=== PATIENT | male | born 1935 | race Caucasian/White ===

== ENCOUNTER 2016-12-28 12:15 | Emergency (ER) | payer BC ==
[~2016-12-28] VITALS: Ht 182.9 cm; Wt 79.0 kg
[~2016-12-28 12:15] MED LIST: ACET-1138 PO; ASPEC325 PO; CLB200 PO; GLUCOSAMINE PO; HYDR-5688 PO; LEVO75TA PO; MULT-655 PO; MULTIVITAMIN PO; [UNRECOGNIZED DRUG - CODE] PO
[2016-12-28 12:25] VITALS: TEMP 36.6; Ht 182.9 cm; Wt 79.0 kg
[2016-12-28] MEDS ORDERED: SULFAMETHOXAZOLE/TRIMETHOPRIM DS 800/160MG TAB PO STA (12:35)
--- NOTE | 2016-12-28 12:37 | EMERGENCY ROOM VISIT NOTE ---
History Report prepared by Alyson: Will Nam Under the Supervision of: Dr. Bernardino Brown M.D. First contact with patient: 12:29 Chief Complaint: LEG PAIN,LEG INJURY Stated Complaint: BLOOD CLOT LOWER LEFT LEG,REFERRED BY DR PATEL History of Present Illness The patient is a 81 year old male with a history of a blood clot in his leg who presents to the Emergency Room with complaints of waxing and waning lower left leg pain that started 2 days ago. He says that he was sitting on his couch when the pain came on, and he denies any twisting or injuries that would have caused the pain. The patient says that his leg has been very painful to the touch. He says that he put a hot pad on it the next day, which made the pain a bit better. He adds that he has been taking ibuprofen for the pain as well. The patient notes that yesterday evening, his left foot turned red. The patient has no history of ankle injuries in the past, and he is not on any blood thinners. The patient has no history of infections like this. Source of History: patient Onset: 2 days ago Position: leg (left) Symptom Intensity: very painful Timing: waxes/wanes Modifying Factors (Relieving): ibuprofen, other (heat pad) Note: Associated symptoms: Left foot redness starting yesterday evening. Denies injury to leg or foot. Review of Systems See HPI for pertinent positives & negatives. A total of 10 systems reviewed and were otherwise negative. Past Medical & Surgical Medical Problems: (1) Intestinal obstruction (2) No chronic diseases present (3) TIA (transient ischemic attack) Surgical Problems: (1) History of left hip replacement Family History Cancer Heart disease Kidney disease Social History Smoking Status: Former Smoker Smokeless Tobacco Use: No Alcohol Use: occasionally Marital Status: Housing Status: lives with family Occupation Status: employed Current/Historical Medications Scheduled Cephalexin Monohydrate (Keflex), 500 MG PO QID Levothyroxine Sodium (Synthroid), 75 MCG PO DAILY Sulfa/Trimethoprim (Bactrim Ds 800MG/160MG), 1 TAB PO BID Allergies Coded Allergies: No Known Allergies (Unverified , 12/06/13) Physical Exam Vital Signs Date Time Temp Pulse Resp B/P (MAP) Pulse Ox O2 Delivery O2 Flow Rate FiO2 12/28/16 14:45 62 18 145/75 97 Room Air 12/28/16 12:25 36.6 68 18 125/72 95 Room Air Physical Exam GENERAL: Patient is a healthy-appearing well-nourished 81 year old male. HEAD: Normocephalic atraumatic EYES: Ocular movements intact pupils equal and react to light OROPHARYNX mucous membranes are moist no exudates present no erythema or edema present NECK: Supple no nuchal rigidity CHEST: Good equal expansion LUNGS: Clear and equal to auscultation CARDIAC: Normal S1 and S2 ABDOMEN: Soft nontender no guarding BACK: No CVA tenderness EXTREMITIES: Left foot is grossly swollen, appears to have cellulitis present that extends midway up the tibia. NEURO: Patient is following commands and answering questions appropriately. Alert and oriented x3 Cranial Nerves 2-12 grossly intact Medical Decision & Procedures ER Provider Diagnostic Interpretation: US results as stated below per my review and radiologist interpretation: LEFT LOWER EXTREMITY VENOUS DOPPLER CLINICAL HISTORY: Left lower extremity swelling. COMPARISON STUDY: No previous studies for comparison. TECHNIQUE: Sonography of the deep venous system of the left lower extremity was performed. Compression and augmentation were evaluated. FINDINGS: The left common femoral, superficial femoral and popliteal veins were compressible. Augmentation was normal. Flow was shown within the deep calf vessels. IMPRESSION: No evidence of deep venous thrombus within the left lower extremity. Electronically signed by: Stevie Riley M.D. 12/28/2016 2:32 PM Dictated Date/Time: 12/28/2016 2:32 PM Medications Administered Medications (Trade) Dose Ordered Sig/Morales Route Start Time Stop Time Status Last Admin Dose Admin Cephalexin Monohydrate (Keflex Cap) 500 mg NOW ONCE PO 12/28/16 12:45 12/28/16 12:46 DC 12/28/16 12:54 500 MG Trimethoprim/ Sulfamethoxazole (Septra Ds 800/ 160MG Tab) 1 tab NOW STAT PO 12/28/16 12:35 12/28/16 12:36 DC 12/28/16 12:53 1 TAB ED Course 1231: Past medical records reviewed. The patient was evaluated in room C10. A complete history and physical examination was performed. 1235: Ordered Septra Ds 800/1600MG Tab 1 tab PO. 1245: Ordered Keflex Cap 500 mg PO. 1350: I reevaluated the patient, and after a discussion, he agreed to an ultrasound. 1447: Upon reexamination the patient is resting comfortably. I discussed results and treatment plan with the patient. he verbalizes agreement and understanding. The patient is ready for discharge. Medical Decision Differential diagnosis: Etiologies such as cellulitis, abscess, MRSA infection, DVT, necrotizing fasciitis, dermatitis, drug eruption, as well as others were entertained. This is a 81-year-old male who presents emergency department complaining of left lower extremity leg swelling. The patient is concerned about a blood clot therefore using shared medical decision-making, the patient was sent for an ultrasound of the left lower extremities. I do believe that the patient is actually suffering from a cellulitis that extends from the foot midway up the tibia. Again using shared medical decision-making the decision was made to start the patient on Keflex and Bactrim and treat the patient for cellulitis. I feel that the patient is well enough he can be safely discharged home as he has no fevers and there is noted to be any streaking up the leg. I advised the patient that the rash make it slightly worse over the next 48 hours but should start to improve. Patient was also told to return for a repeat ultrasound if the swelling continues in the next week. Patient was in agreement with the treatment plan. Medication Reconcilliation Current Medication List: was personally reviewed by me Blood Pressure Screening Patient's blood pressure: Normal blood pressure Impression Primary Impression: Cellulitis Scribe Attestation The scribe's documentation has been prepared under my direction and personally reviewed by me in its entirety. I confirm that the note above accurately reflects all work, treatment, procedures, and medical decision making performed by me. Departure Information Dispostion Home / Self-Care Prescriptions Sulfa/Trimethoprim (Bactrim Ds 800MG/160MG) Tab 1 TAB PO BID for 10 Days, #20 TAB Prov: Bernardino Brown MD 12/28/16 Cephalexin Monohydrate (KEFLEX) 500 Mg Cap 500 MG PO QID for 10 Days, #40 CAP Prov: Bernardino Brown MD 12/28/16 Referrals Pro,Hosea Don M.D. (PCP) Forms HOME CARE DOCUMENTATION FORM, IMPORTANT VISIT INFORMATION, School Instructions, Work Instructions Patient Instructions Cellulitis - [facility], [facility] Additional Instructions Need repeat Ultrasound in one week if swelling continues Return if fevers develop or red streaking You have been examined and treated today on an emergency basis only. This is not a substitute for, or an effort to provide, complete comprehensive medical care. It is impossible to recognize and treat all injuries or illnesses in a single emergency department visit. It is therefore important that you follow up closely with Dr Patel. Call as soon as possible for an appointment. Thank you for your time and consideration. I look forward to speaking with you again soon. Please don't hesitate to call us if you have any questions. Problem Qualifiers Primary Impression: Cellulitis Site of cellulitis: extremity Site of cellulitis of extremity: lower extremity Laterality: left Qualified Codes: L03.116 - Cellulitis of left lower limb
[2016-12-28] MEDS ORDERED: CEPHALEXIN MONOHYDRATE 250 MG CAP PO ONE (12:45)
[2016-12-28] MEDS ORDERED: SYN75 PO (12:52)
--- NOTE | 2016-12-28 14:33 | DIAGNOSTIC IMAGING REPORT ---
LEFT LOWER EXTREMITY VENOUS DOPPLER CLINICAL HISTORY: Left lower extremity swelling. COMPARISON STUDY: No previous studies for comparison. TECHNIQUE: Sonography of the deep venous system of the left lower extremity was performed. Compression and augmentation were evaluated. FINDINGS: The left common femoral, superficial femoral and popliteal veins were compressible. Augmentation was normal. Flow was shown within the deep calf vessels. IMPRESSION: No evidence of deep venous thrombus within the left lower extremity. Electronically signed by: Stevie Riley M.D. 12/28/2016 2:32 PM Dictated Date/Time: 12/28/2016 2:32 PM
[2016-12-28 14:45] VITALS: BP 145/75; PULSE 62; O2SAT 97
[2016-12-28] MEDS ORDERED: SULF800T23 PO (14:49)
[2016-12-28] MEDS ORDERED: CEPH500C2 PO (14:49)
== END 2016-12-28 15:01 | disposition home or self-care (01) ==
LOC: C.EDB 12:16 → C.EDC 15:01
DX: L03.116 Cellulitis of left lower limb (principal); Z86.718 Personal history of other venous thrombosis and embolism; Z86.73 Personal history of transient ischemic attack (TIA), and cerebral infarction without residual deficits; Z96.642 Presence of left artificial hip joint; Z87.891 Personal history of nicotine dependence

== ENCOUNTER → 2017-05-26 | Day surgery (SDC) | payer BC, OTHER ==
[2017-05-20 14:05] VITALS: Ht 182.9 cm; Wt 75.0 kg
[~2017-05-26] VITALS: Ht 182.9 cm; Wt 75.0 kg
[~2017-05-26] MED LIST changes: +500ML BSS 0.3ML EPI 1:1000PF IRRIG ONE; -ACET-1138 PO; +ACETAMINOPHEN 325 MG TAB PO PRN; +AMVISC PLUS 0.8ML SYRINGE INT OCU ONE; -ASPEC325 PO; +ATROPINE SULFATE 0.1 MG/ML 5ML SYR IV PRN; +BSS FLUSH ONE; -CLB200 PO; +ENDOCOAT 0.85ML SYRINGE INT OCU ONE; +EpHEDrine SULFATE INJ 50 MG/ML AMP IV PRN; +EpINEphrine INJ 1MG/ML AMP 1 MG/ML AMP ONE; -GLUCOSAMINE PO; -HYDR-5688 PO; +LACTATED RINGER'S 1000ML 500 ML IV SCH; -LEVO75TA PO; +LIDOCAINE 4% OP SOLN DROP CHARGE ONE; +LIDOCAINE 4% OP SOLN DROP CHARGE OPL SCH; +LIDOCAINE HCL 1% MPF 2 ML VIAL ONE; +LIDOCAINE HCL 2% 2 ML VIAL (20MG/ML) ONE; +MIDAZOLAM HCL 1 MG/ML 2ML VIAL ONE; +MIX: 4ML BSS 1ML EPI 1:1000 PF TOP ONE; +MOXIFLOXACIN OPH SOLN PER DROP CHARGE ONE; -MULT-655 PO; -MULTIVITAMIN PO; +MULTTAB58 PO; +NUTRTAB53 PO; +POVIDONE-IODINE OP SOLN 30 ML BTL ONE; +PROPARACAINE 0.5% OP SOLN PER DROP CHARGE OPL SCH; +PROPOFOL IV EMULSION 10 MG/ML 20 ML VIAL IV ONE; +SYN75 PO; +TOBRAMYCIN/DEXAMETHASONE OPH OINT PER APPLN CHARGE ONE; -[UNRECOGNIZED DRUG - CODE] PO
--- NOTE | 2017-05-26 09:13 | History & Physical Bridge - SC ---
H&P Re-Evaluation Bridge Note: I have examined the patient, reviewed the History & Physical and in the interval since the performance of the History & Physical I have noted the following changes of clinical significance: No changes noted
[2017-05-26] MEDS: PHENYLEPHRINE HCL 2.5% OP SOLN PER DROP CHARGE OPL SCH ×3 (09:19→09:28)
[2017-05-26] MEDS: TROPICAMIDE 1% OP SOLN PER DROP CHARGE OPL SCH ×3 (09:20→09:28)
[2017-05-26] MEDS: CYCLOPENTOLATE HCL 1% OP SOLN PER DROP CHARGE OPL SCH ×3 (09:22→09:29)
[2017-05-26] MEDS: MOXIFLOXACIN OPH SOLN PER DROP CHARGE OPL SCH ×3 (09:24→09:30)
--- NOTE | 2017-05-26 10:34 | [facility] Post Operative Brief Note ---
Immediate Operative Summary Operative Date May 26, 2017. Pre-Operative Diagnosis Left cataract Post-Operative Diagnosis same Procedure(s) Performed Left Cataract Phacoemulsification With Intraocular Lens Implant; Toric Lens Surgeon Dr. Aldridge Cassandra Developer Surgeon(s) none Estimated Blood Loss 0 Findings left cataract Specimens none Complication(s) None Disposition
--- NOTE | 2017-05-26 10:35 | [facility] Operative Report ---
Operative Report Date of Service May 26, 2017. Operative Report DATE OF OPERATION: 05/26/17 PREOPERATIVE DIAGNOSIS: Senile nuclear cataract and astigmatism, left eye POSTOPERATIVE DIAGNOSIS: Senile nuclear cataract and astigmatism, left eye PROCEDURE PERFORMED: Phacoemulsification with toric intraocular lens implantation, left eye SURGEON: Dr. Kevin Aldridge ANESTHESIA: Topical with 1% intracameral lidocaine and monitored anesthesia care COMPLICATIONS: None DESCRIPTION OF PROCEDURE: After positively identifying the patient both verbally and by wristband in the preoperative area, the left eye was marked as the operative eye. Using a Robomarker, the 168 degree axis was marked after placing a drop of proparacaine. The patient was then brought back to the operating room by the anesthesia and nursing staff where they were given a drop of tetracaine and betadine into the operative eye. They were then sterilely prepped and draped in the standard fashion typical for ophthalmic surgery. Steri-strips were placed along the upper eyelids to keep the lashes back, and a lid speculum was placed into the operative eye. At this point, a documented time out was performed with members of the ophthalmology, nursing, and anesthesia staffs all agreeing upon the correct patient, correct location for surgery, correct procedure, and correct type and power of intraocular lens to be implanted. The microscope was then swung into position. Then, a paracentesis wound was made using a sideport blade. Then, in sequence, 1% preservative-free lidocaine followed by Endocoat viscoelastic was injected into the anterior chamber. Next , the main incision was made with a keratome blade in triplanar fashion. A sharp cystotome was introduced into the eye and used to create a tear in the anterior capsule, which was directed into a continuous curvilinear capsulorrhexis using Utrata forceps. Hydrodissection was then performed with BSS on a flat-tip cannula. Next, the phacoemulsification handpiece was introduced into the eye and used to remove the nucleus in a etwyef-pol-hpxpoor fashion. This was done without complication and then the irrigation-aspiration handpiece was introduced into the eye and used to remove all remaining cortical and epinuclear material. Amvisc was then injected into the anterior chamber as well as into the capsular bag and using the lens injector system, a [id number] 20.0 D lens, serial number [id number], and expiration date 12/2020 was injected into the capsular bag and rotated into the correct position to correctly line up with the toric marking. Next, the irrigation-aspiration handpiece was used to remove all remaining Amvisc. BSS was used to hydrate the main wound, and then BSS was injected into the paracentesis site to reach physiologic pressure and then the main wound was checked and found to be watertight. The patient was given drops of Vigamox and tobradex ointment into the operative eye, and then the surrounding area was cleaned and dried. A clear plastic shield was placed over the eye and the patient was then sat up and taken from the operating room by the anesthesia staff having tolerated the procedure well and suffering no complications. DISPOSITION: The patient was returned to the recovery room in stable condition. I attest to the content of the Intraoperative Record and any orders documented therein. Any exceptions are noted below.
--- NOTE | 2017-05-26 10:36 | Discharge Instructions-SurgCtr ---
Discharge Instructions Date of Service May 26, 2017. Visit Reason for Visit: Cataract Left Eye Discharge Discharge Diagnosis / Problem: left cataract Discharge Goals Goal(s): Decrease discomfort, Improve function Activity Recommendations Activity Limitations: as noted below Anesthesia . Post Anesthesia Instructions: If you have had General Anesthesia or IV Sedation: * Do not drive today. * Resume driving when surgeon permits. * Do not make important decisions or sign legal documents today. * Call surgeon for: 1. Temperature elevations greater than 101 degrees F. 2. Uncontrollable pain. 3. Excessive bleeding. 4. Persistent nausea and vomiting. 5. Medication intolerance (nausea, vomiting or rash). * For nausea and vomiting use only clear liquids such as: tea, soda, bouillon until nausea subsides, then gradually increase diet as tolerated. * If you have any concerns or questions, call your surgeon's office. If physician is unavailable and it is an emergency, call 911 or go to the nearest emergency room. . Instructions / Follow-Up Instructions / Follow-Up ACTIVITY RECOMMENDATIONS: * Light activities. * You may walk outside, read, watch television. * You may notice redness on the white part of the eye and some blurry vision - this is normal. MEDICATIONS: Resume previous medications unless instructed otherwise by your surgeon. Start all eye drops at 12:30 pm today: * Eye drops (today): Prednisone - one drop in operative eye every 2 hours while awake Ofloxacin - one drop in operative eye every 2 hours while awake Ilevro - one drop in operative eye daily SPECIAL CARE INSTRUCTIONS: * Tape plastic shield over eye to sleep at night. Call your doctor at with any concerns or problems. FOLLOW UP VISIT: Follow-up with Dr Aldridge at [facility] as scheduled. Diet Recommendations Home Diet: no limitations Procedures Procedures Performed: Left Cataract Phacoemulsification With Intraocular Lens Implant; Toric Lens Pending Studies Studies pending at discharge: no Medical Emergencies . Who to Call and When: Medical Emergencies: If at any time you feel your situation is an emergency, please call 911 immediately. . Non-Emergent Contact Non-Emergency issues call your: Surgeon . . "Provider Documentation" section prepared by Kevin Aldridge. .
--- NOTE | 2017-05-26 10:55 | Anesthesiology Progress Note ---
Anesthesia Post Op Note Date & Time May 26, 2017 at 10:55 Vital Signs Pain Intensity: 0 Vital Signs Past 12 Hours Date Time Temp Pulse Resp B/P (MAP) Pulse Ox O2 Delivery O2 Flow Rate FiO2 05/26/17 10:51 138/80 05/26/17 10:49 61 14 05/26/17 10:49 60 14 98 05/26/17 10:45 151/84 05/26/17 10:44 66 13 05/26/17 10:44 77 13 98 05/26/17 10:40 145/83 05/26/17 10:40 131/79 05/26/17 10:39 67 05/26/17 10:39 67 96 05/26/17 10:39 36.3 68 12 145/83 96 Nasal Cannula 3 05/26/17 09:06 36.2 69 18 119/71 (87) 97 Room Air Notes Mental Status: alert / awake / arousable, participated in evaluation Pt Amnestic to Procedure: Yes Nausea / Vomiting: adequately controlled Pain: adequately controlled Airway Patency, RR, SpO2: stable & adequate BP & HR: stable & adequate Hydration State: stable & adequate Anesthetic Complications: no major complications apparent
[2017-05-26 11:04] VITALS: TEMP 36.3
[2017-05-26 11:27] VITALS: BP 119/77; PULSE 62; O2SAT 98
== END | disposition home or self-care (01) ==
LOC: X.SURG 08:51
PROVIDERS: ATTEND Ophthalmology
DX: H25.12 Age-related nuclear cataract, left eye (principal); H52.202 Unspecified astigmatism, left eye; E03.9 Hypothyroidism, unspecified; E78.5 Hyperlipidemia, unspecified; Z90.89 Acquired absence of other organs; Z96.642 Presence of left artificial hip joint; Z86.718 Personal history of other venous thrombosis and embolism; K21.9 Gastro-esophageal reflux disease without esophagitis; M19.90 Unspecified osteoarthritis, unspecified site; N40.0 Benign prostatic hyperplasia without lower urinary tract symptoms; Z86.19 Personal history of other infectious and parasitic diseases; Z86.12 Personal history of poliomyelitis

== ENCOUNTER → 2017-07-28 | Day surgery (SDC) | payer OTHER ==
[2017-07-15 15:41] VITALS: Ht 182.9 cm; Wt 75.0 kg
[~2017-07-28] VITALS: Ht 182.9 cm; Wt 75.0 kg
[~2017-07-28] MED LIST changes: +FENTANYL CITRATE INJ 50 MCG/1 ML 2 ML VIAL ONE; -LIDOCAINE 4% OP SOLN DROP CHARGE OPL SCH; +LIDOCAINE 4% OP SOLN DROP CHARGE OPR SCH; -LIDOCAINE HCL 2% 2 ML VIAL (20MG/ML) ONE; -PROPARACAINE 0.5% OP SOLN PER DROP CHARGE OPL SCH; +PROPARACAINE 0.5% OP SOLN PER DROP CHARGE OPR SCH
[2017-07-28] MEDS: PHENYLEPHRINE HCL 2.5% OP SOLN PER DROP CHARGE OPR SCH ×3 (08:47→08:57)
[2017-07-28] MEDS: TROPICAMIDE 1% OP SOLN PER DROP CHARGE OPR SCH ×3 (08:48→08:58)
[2017-07-28] MEDS: CYCLOPENTOLATE HCL 1% OP SOLN PER DROP CHARGE OPR SCH ×3 (08:49→08:59)
[2017-07-28] MEDS: MOXIFLOXACIN OPH SOLN PER DROP CHARGE OPR SCH ×3 (08:50→09:00)
--- NOTE | 2017-07-28 09:05 | History & Physical Bridge - SC ---
H&P Re-Evaluation Bridge Note: I have examined the patient, reviewed the History & Physical and in the interval since the performance of the History & Physical I have noted the following changes of clinical significance: No changes noted. right eye cataract surgery
--- NOTE | 2017-07-28 09:38 | [facility] Post Operative Brief Note ---
Immediate Operative Summary Operative Date Jul 28, 2017. Pre-Operative Diagnosis Right Eye Cataract Post-Operative Diagnosis same Procedure(s) Performed Right Cataract Phacoemulsification With Intraocular Lens Implant Surgeon Dr. Sintia Aldridge Nut Sheller Machine Operator Surgeon(s) 0 Estimated Blood Loss 0 Findings Consistent with Post-Op Diagnosis Specimens none Anesthesia Type MAC Complication(s) none Disposition Accompanied Pt To Recovery: no Disposition:
--- NOTE | 2017-07-28 09:39 | [facility] Operative Report ---
Operative Report Date of Service Jul 28, 2017. Operative Report DATE OF OPERATION: 07/28/17 PREOPERATIVE DIAGNOSIS: Senile nuclear cataract and astigmatism, right eye POSTOPERATIVE DIAGNOSIS: Senile nuclear cataract and astigmatism, right eye PROCEDURE PERFORMED: Phacoemulsification with toric intraocular lens implantation, right eye SURGEON: Dr. Kevin Aldridge ANESTHESIA: Topical with 1% intracameral lidocaine and monitored anesthesia care COMPLICATIONS: None DESCRIPTION OF PROCEDURE: After positively identifying the patient both verbally and by wristband in the preoperative area, the right eye was marked as the operative eye. Using a Robomarker, the 12 degree axis was marked after placing a drop of proparacaine. The patient was then brought back to the operating room by the anesthesia and nursing staff where they were given a drop of tetracaine and betadine into the operative eye. They were then sterilely prepped and draped in the standard fashion typical for ophthalmic surgery. Steri-strips were placed along the upper eyelids to keep the lashes back, and a lid speculum was placed into the operative eye. At this point, a documented time out was performed with members of the ophthalmology, nursing, and anesthesia staffs all agreeing upon the correct patient, correct location for surgery, correct procedure, and correct type and power of intraocular lens to be implanted. The microscope was then swung into position. Then, a paracentesis wound was made using a sideport blade. Then, in sequence, 1% preservative-free lidocaine followed by Endocoat viscoelastic was injected into the anterior chamber. Next , the main incision was made with a keratome blade in triplanar fashion. A sharp cystotome was introduced into the eye and used to create a tear in the anterior capsule, which was directed into a continuous curvilinear capsulorrhexis using Utrata forceps. Hydrodissection was then performed with BSS on a flat-tip cannula. Next, the phacoemulsification handpiece was introduced into the eye and used to remove the nucleus in a wnfgua-ubg-rohwldd fashion. This was done without complication and then the irrigation-aspiration handpiece was introduced into the eye and used to remove all remaining cortical and epinuclear material. Amvisc was then injected into the anterior chamber as well as into the capsular bag and using the lens injector system, a [id number] 20.5 D lens, serial number [id number], and expiration date 05/2019 was injected into the capsular bag and rotated into the correct position to correctly line up with the toric marking. Next, the irrigation-aspiration handpiece was used to remove all remaining Amvisc. BSS was used to hydrate the main wound, and then BSS was injected into the paracentesis site to reach physiologic pressure and then the main wound was checked and found to be watertight. The patient was given drops of Vigamox and tobradex ointment into the operative eye, and then the surrounding area was cleaned and dried. A clear plastic shield was placed over the eye and the patient was then sat up and taken from the operating room by the anesthesia staff having tolerated the procedure well and suffering no complications. DISPOSITION: The patient was returned to the recovery room in stable condition. I attest to the content of the Intraoperative Record and any orders documented therein. Any exceptions are noted below.
[2017-07-28 09:40] VITALS: TEMP 36.2
--- NOTE | 2017-07-28 09:40 | Discharge Instructions-SurgCtr ---
Discharge Instructions Date of Service Jul 28, 2017. Visit Reason for Visit: Cataract Right Eye Discharge Discharge Diagnosis / Problem: right cataract Discharge Goals Goal(s): Decrease discomfort, Improve function Activity Recommendations Activity Limitations: as noted below Anesthesia . Post Anesthesia Instructions: If you have had General Anesthesia or IV Sedation: * Do not drive today. * Resume driving when surgeon permits. * Do not make important decisions or sign legal documents today. * Call surgeon for: 1. Temperature elevations greater than 101 degrees F. 2. Uncontrollable pain. 3. Excessive bleeding. 4. Persistent nausea and vomiting. 5. Medication intolerance (nausea, vomiting or rash). * For nausea and vomiting use only clear liquids such as: tea, soda, bouillon until nausea subsides, then gradually increase diet as tolerated. * If you have any concerns or questions, call your surgeon's office. If physician is unavailable and it is an emergency, call 911 or go to the nearest emergency room. . Instructions / Follow-Up Instructions / Follow-Up ACTIVITY RECOMMENDATIONS: * Light activities. * You may walk outside, read, watch television. * You may notice redness on the white part of the eye and some blurry vision - this is normal. MEDICATIONS: Resume previous medications unless instructed otherwise by your surgeon. Start all eye drops at 11:30 am today: * Eye drops (today): Prednisone - one drop in operative eye every 2 hours while awake Ofloxacin - one drop in operative eye every 2 hours while awake Prolensa - one drop in operative eye daily SPECIAL CARE INSTRUCTIONS: * Tape plastic shield over eye to sleep at night. Call your doctor at with any concerns or problems. FOLLOW UP VISIT: Follow-up with Dr Aldridge at [facility] as scheduled. Diet Recommendations Home Diet: no limitations Procedures Procedures Performed: Right Cataract Phacoemulsification With Intraocular Lens Implant Pending Studies Studies pending at discharge: no Medical Emergencies . Who to Call and When: Medical Emergencies: If at any time you feel your situation is an emergency, please call 911 immediately. . Non-Emergent Contact Non-Emergency issues call your: Surgeon . . "Provider Documentation" section prepared by Kevin Aldridge. .
[2017-07-28 09:56] VITALS: BP 129/70; PULSE 57; O2SAT 94
--- NOTE | 2017-07-28 09:58 | Anesthesia Progress Nt - [facility] ---
Anesthesia Post Op Note Date & Time Jul 28, 2017 at 09:58 Vital Signs Pain Intensity: 0 Vital Signs Past 12 Hours Date Time Temp Pulse Resp B/P (MAP) Pulse Ox O2 Delivery O2 Flow Rate FiO2 07/28/17 09:56 57 20 129/70 (89) 94 Room Air 07/28/17 09:40 36.2 63 16 116/69 (85) 96 Room Air 07/28/17 08:41 36.4 72 16 146/75 (98) 97 Room Air Notes Mental Status: alert / awake / arousable, participated in evaluation Pt Amnestic to Procedure: Yes Nausea / Vomiting: adequately controlled Pain: adequately controlled Airway Patency, RR, SpO2: stable & adequate BP & HR: stable & adequate Hydration State: stable & adequate Anesthetic Complications: no major complications apparent
== END | disposition home or self-care (01) ==
LOC: X.SURG 08:18
PROVIDERS: ATTEND Ophthalmology
DX: H25.11 Age-related nuclear cataract, right eye (principal); H52.201 Unspecified astigmatism, right eye; E03.9 Hypothyroidism, unspecified; Z86.718 Personal history of other venous thrombosis and embolism; Z90.49 Acquired absence of other specified parts of digestive tract; Z96.642 Presence of left artificial hip joint; Z87.891 Personal history of nicotine dependence

== ENCOUNTER 2022-08-04 17:35 | Inpatient (IN) ==
[2022-08-04] MEDS ORDERED: SODIUM CHLORIDE 0.9% 1000ML 500 ML IV ONE ×2 (17:43→19:11)
--- NOTE | 2022-08-04 17:51 | Emergency Department Note ---
Impression & Plan Weakness, Anemia, Cellulitis, Hypokalemia, Pancytopenia ED Provider Note NAME: ERICA COX AGE: 87 SEX: M : 1935 ARRIVES VIA: Ambulance INFORMANT: Patient, ED PROVIDER(S): Hosea Owens DO CHIEF COMPLAINT: Weakness HPI: The patient is an 86 male who presented to the emergency department by ambulance for an evaluation of generalized weakness. The patient has a history of metastatic pancreatic cancer. He received chemotherapy. He last received chemotherapy on Wednesday. He has been very weak ever since. He has noticed some swelling in his legs and redness to his right foot. He denies having any trauma. He said no vomiting. He denies having any chest pain or difficulty breathing. He has noticed some abdominal distention after the chemotherapy treatment. The patient states that he was not seen by his family doctor today. He states otherwise he has been compliant with his outpatient medication. ROS: See above HPI for pertinent positives & negatives. A total of 10 systems reviewed and were otherwise negative. PAST MEDICAL HISTORY: See Below PAST SURGICAL HISTORY: See Below FAMILY HISTORY: See Below SOCIAL HISTORY: See Below HOME MEDICATIONS: See Below ALLERGIES: See Below VITALS: See Below PHYSICAL EXAMINATION: GENERAL: The patient is awake and nonanxious appearing. EYES: The conjunctivae are pale. The pupils are round and reactive. EARS, NOSE, MOUTH AND THROAT: The nose is without any evidence of any deformity. Mucous membranes are dry. NECK: The neck is nontender and supple. RESPIRATORY: Normal respiratory effort is noted there is no evidence of wheezing rhonchi or rales CARDIOVASCULAR: Regular rate and rhythm noted there no murmurs rubs or gallops normal S1 normal S2. GASTROINTESTINAL: The abdomen is distended. There is no specific tenderness guarding or rigidity. There is a mass in the left upper quadrant. MUSCULOSKELETAL/EXTREMITIES: There is no evidence of gross deformity full range of motion is noted in the hips and shoulders. SKIN: Pedal edema was noted bilaterally. There is significant erythema noted to the right foot. NEUROLOGIC: Patient is awake alert and oriented x3. Strength is symmetric but diminished. MEDICAL DECISION MAKING: The patient is an 87-year-old male who has a history of pancreatic cancer who presented to the emergency department for an evaluation of generalized weakness. The patient had no fever but recently received chemotherapy. He was also found on physical exam the very swollen and erythematous right lower extremity. This was presumed to be the area of infection. The patient had borderline hypotension as well as a low white blood cell count. I discussed the patient's laboratory and radiographic studies with him. He was treated with multiple IV fluid boluses as well as IV antibiotics in the emergency department. Given the patient's comorbidities as well as his findings on laboratory studies I do feel that he would be a better candidate for inpatient management. For this reason the [facility] hospitalist was consulted. Triage Nursing notes reviewed. Prior medical records reviewed Vital Signs: reviewed and remarkable for borderline hypotension and tachycardia. Differential diagnosis: Infection, dehydration, metabolic abnormality, hypo/hyperglycemia, electrolyte disturbance, anemia, hypoxia, cardiac sources, intracerebral event, toxicologic, neurologic, as well as other pathologies. ER treatment provided: See below Diagnostics interpreted by me: ECG: EKG was obtained in the emergency department. My interpretation is sinus t achycardia 110 bpm. PVCs were noted. Nonspecific T wave flattening was also appreciated. This was compared to a tracing from June 16, 2022. No specific changes were noted. Cardiac Monitoring: An order was placed for continuous cardiac monitoring. The m onitor shows a rate of 97 bpm with sinus rhythm. Laboratory studies: As stated above and show below. Imaging studies: See below. Radiographic imaging was reviewed by myself Consultation(s): Dr. Mays was consulted with the [facility] hospitalist group. He will evaluate the patient in the emergency department. 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, 'working diagnosis continues to be metastatic prostate ca' Anemia, mild DVT (deep venous thrombosis) History of, due to prolonged sitting, > resolved Dysphagia No recent mention of dysphagia in past several PCP notes History of COVID-summer > very mild symptoms Hoarseness, chronic Hyperlipidemia Resolved per pt HLD per 02/2022 PCP note - recommend statin but patient defers at this time Hypothyroidism Mild bibasilar atelectasis Per recent CT on 06/10/22 per pt PAC (premature atrial contraction) Post-polio syndrome Chronic right leg weakness per records Per PCP records- "PT for post polio and arranged for balance" Prediabetes TIA (transient ischemic attack) Pt denies - no mention of TIA in recent PCP notes Surgical History H/O hand surgery right H/O umbilical hernia repair (06/18/22) Diagnostic Laparoscopy, Peritoneal Biopsy, Omentum Biopsy, Abdominal Wall Biopsy, Umbilical Hernia Repair by 06/18/22; GA MAC #4, ETT #7.5, Gr View 2 History of biopsy (06/18/22) Diagnostic Laparoscopy, Peritoneal Biopsy, Omentum Biopsy, Abdominal Wall Biopsy, Umbilical Hernia Repair by 06/18/22 History of cataract surgery bilat History of colonoscopy History of tooth extraction History of total left hip replacement Intestinal obstruction 1961 > with surgical repair Port-A-Cath in place (07/16/22) Insertion Access Port in Left Subclavian with Fluoroscopy - Will Joshua DO S/P ankle arthrodesis S/P appendectomy S/P hernia repair S/P tonsillectomy and adenoidectomy Family History Father Coronary heart disease Hypoplastic anemia Myocardial infarction Nephrolithiasis Heart disease Mother Hypothyroidism Sister Hypothyroidism Colorectal cancer Son Marfan syndrome Grandmother Cancer Uncle Heart disease Denies family history of Ovarian cancer Prostate cancer Breast cancer Social History Smoking Status: Former smoker Tobacco Type: Pipe Age Started Using Tobacco: 19; Age Quit Using Tobacco: 45; packs per day: 2; Cigarettes Per Day: two pipe fulls a day; Second Hand Exposure: No; Hx Alcohol Use: Yes Alcohol type: beer, wine and hard liquor Alcohol Intake Frequency: 4 or More x per/Week Hx Substance Use: No Preferred Language: Peruvian Communication Ability: Effective Visual Impairment: Limited Hearing Ability: Use of Hearing Aid Planer Operator Required: No Beliefs That Will Affect Care: None marital status: Current Living Situation: Spouse current occupational status: retired current occupation: professor at [employer], Emeritus Professor How many Children do You have: 2 Feels Safe at Home: Yes Childhood Exposure to Second-Hand Smoke: Yes caffeine: Yes (1 coffee per day) during the past year weight has: decreased > 10 lbs Dental Care, Regularly: Yes Physical Activity Frequency: 1-2 Times per Week Seatbelt Use: always Sunscreen Use: No Assistive Devices: Cane, Glasses and Hearing Aid - Bilateral Allergies Allergies Allergy/AdvReac Type Severity Reaction Status Date / Time No Known Allergies Allergy Verified 08/04/22 19:07 Home Meds Home Medications Medication Instructions Recorded Confirmed cholecalciferol (vitamin D3) 50 50 mcg PO DAILY 02/18/21 08/04/22 mcg (2,000 unit) capsule calcium carbonate 550 mg-magnesium 2 tab PO Q4H PRN Acid Reflux 06/15/22 08/04/22 hydroxide 110 mg chewable tablet levothyroxine 100 mcg tablet 100 mcg PO QAM 06/15/22 08/04/22 psyllium husk 3.4 gram/5.4 gram 1 tbsp PO BID PRN Constipation 06/16/22 08/04/22 oral powder (Metamucil) acetaminophen 325 mg tablet 325 mg PO QID PRN Pain 07/13/22 08/04/22 (Tylenol) lidocaine-prilocaine 2.5 %-2.5 % 1 applic topical DIRECTED PRN 08/04/22 08/04/22 topical cream PRIOR TO PROCEDURES loperamide 2 mg capsule 2 mg PO DIRECTED PRN Diarrhea 08/04/22 08/04/22 [id number] 1 tab PO DAILY 08/04/22 08/04/22 tablet (Multivitamin 50 Plus tablet) ondansetron HCl 8 mg tablet 8 mg PO Q8H PRN NAUSEA/VOMITING 08/04/22 08/04/22 oxycodone 5 mg tablet 5 mg PO .Q4-6H PRN Pain 08/04/22 08/04/22 pantoprazole 40 mg tablet,delayed 40 mg PO HS 08/04/22 08/04/22 release prochlorperazine maleate 10 mg 10 mg PO Q6H PRN NAUSEA/VOMITING 08/04/22 08/04/22 tablet Results & Data (ED) Vital Signs Vital Signs - 24 hr 08/04/22 17:48 08/04/22 18:05 08/04/22 18:09 Temperature 36.7 C Temperature Source Oral Pulse Rate 105 H 102 H 100 H Pulse Rate [Apical] Pulse Rate from SpO2 Sensor Pulse Rhythm Regular Pulse Strength Normal Respiratory Rate 22 18 Respiratory Effort / Characteristics Non-Labored Respiratory Depth Normal Respiratory Pattern Regular Blood Pressure 125/63 Blood Pressure [Right Arm] Blood Pressure Mean 83 Blood Pressure Mean [Right Arm] Blood Pressure Position Lying Blood Pressure Position [Right Arm] Pulse Oximetry 97 96 Oxygen Delivery Method Room Air Room Air Sepsis Recent Fever Within 48 Hours No Sepsis New/Unexplained Change in Mental Status N/A Sepsis Action Taken by Nursing Previously Notified 08/04/22 18:43 08/04/22 18:34 08/04/22 18:09 Temperature Temperature Source Pulse Rate 75 98 H Pulse Rate [Apical] 97 H Pulse Rate from SpO2 Sensor 99 H Pulse Rhythm Pulse Strength Respiratory Rate 18 21 Respiratory Effort / Characteristics Respiratory Depth Respiratory Pattern Blood Pressure Blood Pressure [Right Arm] 126/56 L Blood Pressure Mean Blood Pressure Mean [Right Arm] 79 Blood Pressure Position Blood Pressure Position [Right Arm] Lying Pulse Oximetry 95 97 Oxygen Delivery Method Room Air Sepsis Recent Fever Within 48 Hours Sepsis New/Unexplained Change in Mental Status Sepsis Action Taken by Nursing 08/04/22 18:10 08/04/22 18:20 08/04/22 18:30 Temperature Temperature Source Pulse Rate 96 H 104 H Pulse Rate [Apical] Pulse Rate from SpO2 Sensor 94 H 101 H Pulse Rhythm Pulse Strength Respiratory Rate 21 20 Respiratory Effort / Characteristics Respiratory Depth Respiratory Pattern Blood Pressure 126/56 L Blood Pressure [Right Arm] Blood Pressure Mean 79 Blood Pressure Mean [Right Arm] Blood Pressure Position Blood Pressure Position [Right Arm] Pulse Oximetry 97 96 Oxygen Delivery Method Sepsis Recent Fever Within 48 Hours Sepsis New/Unexplained Change in Mental Status Sepsis Action Taken by Nursing 08/04/22 18:30 08/04/22 18:40 Temperature Temperature Source Pulse Rate 82 101 H Pulse Rate [Apical] Pulse Rate from SpO2 Sensor 79 Pulse Rhythm Pulse Strength Respiratory Rate 15 22 Respiratory Effort / Characteristics Respiratory Depth Respiratory Pattern Blood Pressure Blood Pressure [Right Arm] Blood Pressure Mean Blood Pressure Mean [Right Arm] Blood Pressure Position Blood Pressure Position [Right Arm] Pulse Oximetry 95 Oxygen Delivery Method Sepsis Recent Fever Within 48 Hours Sepsis New/Unexplained Change in Mental Status Sepsis Action Taken by [facility] Medications Current Medication List: was personally reviewed by me Laboratory Data Attestation: I reviewed the patient's lab results. 08/04/22 18:00 08/04/22 18:00 Lab Results 08/04/22 08/04/22 08/04/22 Range/Units 17:51 18:00 18:00 WBC (4.8-10.8) K/ul RBC (4.70-6.10) M/uL Hgb (14.0-18.0) g/dl Hct (42.0-52.0) % MCV (80.0-100.0) fL MCH (25.0-34.0) pg MCHC (32.0-36.0) g/dL RDW Std Deviation (36.4-46.3) fL RDW Coeff of Dinora (11.5-14.5) % Plt Count (130-400) K/uL MPV (9.4-12.4) fL Immature Gran % (Auto) % Neut % (Auto) % Lymph % (Auto) % [place] % (Auto) % Eos % (Auto) % Baso % (Auto) % Neut # (Auto) (1.40-6.50) K/uL Lymph # (Auto) (1.2-3.4) K/uL [place] # (Auto) (0.11-0.59) K/uL Eos # (Auto) (0-0.50) K/uL Baso # (Auto) (0-0.2) K/uL Immature Gran # (Auto) (0.01-0.20) K/uL Toxic Granulation Toxic Vacuolation Dohle Bodies ESR 31 H (0-20) mm/hr PT INR APTT PTT Ratio Sodium 137 (136-145) mmol/L Potassium 3.1 L (3.5-5.1) mmol/L Chloride 106 (98-107) mmol/L Carbon Dioxide 24 (21-32) mmol/L Anion Gap 7 (3-11) BUN 33 H (6-23) mg/dl Creatinine 0.70 (0.6-1.4) mg/dl Est Cr Clr Drug Dosing 78.7 ml/min Est GFR ( Amer) 99.7 ml/min Est GFR (Non-Af Amer) 86.1 ml/min BUN/Creatinine Ratio 47.1 H (10-20) Glucose 119 H (70-99(Fasting)) mg/dl Lactate (0.4-2.0) mmol/L Calcium 6.8 L (8.5-10.1) mg/dl Magnesium 1.9 (1.7-2.4) mg/dl Total Bilirubin 0.5 (0.2-1.0) mg/dl Direct Bilirubin 0.1 (0-0.2) mg/dl AST 35 (13-39) U/L ALT 26 (7-52) U/L Alkaline Phosphatase 55 (34-104) U/L Troponin I High Sens 23.1 H (0-20) pg/ml C-Reactive Protein 17.09 H (0-0.5) mg/dl Total Protein 4.8 L (6.0-8.3) gm/dl Albumin 2.3 L (3.4-5.0) gm/dl Procalcitonin (0-0.5) ng/ml SARS-CoV-2 (PCR) NEGATIVE (Negative) Influenza Type A (PCR) Negative (Neg) Influenza Type B (PCR) Negative (Neg) RSV (RT-PCR) Negative (Neg) 08/04/22 08/04/22 08/04/22 Range/Units 18:00 18:00 18:00 WBC 1.86 L (4.8-10.8) K/ul RBC 2.88 L (4.70-6.10) M/uL Hgb 8.7 L (14.0-18.0) g/dl Hct 25.3 L (42.0-52.0) % MCV 87.8 (80.0-100.0) fL MCH 30.2 (25.0-34.0) pg MCHC 34.4 (32.0-36.0) g/dL RDW Std Deviation 44.4 (36.4-46.3) fL RDW Coeff of Dinora 14.0 (11.5-14.5) % Plt Count 117 L (130-400) K/uL MPV 10.8 (9.4-12.4) fL Immature Gran % (Auto) 1.1 % Neut % (Auto) 86.0 % Lymph % (Auto) 9.1 % [place] % (Auto) 1.6 % Eos % (Auto) 0.0 % Baso % (Auto) 2.2 % Neut # (Auto) 1.60 (1.40-6.50) K/uL Lymph # (Auto) 0.17 L (1.2-3.4) K/uL [place] # (Auto) 0.03 L (0.11-0.59) K/uL Eos # (Auto) 0.00 (0-0.50) K/uL Baso # (Auto) 0.04 (0-0.2) K/uL Immature Gran # (Auto) 0.02 (0.01-0.20) K/uL Toxic Granulation 1+ Toxic Vacuolation 1+ Dohle Bodies 1+ ESR (0-20) mm/hr PT Cancelled INR Cancelled APTT Cancelled PTT Ratio Cancelled Sodium (136-145) mmol/L Potassium (3.5-5.1) mmol/L Chloride (98-107) mmol/L Carbon Dioxide (21-32) mmol/L Anion Gap (3-11) BUN (6-23) mg/dl Creatinine (0.6-1.4) mg/dl Est Cr Clr Drug Dosing ml/min Est GFR ( Amer) ml/min Est GFR (Non-Af Amer) ml/min BUN/Creatinine Ratio (10-20) Glucose (70-99(Fasting)) mg/dl Lactate 1.4 (0.4-2.0) mmol/L Calcium (8.5-10.1) mg/dl Magnesium (1.7-2.4) mg/dl Total Bilirubin (0.2-1.0) mg/dl Direct Bilirubin (0-0.2) mg/dl AST (13-39) U/L ALT (7-52) U/L Alkaline Phosphatase (34-104) U/L Troponin I High Sens (0-20) pg/ml C-Reactive Protein (0-0.5) mg/dl Total Protein (6.0-8.3) gm/dl Albumin (3.4-5.0) gm/dl Procalcitonin (0-0.5) ng/ml SARS-CoV-2 (PCR) (Negative) Influenza Type A (PCR) (Neg) Influenza Type B (PCR) (Neg) RSV (RT-PCR) (Neg) 08/04/22 Range/Units 18:00 WBC (4.8-10.8) K/ul RBC (4.70-6.10) M/uL Hgb (14.0-18.0) g/dl Hct (42.0-52.0) % MCV (80.0-100.0) fL MCH (25.0-34.0) pg MCHC (32.0-36.0) g/dL RDW Std Deviation (36.4-46.3) fL RDW Coeff of Dinora (11.5-14.5) % Plt Count (130-400) K/uL MPV (9.4-12.4) fL Immature Gran % (Auto) % Neut % (Auto) % Lymph % (Auto) % [place] % (Auto) % Eos % (Auto) % Baso % (Auto) % Neut # (Auto) (1.40-6.50) K/uL Lymph # (Auto) (1.2-3.4) K/uL [place] # (Auto) (0.11-0.59) K/uL Eos # (Auto) (0-0.50) K/uL Baso # (Auto) (0-0.2) K/uL Immature Gran # (Auto) (0.01-0.20) K/uL Toxic Granulation Toxic Vacuolation Dohle Bodies ESR (0-20) mm/hr PT INR APTT PTT Ratio Sodium (136-145) mmol/L Potassium (3.5-5.1) mmol/L Chloride (98-107) mmol/L Carbon Dioxide (21-32) mmol/L Anion Gap (3-11) BUN (6-23) mg/dl Creatinine (0.6-1.4) mg/dl Est Cr Clr Drug Dosing ml/min Est GFR ( Amer) ml/min Est GFR (Non-Af Amer) ml/min BUN/Creatinine Ratio (10-20) Glucose (70-99(Fasting)) mg/dl Lactate (0.4-2.0) mmol/L Calcium (8.5-10.1) mg/dl Magnesium (1.7-2.4) mg/dl Total Bilirubin (0.2-1.0) mg/dl Direct Bilirubin (0-0.2) mg/dl AST (13-39) U/L ALT (7-52) U/L Alkaline Phosphatase (34-104) U/L Troponin I High Sens (0-20) pg/ml C-Reactive Protein (0-0.5) mg/dl Total Protein (6.0-8.3) gm/dl Albumin (3.4-5.0) gm/dl Procalcitonin 1.19 H (0-0.5) ng/ml SARS-CoV-2 (PCR) (Negative) Influenza Type A (PCR) (Neg) Influenza Type B (PCR) (Neg) RSV (RT-PCR) (Neg) Administered Medications Vancomycin HCl 2,750 mg/ (Sodium Chloride) 555 mls @ 200 mls/hr IV NOW ONE Stop: 08/04/22 21:35 Last Admin: 08/04/22 19:28 Dose: 200 mls/hr Documented By: CGK Sodium Chloride (Nss 1000ml) 1,000 mls @ 999 mls/hr IV .Q1H1M ONE Stop: 08/04/22 19:57 Last Admin: 08/04/22 19:17 Dose: 999 mls/hr Documented By: VOLODYMYRK Discontinued Medications Sodium Chloride (Nss 1000ml) 500 mls @ 999 mls/hr IV .Q31M ONE Stop: 08/04/22 18:13 Last Infusion: 08/04/22 19:08 Dose: 0 mls/hr Documented By: Admin: 08/04/22 18:30 Dose: 999 mls/hr Documented By: VOLODYMYRK Cefepime HCl (Maxipime) 2,000 mg in 20 mls @ 5 mls/min IV NOW STA; Protocol Stop: 08/04/22 19:00 Last Admin: 08/04/22 19:15 Dose: 5 mls/min Documented By: VOLODYMYRK Imaging Data Attestation: I personally reviewed and interpreted this imaging study as follows: My Impression: 1 view chest x-ray was obtained in the emergency department. My interpretation is no definite filtrate, no free air. Final report pending. Radiologist's Impression: Chest X-Ray 08/04/22 17:44 SINGLE VIEW CHEST CLINICAL HISTORY: Sepsis. FINDINGS: An AP, portable, upright chest radiograph is compared to study dated 07/16/2022 and correlated with PET/CT dated 07/09/2022. The examination is degraded by portable technique and patient rotation. A left subclavian central venous infusion port is unchanged in position. The cardiomediastinal silhouette is unremarkable. Chronic interstitial thickening similar to previous. There is mild bibasilar scarring/atelectasis. No airspace consolidation or pleural effusion is identified. No pneumothorax is seen. The skeletal structures are osteopenic. The bony thorax is grossly intact. IMPRESSION: No acute cardiopulmonary abnormality. ACT 112: Negative or not required by law. Electronically signed by: Young Sinha M.D. 08/04/2022 6:16 PM Discharge Plan Visit Data Chief Complaint: Weakness ED Provider: Hosea Owens Discharge Problem: Weakness, Anemia, Cellulitis, Hypokalemia, Pancytopenia Patient Disposition: Being Evaluated by Hospitalist Forms Stand Alone Forms: My [facility] Prescriptions Prescriptions: No Action cholecalciferol (vitamin D3) 50 mcg (2,000 unit) capsule 50 mcg PO DAILY Metamucil 3.4 gram/5.4 gram powder 1 tbsp PO BID PRN (Reason: Constipation) Rx Instructions: mix into at least 8 oz of water or juice before administering levothyroxine 100 mcg tablet 100 mcg PO QAM calcium carbonate-mag hydroxid 550-110 mg Tablet,Chewable 2 tab PO Q4H PRN (Reason: Acid Reflux) acetaminophen [Tylenol] 325 mg Tablet 325 mg PO QID PRN (Reason: Pain) loperamide [Imodium] 2 mg Capsule 2 mg PO DIRECTED PRN (Reason: Diarrhea) ondansetron HCl 8 mg tablet 8 mg PO Q8H PRN (Reason: NAUSEA/VOMITING) prochlorperazine maleate 10 mg tablet 10 mg PO Q6H PRN (Reason: NAUSEA/VOMITING) lidocaine-prilocaine 2.5-2.5 % cream 1 applic topical DIRECTED PRN (Reason: PRIOR TO PROCEDURES) pantoprazole 40 mg tablet,delayed release (DR/EC) 40 mg PO HS oxycodone 5 mg tablet 5 mg PO .Q4-6H PRN (Reason: Pain) Multivitamin 50 Plus Tablet 1 tab PO DAILY Referrals Referrals: Hosea Patel MD [Primary Care Provider] - Anemia Qualifiers: Anemia type: unspecified type Qualified Code(s): D64.9 - Anemia, unspecified Cellulitis Qualifiers: Site of cellulitis: extremity Site of cellulitis of extremity: lower extremity Laterality: right Qualified Code(s): L03.115 - Cellulitis of right lower limb
--- NOTE | 2022-08-04 18:18 | XRay Report ---
SINGLE VIEW CHEST CLINICAL HISTORY: Sepsis. FINDINGS: An AP, portable, upright chest radiograph is compared to study dated 07/16/2022 and correlat ed with PET/CT dated 07/09/2022. The examination is degraded by portable technique and patient rotatio n. A left subclavian central venous infusion port is unchanged in position. The cardiomediastinal frances houette is unremarkable. Chronic interstitial thickening similar to previous. There is mild bibasilar scarring/atelectasis. No airspace consolidation or pleural effusion is identified. No pneumothorax i s seen. The skeletal structures are osteopenic. The bony thorax is grossly intact. IMPRESSION: No acute cardiopulmonary abnormality. ACT 112: Negative or not required by law. Electronically signed by: Young Sinha M.D. 08/04/2022 6:16 PM
[2022-08-04 18:34] LABS: Albumin Level 2.3 gm/dl (3.4-5.0); BUN Creatinine Ratio 47.1 (10-20); Bilirubin Direct 0.1 mg/dl (0-0.2); Bilirubin,Total 0.5 mg/dl (0.2-1.0); C Reactive Protein 17.09 mg/dl (0-0.5); Calcium 6.8 mg/dl (8.5-10.1); Creatinine Clr Calc Pharmacy 78.7 ml/min; Est GFR (African American) 99.7 ml/min; Est GFR (Non-African American) 86.1 ml/min; Magnesium 1.9 mg/dl (1.7-2.4); Potassium 3.1 mmol/L (3.5-5.1); Total Protein 4.8 gm/dl (6.0-8.3)
[2022-08-04 18:40] LABS: Troponin I High Sensitivity 23.1 pg/ml (0-20)
[2022-08-04 18:50] LABS: Influenza A virus by PCR Negative (Neg); Influenza B virus by PCR Negative (Neg); RSV by PCR Negative (Neg); SARS CoV2 RNA(COVID-19) Ceph NEGATIVE (Negative)
[2022-08-04] MEDS ORDERED: CEFEPIME 2,000 MG/20 ML VIAL IV STA (18:57)
[2022-08-04] MEDS ORDERED: VANCOMYCIN CONSULT ACTIVE PRN (18:57)
[2022-08-04] MEDS ORDERED: SODIUM CHLORIDE 0.9% 1000ML 1,000 ML IV ONE (18:57)
[2022-08-04] MEDS ORDERED: VANCOMYCIN HCL 2,750 MG in SODIUM CHLORIDE 0.9% 500 ML IV ONE (18:57)
[2022-08-04 19:05] LABS: Hematocrit (blood only) 25.3 % (42.0-52.0); Hemoglobin 8.7 g/dl (14.0-18.0); Mean Corpuscular Hemoglobin 30.2 pg (25.0-34.0); Mean Corpuscular Hgb Conc 34.4 g/dL (32.0-36.0); Mean Corpuscular Volume 87.8 fL (80.0-100.0); Mean Platelet Volume 10.8 fL (9.4-12.4); Platelet Count 117 K/uL (130-400); RDW Standard Deviation 44.4 fL (36.4-46.3); Red Blood Count 2.88 M/uL (4.70-6.10); White Blood Count 1.86 K/ul (4.8-10.8)
[2022-08-04 19:06] LABS: Basophils # (auto) 0.04 K/uL (0-0.2); Basophils % (auto) 2.2 %; Dohle Bodies 1+; Immature Granulocytes # (auto) 0.02 K/uL (0.01-0.20); Immature Granulocytes % (auto) 1.1 %; Lymphocytes # (auto) 0.17 K/uL (1.2-3.4); Lymphocytes % (auto) 9.1 %; Monocytes # (auto) 0.03 K/uL (0.11-0.59); Monocytes % (auto) 1.6 %; Toxic Granulation 1+; Toxic Vacuolation 1+
[2022-08-04] MEDS ORDERED: POTASSIUM CHLORIDE CRTAB 20 MEQ TABCR PO STA (19:39)
--- NOTE | 2022-08-04 20:04 | History & Physical Report ---
Date of Service August 04, 2022 Assessment & Plan (1) Cellulitis: Plan: 87 y/o male w/ metastatic presumably pancreatic adenocarcinoma, preDM, HLD, and hypothyroidism who presents w/ generalized weakness since receiving his 3rd chemo treatment on 07/31/22, w/ probable cellulitis of R ankle/foot. 2/4 SIRS. procal 1.19. CRP 17.09. Sinus tach likely 2/2 infection. Started on vanc+cefepime in ED. Blood cultures pending. Check venous duplex RLE. (2) Generalized weakness: Plan: Secondary to above. PT/OT ordered. (3) Anemia: Plan: Hb 8.7, notable drop from baseline of 13s. No symptoms of active bleed. Trend CBC. Per recent chemo, consider marrow suppression. Check retic count and smear. Transfusion threshold Hb <7. (4) Adenocarcinoma carcinomatosis: Plan: Noted. (5) Hypothyroidism: Plan: Continue home levothyroxine when able to tolerate PO. (6) Hypokalemia: Plan: Repleting. Follow BMP, Mg. Plan FEN/GI: Regular pureed. Speech eval ordered. ppx: sq Lovenox; consider holding if Hb continues to downtrend code: full dispo: med tele History of Present Illness Chief Complaint: generalized weakness Primary Care Provider: Hosea Patel MD 87 y/o male w/ metastatic presumably pancreatic adenocarcinoma, preDM, HLD, and hypothyroidism who presents w/ generalized weakness since receiving his 3rd chemo treatment on 07/31/22. He has essentially been bedbound for the past few days secondary to this. He had intraable nausea w/ some episodes of emesis post chemo. This was followed by a day of diarrhea. PO intake has been poor. He also noted R foot swelling and redness. He denies having subjective fevers/chills. Per chart review, hx of provoked DVTx1 in the 1970s. Patient denies other VTE risk factors such as family hx. He has had dyspnea in the past few days at rest that he attributes to the generalized weakness. Patient denies hx of CHF. He has not had recently coughing symptoms. He quit tobacco in the . Currently, he has mild abd discomfort. is present at bedside and helped provide additional history. ED course: vanc+cefepime. 2L NSS. Allergies Allergy/AdvReac Type Severity Reaction Status Date / Time No Known Allergies Allergy Verified 08/04/22 19:07 Home Medications Medication Instructions Recorded Confirmed Type cholecalciferol (vitamin D3) 50 50 mcg PO DAILY 02/18/21 08/04/22 History mcg (2,000 unit) capsule calcium carbonate 550 mg-magnesium 2 tab PO Q4H PRN Acid Reflux 06/15/22 08/04/22 History hydroxide 110 mg chewable tablet levothyroxine 100 mcg tablet 100 mcg PO QAM 06/15/22 08/04/22 History psyllium husk 3.4 gram/5.4 gram 1 tbsp PO BID PRN Constipation 06/16/22 08/04/22 History oral powder (Metamucil) acetaminophen 325 mg tablet 325 mg PO QID PRN Pain 07/13/22 08/04/22 History (Tylenol) lidocaine-prilocaine 2.5 %-2.5 % 1 applic topical DIRECTED PRN 08/04/22 08/04/22 History topical cream PRIOR TO PROCEDURES loperamide 2 mg capsule 2 mg PO DIRECTED PRN Diarrhea 08/04/22 08/04/22 Hist ory spkzhsqdjhjp-rpvjvtsa-wppbbz 1 tab PO DAILY 08/04/22 08/04/22 History tablet (Multivitamin 50 Plus tablet) ondansetron HCl 8 mg tablet 8 mg PO Q8H PRN NAUSEA/VOMITING 08/04/22 08/04/22 History oxycodone 5 mg tablet 5 mg PO .Q4-6H PRN Pain 08/04/22 08/04/22 History pantoprazole 40 mg tablet,delayed 40 mg PO HS 08/04/22 08/04/22 History release prochlorperazine maleate 10 mg 10 mg PO Q6H PRN NAUSEA/VOMITING 08/04/22 08/04/22 History tablet 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, 'working diagnosis continues to be metastatic prostate ca' Anemia, mild DVT (deep venous thrombosis) History of, due to prolonged sitting, 1969's > resolved Dysphagia No recent mention of dysphagia in past several PCP notes History of COVID-summer > very mild symptoms Hoarseness, chronic Hyperlipidemia Resolved per pt HLD per 02/2022 PCP note - recommend statin but patient defers at this time Hypothyroidism Mild bibasilar atelectasis Per recent CT on 06/10/22 per pt PAC (premature atrial contraction) Post-polio syndrome Chronic right leg weakness per records Per PCP records- "PT for post polio and arranged for balance" Prediabetes TIA (transient ischemic attack) Pt denies - no mention of TIA in recent PCP notes Surgical History H/O hand surgery right H/O umbilical hernia repair (06/18/22) Diagnostic Laparoscopy, Peritoneal Biopsy, Omentum Biopsy, Abdominal Wall Biopsy, Umbilical Hernia Repair by 06/18/22; GA MAC #4, ETT #7.5, Gr View 2 History of biopsy (06/18/22) Diagnostic Laparoscopy, Peritoneal Biopsy, Omentum Biopsy, Abdominal Wall Biopsy, Umbilical Hernia Repair by 06/18/22 History of cataract surgery bilat History of colonoscopy History of tooth extraction History of total left hip replacement Intestinal obstruction 1961 > with surgical repair Port-A-Cath in place (07/16/22) Insertion Access Port in Left Subclavian with Fluoroscopy - Will Joshua, DO S/P ankle arthrodesis S/P appendectomy S/P hernia repair S/P tonsillectomy and adenoidectomy Family History Father Coronary heart disease Hypoplastic anemia Myocardial infarction Nephrolithiasis Heart disease Mother Hypothyroidism Sister Hypothyroidism Colorectal cancer Son Marfan syndrome Grandmother Cancer Uncle Heart disease Denies family history of Ovarian cancer Prostate cancer Breast cancer Social History Smoking Status: Never smoker Tobacco Type: Pipe Age Started Using Tobacco: 19; Age Quit Using Tobacco: 45; packs per day: 2; Cigarettes Per Day: two pipe fulls a day; Second Hand Exposure: No; Hx Alcohol Use: No Hx Substance Use: No Preferred Language: Persian Communication Ability: Effective Visual Impairment: Limited Hearing Ability: Use of Hearing Aid Physician Assistant Surgery Required: No Beliefs That Will Affect Care: None marital status: Current Living Situation: Spouse Current Living Situation Comment: home w spouse current occupational status: retired current occupation: professor at [employer], Emeritus Professor How many Children do You have: 2 Other Information That Helps Us Care for You: No Feels Safe at Home: Yes Safety Concerns: Feels Safe At This Time Childhood Exposure to Second-Hand Smoke: Yes caffeine: Yes (1 coffee per day) during the past year weight has: decreased > 10 lbs Dental Care, Regularly: Yes Physical Activity Frequency: 1-2 Times per Week Seatbelt Use: always Sunscreen Use: No Assistive Devices: Glasses and Walker Review of Systems Review of Systems: All systems reviewed & are unremarkable except as noted in HPI & below Physical Exam Physical Exam: General: Grossly A&O. NAD. Cooperative. HEENT: Atraumatic, normocephalic. EOMI Pulm: CTAB. -wheezes, -rales, -rhonchi. No respiratory distress. Cardiac: RRR, -mrg. R ankle and foot w/ 2+ pitting edema, worse at ankle. Abdominal: Mild generalized abd ttp. Nondistended, soft. Integ: R ankle and dorsal proximal foot w/ bright red erythema. Small 1mm scab proximal to achilles. Results & Data Results & Data ([facility]) Vital Signs (Past 12 Hours) Vital Signs Temp Pulse Pulse Resp BP BP Pulse Ox 08/04/22 18:40 101 H 22 08/04/22 18:30 82 15 95 08/04/22 18:30 126/56 L 08/04/22 18:20 104 H 20 96 08/04/22 18:10 96 H 21 97 08/04/22 18:09 98 H 21 97 08/04/22 18:34 75 08/04/22 18:43 97 H 18 126/56 L 95 08/04/22 18:09 100 H 08/04/22 18:05 102 H 18 96 08/04/22 17:48 36.7 C 105 H 22 125/63 97 O2 Del Method 08/04/22 18:40 08/04/22 18:30 08/04/22 18:30 08/04/22 18:20 08/04/22 18:10 08/04/22 18:09 08/04/22 18:34 08/04/22 18:43 Room Air 08/04/22 18:09 08/04/22 18:05 Room Air 08/04/22 17:48 Room Air Laboratory Results Cardiac Enzymes 08/04/22 Range/Units 18:00 AST 35 (13-39) U/L Troponin I High Sens 23.1 H (0-20) pg/ml Coagulation 08/04/22 Range/Units 18:00 PT Cancelled APTT Cancelled CBC 08/04/22 Range/Units 18:00 WBC 1.86 L (4.8-10.8) K/ul RBC 2.88 L (4.70-6.10) M/uL Hgb 8.7 L (14.0-18.0) g/dl Hct 25.3 L (42.0-52.0) % Plt Count 117 L (130-400) K/uL Neut # (Auto) 1.60 (1.40-6.50) K/uL Lymph # (Auto) 0.17 L (1.2-3.4) K/uL [place] # (Auto) 0.03 L (0.11-0.59) K/uL Eos # (Auto) 0.00 (0-0.50) K/uL Baso # (Auto) 0.04 (0-0.2) K/uL Comprehensive Metabolic Panel 08/04/22 Range/Units 18:00 Sodium 137 (136-145) mmol/L Potassium 3.1 L (3.5-5.1) mmol/L Chloride 106 (98-107) mmol/L Carbon Dioxide 24 (21-32) mmol/L BUN 33 H (6-23) mg/dl Creatinine 0.70 (0.6-1.4) mg/dl Glucose 119 H (70-99(Fasting)) mg/dl Calcium 6.8 L (8.5-10.1) mg/dl Direct Bilirubin 0.1 (0-0.2) mg/dl AST 35 (13-39) U/L ALT 26 (7-52) U/L Alkaline Phosphatase 55 (34-104) U/L Total Protein 4.8 L (6.0-8.3) gm/dl Albumin 2.3 L (3.4-5.0) gm/dl Intake and Output 08/04/22 08/04/22 08/04/22 06:59 14:59 22:59 Intake Total 500 / 500 Balance 500 / 500 Intake: IV 500 / 500 Sodium Chloride 0.9% 1000ML 500 500 / 500 ml @ 999 mls/hr IV .Q31M ONE Rx#:[id number] Other: Weight 72.1 kg Weight Measurement Method Built in [facility] Patient Weight 08/05/22 06:59 Weight 72.1 kg Diagnostic Findings Chest X-Ray 08/04/22 17:44 SINGLE VIEW CHEST CLINICAL HISTORY: Sepsis. FINDINGS: An AP, portable, upright chest radiograph is compared to study dated 07/16/2022 and correlated with PET/CT dated 07/09/2022. The examination is degraded by portable technique and patient rotation. A left subclavian central venous infusion port is unchanged in position. The cardiomediastinal silhouette is unremarkable. Chronic interstitial thickening similar to previous. There is mild bibasilar scarring/atelectasis. No airspace consolidation or pleural effusion is identified. No pneumothorax is seen. The skeletal structures are osteopenic. The bony thorax is grossly intact. IMPRESSION: No acute cardiopulmonary abnormality. ACT 112: Negative or not required by law. Electronically signed by: Young Sinha M.D. 08/04/2022 6:16 PM Code Status & VTE Plan Code Status full VTE Prophylaxis Plan VTE Prophylaxis will be ordered: Yes Supervising Physician Co-Signing Physician Notes Attending addendum: I have physically seen this patient, have supervised the medical residents activities, and agree with the H&P unless as otherwise noted. Assessment and Plan: Right lower extremity cellulitis- Continue vancomycin and cefepime IV begun in ED Right ordering venous Doppler to assess for possible DVT Diarrhea- Likely secondary to chemotherapy versus C. difficile colitis versus infectious colitis- Family was advised to avoid using Imodium unless we are sure there is no infectious process going on Could use cholestyramine in the future if recurrent Adenocarcinoma carcinomatosis- Consult oncology Dr. Burks Hypothyroidism- Continue levothyroxine Hypokalemia- Potassium 3.1 replaced primarily IV Repeat laboratories in a.m. continue with IV fluids to address Dehydration Remaining orders and notations as noted Resident Activity Tracking Resident Involvement: Resident Care Provided Care Provided: Adult Hospital Medicine (1) Cellulitis Laterality: right Site of cellulitis: extremity Site of cellulitis of extremity: lower extremity Qualified Code(s): L03.115 - Cellulitis of right lower limb (3) Anemia Anemia type: unspecified type Qualified Code(s): D64.9 - Anemia, unspecified
[2022-08-04 20:57] LABS: INR 1.2 (0.9-1.1); Partial Thromboplastin Ratio 1.1; Prothrombin Time 12.7 Seconds (9.0-12.0)
[2022-08-04] MEDS: POTASSIUM CHLORIDE / WTR 10 MEQ/100 ML PLCT IV SCH (23:18)
[2022-08-05] MEDS: POTASSIUM CHLORIDE / WTR 10 MEQ/100 ML PLCT IV SCH ×3 (00:25→02:27)
[2022-08-05 00:44] LABS: Appearance Urine Clear (Clear); Bacteria Urine Automated Negative (Negative); Bilirubin Urine Negative (Negative); Blood Urine Negative (Negative); Color Urine Dark Yellow; Glucose Urine UA Negative (Negative); Ketones Urine 1+ (Negative); Leukocyte Esterase Urine Trace (Negative); Nitrite Urine Negative (Negative); Protein Urine 1+ (Negative); Specific Gravity Urine 1.031 (1.000-1.030); Urobilinogen Urine Negative (Negative); pH Urine 5.5 (4.5-7.5)
[2022-08-05] MEDS ORDERED: MAGNESIUM SULFATE / D5W 1 GM/100 ML BAG IV ONE (01:12)
[2022-08-05] MEDS: CEFEPIME 2,000 MG in SYRINGE 0 ML IV SCH ×2 (05:55→19:19)
[2022-08-05 06:44] LABS: Hematocrit (blood only) 26.8 % (42.0-52.0); Hemoglobin 9.1 g/dl (14.0-18.0); Mean Corpuscular Hemoglobin 29.7 pg (25.0-34.0); Mean Corpuscular Volume 87.6 fL (80.0-100.0); Mean Platelet Volume 10.5 fL (9.4-12.4); Platelet Count 101 K/uL (130-400); RDW Standard Deviation 44.1 fL (36.4-46.3); Red Blood Count 3.06 M/uL (4.70-6.10); White Blood Count 1.52 K/ul (4.8-10.8)
[2022-08-05 07:05] LABS: Basophils # (auto) 0.03 K/uL (0-0.2); Dohle Bodies 1+; Immature Granulocytes # (auto) 0.04 K/uL (0.01-0.20); Immature Granulocytes % (auto) 2.6 %; Lymphocytes # (auto) 0.22 K/uL (1.2-3.4); Lymphocytes % (auto) 14.5 %; Monocytes # (auto) 0.08 K/uL (0.11-0.59); Monocytes % (auto) 5.3 %; Neutrophils # (auto) 1.15 K/uL (1.40-6.50); Neutrophils % (auto) 75.6 %; Reticulocyte % 0.4 % (0.5-2.0); Reticulocytes # 0.01 10^6/uL (0.02-0.10); Toxic Granulation 1+
[2022-08-05 07:07] LABS: Albumin Level 2.3 gm/dl (3.4-5.0); BUN Creatinine Ratio 39.5 (10-20); Bilirubin,Total 0.5 mg/dl (0.2-1.0); Calcium 6.9 mg/dl (8.5-10.1); Creatinine Clr Calc Pharmacy 72.9 ml/min; Est GFR (African American) 96.4 ml/min; Est GFR (Non-African American) 83.2 ml/min; Globulin 2.4 gm/dl (2.5-4.0); Magnesium 2.1 mg/dl (1.7-2.4); Potassium 3.8 mmol/L (3.5-5.1); Total Protein 4.7 gm/dl (6.0-8.3)
[2022-08-05 07:09] LABS: Troponin I High Sensitivity 25.8 pg/ml (0-20)
[2022-08-05 07:13] LABS: INR 1.2 (0.9-1.1); Prothrombin Time 12.9 Seconds (9.0-12.0)
[2022-08-05] MEDS: ENOXAPARIN INJ 40 MG/0.4 ML SYR SQ SCH (08:32)
[2022-08-05] MEDS: VANCOMYCIN HCL 750 MG in SODIUM CHLORIDE 0.9% 250 ML IV SCH ×2 (08:32→20:51)
[2022-08-05] MEDS ORDERED: STAT IV STA (08:47)
[2022-08-05] MEDS ORDERED: ENOXAPARIN INJ 30 MG/0.3 ML SYR SQ SCH (09:00)
[2022-08-05] MEDS ORDERED: CALCIUM GLUCONATE 10% 1,000 MG in DEXTROSE 5% 50 ML IV ONE (09:00)
--- NOTE | 2022-08-05 09:47 | Ultrasound Report ---
RIGHT LOWER EXTREMITY VENOUS DOPPLER HISTORY: swelling of RLE COMPARISON STUDY: None. FINDINGS: There is normal compressibility, flow, and augmentation within the right lower extremity de ep venous system. IMPRESSION: No DVT within the right lower extremity ACT 112: Negative or not required by law. Electronically signed by: Nicolas Aggarwal M.D. 08/05/2022 9:45 AM
[2022-08-05] MEDS: HEPARIN 100 UNIT/ML 5ML FLUSH FLUSH PRN (10:32)
--- NOTE | 2022-08-05 11:38 | Hospitalist Progress Note ---
Date of Service August 05, 2022 Assessment & Plan (1) Cellulitis of right leg: Plan: ongoing. cont cefepime; continue vancomycin. follow exam and blood cultures. no evidence of deep infection nor joint infectoin of RLE. (2) Antineoplastic chemotherapy induced pancytopenia: Plan: cell lines all low but acceptable. neutropenia is mild. neutropenic precautions in place. cbc w/ diff in am. (3) Neutropenia: Plan: ANC is just shy of 1500. neutropenic precautions. repeat CBC with diff in am. 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 follows with Dr Arroyo[facility]. Recently initiated gemcitabine and abraxane. last chemo was 07/31/22. now with #2, #3. cbc with diff in am. no evidence of any SBP (does have ascites on last CT) on exam. due to abd distension will check 2-view abd x-rays -- r/o ileus or obstructive process 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 (7) Candidiasis of mouth and esophagus: Plan: start nystatin swish - 5cc po QID can also use magic mouthwash qid swish/spit for discomfort (8) History of DVT (deep vein thrombosis): Plan: 1970s by report while here - lovenox 40mg daily for DVT Proph (9) Severe protein-calorie malnutrition: Plan: 15 pounds of weight loss - 2nd to stage 4 cancer - over the last 2 months will order boost, MVI, etc (10) Hypocalcemia: Plan: even if corrected for low albumin his total calcium is high 7's will give calcium gluconate 1 amp x 1 and recheck level am (11) DVT prophylaxis: Plan: lovenox 40mg daily Plan updated extensively by phone this evening PT, OT susan speech rosa appreciated Admission and Anticipated Discharge Date Admission Date: August 04, 2022 Subjective patient c/o fatigue, weakness, poor appetite, dry mouth, mouth discomfort denies significant pain in the right foot or ankle able to weight bear on right foot/leg without difficulty had emesis at home for several days - now resolved had diarrhea at home for several days - now resolved, none since admission also with abdominal distension and bloating denies any dyspnea at rest denies chest pain tele overnight - NSR Review of Systems Review of Systems: gen - no fevers or chills cv - no chest pain; no orthopnea pulm - some cough, states it is chronic; mild sputum production GI - mild pain in abdomen along with distension/bloating Physical Exam Physical Exam: gen - appears tired, thin; but NAD mouth - MM dry, ?thrush plaques posterior buccal mucosa? neck - no JVD heart - RRR, s1 s2 lungs - coughing during the exam, but CTA b/l; mildly decreased BS bases abd - distended, BS+, tumor deposit left side of abdominal wall laterally, mild tenderness ext - right leg is smaller than left leg due to prior polio; trace edema right ankle/foot; pulses 2+ b/l skin - cellulitis extending from top of right foot to distal 1/3 of bauer; warm erythema; nontender; no abscess or ulceration musculo - right ankle is fused but palpation of right foot and right ankle does not cause pain Results & Data Results & Data Vital Signs (Past 12 Hours) Vital Signs Temp Pulse Resp BP Pulse Ox O2 Del Method 08/05/22 11:00 36.4 C L 95 H 16 121/65 96 Room Air 08/05/22 08:30 Room Air 08/05/22 07:17 36.7 C 101 H 18 112/68 97 Room Air 08/05/22 03:30 36.6 C 99 H 20 109/58 L 95 Room Air 08/05/22 00:06 Room Air 08/04/22 23:55 Room Air 08/04/22 23:55 Room Air Laboratory Results Laboratory Results - last 24 hr 08/04/22 08/04/22 08/04/22 17:51 18:00 18:00 WBC RBC Hgb Hct MCV MCH MCHC RDW Std Deviation RDW Coeff of Dinora Plt Count MPV Immature Gran % (Auto) Neut % (Auto) Lymph % (Auto) Finney % (Auto) Eos % (Auto) Baso % (Auto) Reticulocyte % (Auto) Neut # (Auto) Lymph # (Auto) Finney # (Auto) Eos # (Auto) Baso # (Auto) Reticulocyte # Immature Gran # (Auto) Toxic Granulation Toxic Vacuolation Dohle Bodies Peripher Smr Path Cons ESR 31 H PT INR APTT PTT Ratio Sodium 137 Potassium 3.1 L Chloride 106 Carbon Dioxide 24 Anion Gap 7 BUN 33 H Creatinine 0.70 Est Cr Clr Drug Dosing 78.7 Est GFR ( Amer) 99.7 Est GFR (Non-Af Amer) 86.1 BUN/Creatinine Ratio 47.1 H Glucose 119 H Lactate Calcium 6.8 L Ionized Calcium Magnesium 1.9 Total Bilirubin 0.5 Direct Bilirubin 0.1 AST 35 ALT 26 Alkaline Phosphatase 55 Troponin I High Sens 23.1 H C-Reactive Protein 17.09 H Total Protein 4.8 L Albumin 2.3 L Globulin Albumin/Globulin Ratio Procalcitonin Urine Color Urine Appearance Urine pH Ur Specific Chelsea Urine Protein Urine Glucose (UA) Urine Ketones Urine Blood Urine Nitrite Urine Bilirubin Urine Urobilinogen Ur Leukocyte Esterase Urine WBC (Auto) Urine RBC (Auto) U Hyaline Cast (Auto) U Epithel Cells (Auto) Urine Bacteria (Auto) Random Vancomycin SARS-CoV-2 (PCR) NEGATIVE Influenza Type A (PCR) Negative Influenza Type B (PCR) Negative RSV (RT-PCR) Negative Blood Type Antibody Screen 08/04/22 08/04/22 08/04/22 18:00 18:00 18:00 WBC 1.86 L RBC 2.88 L Hgb 8.7 L Hct 25.3 L MCV 87.8 MCH 30.2 MCHC 34.4 RDW Std Deviation 44.4 RDW Coeff of Dinora 14.0 Plt Count 117 L MPV 10.8 Immature Gran % (Auto) 1.1 Neut % (Auto) 86.0 Lymph % (Auto) 9.1 Finney % (Auto) 1.6 Eos % (Auto) 0.0 Baso % (Auto) 2.2 Reticulocyte % (Auto) Neut # (Auto) 1.60 Lymph # (Auto) 0.17 L Finney # (Auto) 0.03 L Eos # (Auto) 0.00 Baso # (Auto) 0.04 Reticulocyte # Immature Gran # (Auto) 0.02 Toxic Granulation 1+ Toxic Vacuolation 1+ Dohle Bodies 1+ Peripher Smr Path Cons ESR PT Cancelled INR Cancelled APTT Cancelled PTT Ratio Cancelled Sodium Potassium Chloride Carbon Dioxide Anion Gap BUN Creatinine Est Cr Clr Drug Dosing Est GFR ( Amer) Est GFR (Non-Af Amer) BUN/Creatinine Ratio Glucose Lactate 1.4 Calcium Ionized Calcium Magnesium Total Bilirubin Direct Bilirubin AST ALT Alkaline Phosphatase Troponin I High Sens C-Reactive Protein Total Protein Albumin Globulin Albumin/Globulin Ratio Procalcitonin Urine Color Urine Appearance Urine pH Ur Specific Chelsea Urine Protein Urine Glucose (UA) Urine Ketones Urine Blood Urine Nitrite Urine Bilirubin Urine Urobilinogen Ur Leukocyte Esterase Urine WBC (Auto) Urine RBC (Auto) U Hyaline Cast (Auto) U Epithel Cells (Auto) Urine Bacteria (Auto) Random Vancomycin SARS-CoV-2 (PCR) Influenza Type A (PCR) Influenza Type B (PCR) RSV (RT-PCR) Blood Type Antibody Screen 08/04/22 08/04/22 08/04/22 18:00 18:36 20:01 WBC RBC Hgb Hct MCV MCH MCHC RDW Std Deviation RDW Coeff of Dinora Plt Count MPV Immature Gran % (Auto) Neut % (Auto) Lymph % (Auto) Finney % (Auto) Eos % (Auto) Baso % (Auto) Reticulocyte % (Auto) Neut # (Auto) Lymph # (Auto) Finney # (Auto) Eos # (Auto) Baso # (Auto) Reticulocyte # Immature Gran # (Auto) Toxic Granulation Toxic Vacuolation Dohle Bodies Peripher Smr Path Cons ESR PT 12.7 H INR 1.2 H APTT 31.0 PTT Ratio 1.1 Sodium Potassium Chloride Carbon Dioxide Anion Gap BUN Creatinine Est Cr Clr Drug Dosing Est GFR ( Amer) Est GFR (Non-Af Amer) BUN/Creatinine Ratio Glucose Lactate Calcium Ionized Calcium Magnesium Total Bilirubin Direct Bilirubin AST ALT Alkaline Phosphatase Troponin I High Sens C-Reactive Protein Total Protein Albumin Globulin Albumin/Globulin Ratio Procalcitonin 1.19 H Urine Color Urine Appearance Urine pH Ur Specific [place] Urine Protein Urine Glucose (UA) Urine Ketones Urine Blood Urine Nitrite Urine Bilirubin Urine Urobilinogen Ur Leukocyte Esterase Urine WBC (Auto) Urine RBC (Auto) U Hyaline Cast (Auto) U Epithel Cells (Auto) Urine Bacteria (Auto) Random Vancomycin SARS-CoV-2 (PCR) Influenza Type A (PCR) Influenza Type B (PCR) RSV (RT-PCR) Blood Type A Positive Antibody Screen NEGATIVE 08/04/22 08/05/22 08/05/22 23:57 06:08 06:08 WBC 1.52 L RBC 3.06 L Hgb 9.1 L Hct 26.8 L MCV 87.6 MCH 29.7 MCHC 34.0 RDW Std Deviation 44.1 RDW Coeff of Dinora 14.0 Plt Count 101 L MPV 10.5 Immature Gran % (Auto) 2.6 Neut % (Auto) 75.6 Lymph % (Auto) 14.5 Finney % (Auto) 5.3 Eos % (Auto) 0.0 Baso % (Auto) 2.0 Reticulocyte % (Auto) 0.4 L Neut # (Auto) 1.15 L Lymph # (Auto) 0.22 L Finney # (Auto) 0.08 L Eos # (Auto) 0.00 Baso # (Auto) 0.03 Reticulocyte # 0.01 L Immature Gran # (Auto) 0.04 Toxic Granulation 1+ Toxic Vacuolation Dohle Bodies 1+ Peripher Smr Path Cons ESR PT INR APTT PTT Ratio Sodium Potassium Chloride Carbon Dioxide Anion Gap BUN Creatinine Est Cr Clr Drug Dosing Est GFR ( Amer) Est GFR (Non-Af Amer) BUN/Creatinine Ratio Glucose Lactate Calcium Ionized Calcium Magnesium Total Bilirubin Direct Bilirubin AST ALT Alkaline Phosphatase Troponin I High Sens C-Reactive Protein Total Protein Albumin Globulin Albumin/Globulin Ratio Procalcitonin Urine Color Dark Yellow Urine Appearance Clear Urine pH 5.5 Ur Specific Chelsea 1.031 H Urine Protein 1+ H Urine Glucose (UA) Negative Urine Ketones 1+ H Urine Blood Negative Urine Nitrite Negative Urine Bilirubin Negative Urine Urobilinogen Negative Ur Leukocyte Esterase Trace H Urine WBC (Auto) 1-5 Urine RBC (Auto) 5-10 H U Hyaline Cast (Auto) 5-10 H U Epithel Cells (Auto) 10-20 H Urine Bacteria (Auto) Negative Random Vancomycin 13.7 SARS-CoV-2 (PCR) Influenza Type A (PCR) Influenza Type B (PCR) RSV (RT-PCR) Blood Type Antibody Screen 08/05/22 08/05/22 08/05/22 06:08 06:08 06:08 WBC RBC Hgb Hct MCV MCH MCHC RDW Std Deviation RDW Coeff of Dinora Plt Count MPV Immature Gran % (Auto) Neut % (Auto) Lymph % (Auto) Finney % (Auto) Eos % (Auto) Baso % (Auto) Reticulocyte % (Auto) Neut # (Auto) Lymph # (Auto) Finney # (Auto) Eos # (Auto) Baso # (Auto) Reticulocyte # Immature Gran # (Auto) Toxic Granulation Toxic Vacuolation Dohle Bodies Peripher Smr Path Cons ESR PT 12.9 H INR 1.2 H APTT PTT Ratio Sodium 136 Potassium 3.8 D Chloride 107 Carbon Dioxide 23 Anion Gap 6 BUN 30 H Creatinine 0.76 Est Cr Clr Drug Dosing 72.9 Est GFR ( Amer) 96.4 Est GFR (Non-Af Amer) 83.2 BUN/Creatinine Ratio 39.5 H Glucose 112 H Lactate Calcium 6.9 L Ionized Calcium 1.08 L Magnesium 2.1 Total Bilirubin 0.5 Direct Bilirubin AST 39 ALT 26 Alkaline Phosphatase 55 Troponin I High Sens 25.8 H C-Reactive Protein Total Protein 4.7 L Albumin 2.3 L Globulin 2.4 L Albumin/Globulin Ratio 1.0 Procalcitonin Urine Color Urine Appearance Urine pH Ur Specific [place] Urine Protein Urine Glucose (UA) Urine Ketones Urine Blood Urine Nitrite Urine Bilirubin Urine Urobilinogen Ur Leukocyte Esterase Urine WBC (Auto) Urine RBC (Auto) U Hyaline Cast (Auto) U Epithel Cells (Auto) Urine Bacteria (Auto) Random Vancomycin SARS-CoV-2 (PCR) Influenza Type A (PCR) Influenza Type B (PCR) RSV (RT-PCR) Blood Type Antibody Screen PG Care Time/CCT Total # of Minutes Spent Total Time Spent with Patient: Total time spent is greater than 50% in coordination of care (as documented) at patient's floor/unit and/or counseling patient: Coding Level of Care Code 20935 SUB INP/OBS CARE 3/50MIN Diagnoses Cellulitis of right leg L03.115 Antineoplastic chemotherapy induced pancytopenia D61.810; T45.1X5A Neutropenia D70.9 Adenocarcinoma carcinomatosis C80.0 Hypothyroidism E03.9 Post-polio syndrome G14 Candidiasis of mouth and esophagus B37.81; B37.0 History of DVT (deep vein thrombosis) Z86.718 Severe protein-calorie malnutrition E43 Hypocalcemia E83.51 DVT prophylaxis Z29.9
[2022-08-05] MEDS: FAMOTIDINE 20 MG in SYRINGE 3 ML IV SCH ×2 (12:20→20:49)
[2022-08-05] MEDS: NYSTATIN SUSP 500,000 U/5 ML UDC PO SCH ×3 (12:20→21:06)
[2022-08-05] MEDS: NSS + 20MEQ KCL 20 MEQ/1,000 ML BAG IV SCH (12:20)
--- NOTE | 2022-08-05 14:12 | XRay Report ---
ABDOMEN 2 VIEWS CLINICAL HISTORY: Carcinomatosis. Abdominal distention. FINDINGS: Supine and erect abdominal radiographs are correlated with abdominal CT dated 06/10/2022. Ro ture material projects over the lower abdomen and pelvis. There is nonspecific gaseous distention of the colon. There is no radiographic evidence of high-grade bowel obstruction. No intraperitoneal free air is seen on the upright view. There are no abnormal abdominal calcifications. Phleboliths are see n in the pelvis. The skeletal structures are osteopenic and appear intact. There is lumbosacral spond ylosis. A left hip arthroplasty is in place. IMPRESSION: 1. There is nonspecific gaseous distention of the colon with no radiographic evidence of high-grade b owel obstruction. 2. No intraperitoneal free air is seen. Electronically signed by: Young Sinha M.D. 08/05/2022 2:10 PM
--- NOTE | 2022-08-05 19:56 | Billing Data ---
Date of Service August 05, 2022 Coding Level of Care Code 14518 INT INP/OBS CARE
[2022-08-05] MEDS: FIRST - Mouthwash BLM 119 ML PO SCH (21:06)
[2022-08-06] MEDS: NSS + 20MEQ KCL 20 MEQ/1,000 ML BAG IV SCH
[2022-08-06] MEDS: CEFEPIME 2,000 MG in SYRINGE 0 ML IV SCH (06:04)
[2022-08-06] MEDS: LEVOTHYROXINE SODIUM 100 MCG TABLET PO SCH (06:04)
[2022-08-06] MEDS ORDERED: VANCOMYCIN LEVEL SCH (07:30)
[2022-08-06] MEDS: NYSTATIN SUSP 500,000 U/5 ML UDC PO SCH ×4 (07:56→20:19)
[2022-08-06] MEDS: FIRST - Mouthwash BLM 119 ML PO SCH ×4 (07:57→20:19)
[2022-08-06] MEDS: FAMOTIDINE 20 MG in SYRINGE 3 ML IV SCH (08:04)
[2022-08-06 08:47] LABS: BUN Creatinine Ratio 33.8 (10-20); Calcium 6.4 mg/dl (8.5-10.1); Est GFR (African American) 100.9 ml/min; Est GFR (Non-African American) 87.1 ml/min; Potassium 4.4 mmol/L (3.5-5.1)
[2022-08-06] MEDS: ENOXAPARIN INJ 40 MG/0.4 ML SYR SQ SCH (08:49)
[2022-08-06] MEDS ORDERED: STAT IV STA (08:54)
[2022-08-06] MEDS: VANCOMYCIN HCL 750 MG in SODIUM CHLORIDE 0.9% 250 ML IV SCH (08:55)
[2022-08-06 08:56] LABS: Hematocrit (blood only) 27.7 % (42.0-52.0); Hemoglobin 9.2 g/dl (14.0-18.0); Mean Corpuscular Hemoglobin 30.1 pg (25.0-34.0); Mean Corpuscular Hgb Conc 33.2 g/dL (32.0-36.0); Mean Corpuscular Volume 90.5 fL (80.0-100.0); Mean Platelet Volume 10.9 fL (9.4-12.4); Platelet Count 109 K/uL (130-400); RDW Coefficient of Variation 14.3 % (11.5-14.5); RDW Standard Deviation 46.4 fL (36.4-46.3); Red Blood Count 3.06 M/uL (4.70-6.10); White Blood Count 2.73 K/ul (4.8-10.8)
[2022-08-06] MEDS ORDERED: CALCIUM GLUCONATE 10% 1,000 MG in DEXTROSE 5% 50 ML IV ONE (09:00)
[2022-08-06 09:17] LABS: Basophils # (auto) 0.03 K/uL (0-0.2); Basophils % (auto) 1.1 %; Dohle Bodies 1+; Eosinophils # (auto) 0.01 K/uL (0-0.50); Eosinophils % (auto) 0.4 %; Giant Platelets 1+; Immature Granulocytes # (auto) 0.17 K/uL (0.01-0.20); Immature Granulocytes % (auto) 6.2 %; Lymphocytes # (auto) 0.46 K/uL (1.2-3.4); Lymphocytes % (auto) 16.8 %; Monocytes # (auto) 0.37 K/uL (0.11-0.59); Monocytes % (auto) 13.6 %; Neutrophils # (auto) 1.69 K/uL (1.40-6.50); Neutrophils % (auto) 61.9 %; Toxic Granulation 1+
[2022-08-06] MEDS: PANTOprazole 40 MG TAB PO SCH (10:12)
[2022-08-06] MEDS: CALCITRIOL 0.25 MCG CAPSULE PO SCH (10:12)
[2022-08-06] MEDS ORDERED: VANCOMYCIN HCL 750 MG in SODIUM CHLORIDE 0.9% 250 ML IV SCH (14:45)
--- NOTE | 2022-08-06 14:49 | Pharmacy Report ---
Pharmacy PK ABX Note - Date of Service August 06, 2022 - Assessment and Plan Assessment 87 year old M receiving Vancomycin for treatment of Cellulitis. Blood cultures show no growth to date. Day #3 of antimicrobial therapy. Plan Vancomycin * Loading dose: 2750 mg (38 mg/kg) IV x 1 given on 08/04/22 evening. * Maintenance dose: 750 mg (10.1 mg/kg) IV every 12 hours was started yesterday morning after random level in AM resulted in 13.7 mcg/ml. * Trough Vanco level obtained today was 12.5 mcg/ml before dose at 8 am. This would give a AUC/CAROLYNN of 370 mg/L.hr which is below goal of 400-600 mg/L.hr. * Vancomycin dosing increased to 1000 mg IV q12h starting today at 16:00. * Regimen is predicted to achieve target AUC/CAROLYNN of 400-600 mg/L.hr * If Vancomycin is continued beyond tomorrow then will get a level to ensure adequate dosing. Pharmacy will continue to follow and will adjust dose/frequency as necessary. Thank you. Pharmacy has transitioned to AUC monitoring for vancomycin. AUC/CAROLYNN is the preferred PK/PD target and is associated with decreased risk of nephrotoxicity compared to traditional trough targets.
[2022-08-06] MEDS: VANCOMYCIN HCL 1,000 MG in SODIUM CHLORIDE 0.9% 250 ML IV SCH (16:12)
[2022-08-06] MEDS ORDERED: ONDANSETRON INJ 2 MG/ML 2 ML VIAL IV STA (17:19)
[2022-08-06] MEDS: SODIUM CHLORIDE 0.9% 1000ML 1,000 ML IV SCH (17:48)
[2022-08-06] MEDS: CALCIUM CARBONATE 500 MG CHEWABLE TAB PO SCH (20:19)
[2022-08-06] MEDS: SUCRALFATE 1 GM/10 ML UDC PO SCH (20:19)
--- NOTE | 2022-08-06 20:49 | Hospitalist Progress Note ---
Date of Service August 06, 2022 Assessment & Plan (1) Cellulitis of right leg: Plan: ongoing but improved. stop cefepime; continue vancomycin. blood cultures thus far negative. (2) Antineoplastic chemotherapy induced pancytopenia: Plan: cell lines remain low but acceptable. neutropenia improved. cbc w/ diff in am. (3) Neutropenia: Plan: ANC is>1500 today repeat CBC with diff in am. 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 follows with Dr Arroyo, [facility]. Recently initiated gemcitabine and abraxane. last chemo was 07/31/22. now with #2, #3. cbc with diff in am. no evidence of any SBP (does have ascites on last CT) on exam. 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 (7) Candidiasis of mouth and esophagus: Plan: nystatin swish - 5cc po QID can also use magic mouthwash qid swish/spit for discomfort - appears he has a component of mucositis as well (8) History of DVT (deep vein thrombosis): Plan: 1970s by report while here - lovenox 40mg daily for DVT Proph (9) Severe protein-calorie malnutrition: Plan: 15 pounds of weight loss - 2nd to stage 4 cancer - over the last 2 months boost, MVI, etc (10) Hypocalcemia: Plan: still low recent ionized level was low check 25-OH vit D level am check phos level am add calcitriol 0.25mcg daily add calcium carbonate 500mg BID gave an additional 1gm of calcium gluconate IV today patient with muscle spasms of legs which could be from low calcium (11) DVT prophylaxis: Plan: lovenox 40mg daily Plan updated extensively by phone yesterday evening PT, OT evals -- PT recommended 24/7 care at home with first floor set up; OT was declined by patient today speech eval appreciated Admission and Anticipated Discharge Date Admission Date: August 04, 2022 Subjective patient c/o weakness, fatigue, poor appetite - just overall feeling poorly denies pain in any location has not had any vomiting no diarrhea - in fact no stool since admission no fevers tele overnight - NSR with PACs, PVCs Review of Systems Review of Systems: gen - weak, tired, fatigued, appetite not robust; no fevers or chills cv - no orthopnea pulm - no cough GI - no pain; ongoing bloating Physical Exam Physical Exam: gen - weak, fatigued, frail appearing mouth - MM dry; thrush & mucositis of oral cavity neck - no JVD heart - tachy, s1 s2, no murmur lungs - CTA b/l; mildly decreased BS bases abd - distended, BS+, tumor deposit left side of abdominal wall laterally at least 4-5cm in diameter, NT today ext - right leg is smaller than left leg due to prior polio; trace edema right ankle/foot; pulses 2+ b/l skin - cellulitis extending from top of right foot to distal 1/3 of bauer; erythema is retreating from the previously placed demarkation lines; erythema not as intensely red today; no tenderness any locations musculo - right ankle is fused but again palpation of right foot and right ankle does not cause pain Results & Data Results & Data Vital Signs (Past 12 Hours) Vital Signs Temp Pulse Pulse Resp BP Pulse Ox O2 Del Method 08/06/22 19:42 36.3 C L 111 H 16 139/70 99 Room Air 08/06/22 16:50 105 H 08/06/22 15:26 36.3 C L 94 H 18 117/64 95 Room Air 08/06/22 10:59 36.3 C L 97 H 18 119/68 96 Room Air 08/06/22 09:43 Room Air Laboratory Results Laboratory Results - last 24 hr 08/06/22 08/06/22 08/06/22 07:59 07:59 07:59 WBC 2.73 L RBC 3.06 L Hgb 9.2 L Hct 27.7 L MCV 90.5 MCH 30.1 MCHC 33.2 RDW Std Deviation 46.4 H RDW Coeff of Dinora 14.3 Plt Count 109 L MPV 10.9 Immature Gran % (Auto) 6.2 Neut % (Auto) 61.9 Lymph % (Auto) 16.8 [place] % (Auto) 13.6 Eos % (Auto) 0.4 Baso % (Auto) 1.1 Neut # (Auto) 1.69 Lymph # (Auto) 0.46 L [place] # (Auto) 0.37 Eos # (Auto) 0.01 Baso # (Auto) 0.03 Immature Gran # (Auto) 0.17 Toxic Granulation 1+ Dohle Bodies 1+ Giant Platelets 1+ Sodium 138 Potassium 4.4 Chloride 113 H Carbon Dioxide 22 Anion Gap 3 BUN 23 Creatinine 0.68 Est Cr Clr Drug Dosing 82.0 Est GFR ( Amer) 100.9 Est GFR (Non-Af Amer) 87.1 BUN/Creatinine Ratio 33.8 H Glucose 125 H Calcium 6.4 L Folate Random Vancomycin 12.5 08/06/22 07:59 WBC RBC Hgb Hct MCV MCH MCHC RDW Std Deviation RDW Coeff of Dinora Plt Count MPV Immature Gran % (Auto) Neut % (Auto) Lymph % (Auto) [place] % (Auto) Eos % (Auto) Baso % (Auto) Neut # (Auto) Lymph # (Auto) [place] # (Auto) Eos # (Auto) Baso # (Auto) Immature Gran # (Auto) Toxic Granulation Dohle Bodies Giant Platelets Sodium Potassium Chloride Carbon Dioxide Anion Gap BUN Creatinine Est Cr Clr Drug Dosing Est GFR ( Amer) Est GFR (Non-Af Amer) BUN/Creatinine Ratio Glucose Calcium Folate 13.69 Random Vancomycin PG Care Time/CCT Total # of Minutes Spent Total Time Spent with Patient: Total time spent is greater than 50% in coordination of care (as documented) at patient's floor/unit and/or counseling patient: Coding Level of Care Code 77952 SUB INP/OBS CARE 2/35MIN Diagnoses Cellulitis of right leg L03.115 Antineoplastic chemotherapy induced pancytopenia D61.810; T45.1X5A Neutropenia D70.9 Adenocarcinoma carcinomatosis C80.0 Hypothyroidism E03.9 Post-polio syndrome G14 Candidiasis of mouth and esophagus B37.81; B37.0 History of DVT (deep vein thrombosis) Z86.718 Severe protein-calorie malnutrition E43 Hypocalcemia E83.51 DVT prophylaxis Z29.9
[2022-08-07] MEDS: VANCOMYCIN HCL 1,000 MG in SODIUM CHLORIDE 0.9% 250 ML IV SCH ×2 (04:56→17:03)
[2022-08-07] MEDS: SODIUM CHLORIDE 0.9% 1000ML 1,000 ML IV SCH ×2 (05:48→20:11)
[2022-08-07] MEDS: LEVOTHYROXINE SODIUM 100 MCG TABLET PO SCH (05:48)
--- NOTE | 2022-08-07 05:51 | Electrocardiogram Report ---
Test Reason : Blood Pressure : / mmHG Vent. Rate : 110 BPM Atrial Rate : 104 BPM P-R Int : 170 ms QRS Dur : 062 ms QT Int : 392 ms P-R-T Axes : 084 053 045 degrees QTc Int : 531 ms Poor data quality, interpretation may be adversely affected Probable Sinus tachycardia Premature atrial complexes Premature ventricular complexes Prolonged QT Low voltage QRS When compared with ECG of 16-JUN-2022 10:04, Premature atrial complexes are now Present Confirmed by Osvaldo Perkins ([id number]) on 08/07/2022 5:50:42 AM Referred By: REFERRED SELF Confirmed By:Osvaldo Perkins
[2022-08-07 08:54] LABS: BUN Creatinine Ratio 31.7 (10-20); Calcium 6.3 mg/dl (8.5-10.1); Creatinine Clr Calc Pharmacy 88.5 ml/min; Est GFR (African American) 104.1 ml/min; Est GFR (Non-African American) 89.9 ml/min; Potassium 3.6 mmol/L (3.5-5.1)
[2022-08-07 09:01] LABS: Phosphorus 1.4 mg/dl (2.5-4.9)
[2022-08-07 09:05] LABS: Basophils # (auto) 0.03 K/uL (0-0.2); Basophils % (auto) 0.8 %; Dohle Bodies 1+; Eosinophils # (auto) 0.01 K/uL (0-0.50); Eosinophils % (auto) 0.3 %; Hematocrit (blood only) 27.1 % (42.0-52.0); Hemoglobin 9.1 g/dl (14.0-18.0); Immature Granulocytes % (auto) 7.6 %; Lymphocytes # (auto) 0.49 K/uL (1.2-3.4); Lymphocytes % (auto) 12.5 %; Mean Corpuscular Hemoglobin 29.8 pg (25.0-34.0); Mean Corpuscular Hgb Conc 33.6 g/dL (32.0-36.0); Mean Corpuscular Volume 88.9 fL (80.0-100.0); Monocytes # (auto) 0.65 K/uL (0.11-0.59); Monocytes % (auto) 16.5 %; Neutrophils # (auto) 2.45 K/uL (1.40-6.50); Neutrophils % (auto) 62.3 %; Platelet Count 99 K/uL (130-400); RDW Coefficient of Variation 14.4 % (11.5-14.5); RDW Standard Deviation 45.9 fL (36.4-46.3); Red Blood Count 3.05 M/uL (4.70-6.10); Toxic Granulation 2+; White Blood Count 3.93 K/ul (4.8-10.8)
[2022-08-07] MEDS ORDERED: POTASSIUM PHOS 3 MMOL/1 ML INFUSION IV STA (09:36)
[2022-08-07] MEDS ORDERED: STAT IV STA (09:37)
[2022-08-07] MEDS ORDERED: CALCIUM GLUCONATE 10% 1,000 MG in DEXTROSE 5% 50 ML IV ONE (09:37)
[2022-08-07] MEDS ORDERED: POTASSIUM PHOSPHATE 30 MMOL in SODIUM CHLORIDE 0.9% 500 ML IV ONE (09:45)
[2022-08-07] MEDS: NYSTATIN SUSP 500,000 U/5 ML UDC PO SCH ×4 (09:48→20:56)
[2022-08-07] MEDS: CEROVITE ADV FORMULA TAB PO SCH (09:48)
[2022-08-07] MEDS: PANTOprazole 40 MG TAB PO SCH (09:48)
[2022-08-07] MEDS: FIRST - Mouthwash BLM 119 ML PO SCH ×4 (09:48→20:56)
[2022-08-07] MEDS: SUCRALFATE 1 GM/10 ML UDC PO SCH ×4 (09:48→20:56)
[2022-08-07] MEDS: CALCIUM CARBONATE 500 MG CHEWABLE TAB PO SCH ×2 (09:48→20:53)
[2022-08-07] MEDS: ENOXAPARIN INJ 40 MG/0.4 ML SYR SQ SCH (09:49)
[2022-08-07] MEDS: CHOLECALCIFEROL 5,000 UNITS 125 MCG TAB PO SCH (10:24)
--- NOTE | 2022-08-07 17:56 | XRay Report ---
ABDOMEN 2 VIEWS HISTORY: colonic ileus? abd distension COMPARISON: Abdominal series 08/05/2022. FINDINGS: Partially visualized left Port-A-Cath terminates at the expected location of the proximal S VC. No pneumoperitoneum. No pneumatosis. The left hip prosthesis. Suture material in the deep pelvis again noted. No dilated loops of small bowel to suggest a small bowel obstruction. Mildly dilated gas and stool-filled colon. This has slightly improved. Moderate to severe fecal retention again noted. IMPRESSION: 1. Mild distention of the colon which has slightly improved. 2. Moderate to severe fecal retention. ACT 112: Negative or not required by law. Electronically signed by: Nicolas Aggarwal M.D. 08/07/2022 5:54 PM
[2022-08-07] MEDS ORDERED: bisacodyL 5 MG TABEC PO ONE (18:11)
[2022-08-07] MEDS: CALCITRIOL 0.25 MCG CAPSULE PO SCH (19:04)
--- NOTE | 2022-08-07 19:44 | Hospitalist Progress Note ---
Date of Service August 07, 2022 Assessment & Plan (1) Cellulitis of right leg: Plan: continues to improved. blood cultures remain negative. cont IV vancomycin at least 1 more day. renal function remains stable. (2) Antineoplastic chemotherapy induced pancytopenia: Plan: cell lines remain low but acceptable. neutropenia resolved. cbc w/ diff in am. no transfusional support needed at this time. should be approaching kelly this weekend with cell counts. (3) Neutropenia: Plan: ANC remains >1500. repeat CBC with diff in am. 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 follows with Dr Arroyo, [facility]. Recently initiated gemcitabine and abraxane. last chemo was 07/31/22. cbc with diff in am. no evidence of any SBP (does have ascites on last CT) on exam - he is bloated/distended but no pain or peritoneal signs. see below re: colonic ileus. 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 (7) Candidiasis of mouth and esophagus: Plan: nystatin swish - 5cc po QID can also use magic mouthwash qid swish/spit for discomfort from mucositis (8) History of DVT (deep vein thrombosis): Plan: 1970s by report while here - lovenox 40mg daily for DVT Proph (9) Severe protein-calorie malnutrition: Plan: 15 pounds of weight loss - 2nd to stage 4 cancer - over the last 2 months boost, MVI, etc (10) Hypocalcemia: Plan: still low recent ionized level was low 25-OH vit D level low at 19 - start vitamin D 5000 IU daily phos is low - replace cont calcium carbonate 500mg BID - may need to increase to 1gm BID give additional 1gm of calcium gluconate IV again today patient with muscle spasms of legs which could be from low calcium recheck phos, Ica level, and PTH in am hypocalcemia 2nd to vit D def? chemo therapy induced (Gemcitabine or Abraxane)? other? (11) DVT prophylaxis: Plan: lovenox 40mg daily (12) Vitamin D deficiency: Plan: level = 18 vit D 5000 IU daily (13) Hypophosphatemia: Plan: K-phos 30mmole IV x 1 check PTH level am (14) Paralytic ileus of large intestine: Plan: multifactorial - electrolyte disturbances, copious amounts of imodium at home pre-hospital, immobility, etc. replace lytes mobilize as tolerated no further anti-diarrheals of course try dulcolax PO x 1 Plan updated extensively at bedside today PT, OT susan -- PT recommended 24/7 care at home with first floor set up if cannot provide 24/7 care would need SNF placement or similar speech eval appreciated Admission and Anticipated Discharge Date Admission Date: August 04, 2022 Subjective patient states that for 3 nights he has been "hallucinating, almost like I'm delusional" this is the first time he has mentioned this during bedside visits he admits to sleeping very poorly appetite remains poor he is having heartburn at times he feels very full in his abdomen passing little flatus had vomiting yesterday, none today no pain in any location, however, including the abdomen denies dyspnea he is very weak at bedside during the visit tele - 23 minute long run of narrow-complex tachycardia about midnight; othe rwise NSR Review of Systems Review of Systems: gen - no fevers or chills; very weak, maybe slightly better than yesterday cv - no chest pain pulm - no dyspnea GI - bloating/distended, some nausea, emesis x 1 yesterday pm - voiding ok musculo - no right ankle or distal right leg pain Physical Exam Physical Exam: gen - weak, fatigued, frail appearing - looks maybe slightly better than yesterday mouth - MM dry; severe mucositis +/- thrush of oral cavity neck - no JVD heart - RRR, s1 s2, no murmur lungs - CTA b/l; mildly decreased BS bases abd - distended - a little worse than yesterday, BS+ but decreased, tumor deposit left side of abdominal wall laterally at least 4-5cm in diameter - no change, Nontender ext - right leg is smaller than left leg due to prior polio; trace edema right ankle/foot; pulses 2+ b/l skin - cellulitis extending from top of right foot to distal 1/3 of bauer; erythema continues to retreat from the previously placed demarkation lines; erythema is now light pink; no warmth; nontender musculo - palpation of right foot and right ankle does not cause pain Results & Data Results & Data Vital Signs (Past 12 Hours) Vital Signs Temp Pulse Pulse Resp BP BP Pulse Ox 08/07/22 16:09 95 H 08/07/22 15:14 36.5 C 107 H 18 115/66 96 08/07/22 11:14 36.8 C 86 18 112/60 95 08/07/22 08:16 66 08/07/22 07:55 36.8 C 90 16 115/61 94 O2 Del Method 08/07/22 16:09 08/07/22 15:14 Room Air 08/07/22 11:14 Room Air 08/07/22 08:16 08/07/22 07:55 Room Air Laboratory Results Laboratory Results - last 24 hr 08/07/22 08/07/22 08/07/22 08:06 08:06 08:06 WBC 3.93 L RBC 3.05 L Hgb 9.1 L Hct 27.1 L MCV 88.9 MCH 29.8 MCHC 33.6 RDW Std Deviation 45.9 RDW Coeff of Dinora 14.4 Plt Count 99 L MPV 11.0 Immature Gran % (Auto) 7.6 Neut % (Auto) 62.3 Lymph % (Auto) 12.5 [place] % (Auto) 16.5 Eos % (Auto) 0.3 Baso % (Auto) 0.8 Neut # (Auto) 2.45 Lymph # (Auto) 0.49 L [place] # (Auto) 0.65 H Eos # (Auto) 0.01 Baso # (Auto) 0.03 Immature Gran # (Auto) 0.30 H Toxic Granulation 2+ Dohle Bodies 1+ Sodium 140 Potassium 3.6 Chloride 113 H Carbon Dioxide 21 Anion Gap 6 BUN 20 Creatinine 0.63 Est Cr Clr Drug Dosing 88.5 Est GFR ( Amer) 104.1 Est GFR (Non-Af Amer) 89.9 BUN/Creatinine Ratio 31.7 H Glucose 102 H Calcium 6.3 L Phosphorus 1.4 L* 25-OH Vitamin D Total 19.0 L Diagnostic Findings Abdomen X-Ray 08/07/22 16:54 ABDOMEN 2 VIEWS HISTORY: colonic ileus? abd distension COMPARISON: Abdominal series 08/05/2022. FINDINGS: Partially visualized left Port-A-Cath terminates at the expected location of the proximal SVC. No pneumoperitoneum. No pneumatosis. The left hip prosthesis. Suture material in the deep pelvis again noted. No dilated loops of small bowel to suggest a small bowel obstruction. Mildly dilated gas and stool- filled colon. This has slightly improved. Moderate to severe fecal retention again noted. IMPRESSION: 1. Mild distention of the colon which has slightly improved. 2. Moderate to severe fecal retention. ACT 112: Negative or not required by law. Electronically signed by: Nicolas Aggarwal M.D. 08/07/2022 5:54 PM PG Care Time/CCT Total # of Minutes Spent Total Time Spent with Patient: Total time spent is greater than 50% in coordination of care (as documented) at patient's floor/unit and/or counseling patient: Coding Level of Care Code 32593 SUB INP/OBS CARE 3/50MIN Diagnoses Cellulitis of right leg L03.115 Antineoplastic chemotherapy induced pancytopenia D61.810; T45.1X5A Neutropenia D70.9 Adenocarcinoma carcinomatosis C80.0 Hypothyroidism E03.9 Post-polio syndrome G14 Candidiasis of mouth and esophagus B37.81; B37.0 History of DVT (deep vein thrombosis) Z86.718 Severe protein-calorie malnutrition E43 Hypocalcemia E83.51 DVT prophylaxis Z29.9 Vitamin D deficiency E55.9 Hypophosphatemia E83.39 Paralytic ileus of large intestine K56.0
[2022-08-07] MEDS: MELATONIN 3 MG TAB PO SCH (20:53)
[2022-08-08] MEDS: ALBUMIN 25% 100 mL 25 GM/100 ML VIAL IV SCH ×2 (00:27→02:15)
[2022-08-08] MEDS: VANCOMYCIN HCL 1,000 MG in SODIUM CHLORIDE 0.9% 250 ML IV SCH ×2 (04:27→16:41)
[2022-08-08] MEDS ORDERED: ACETAMINOPHEN 1,000 MG/100 ML VIAL IV PRN (05:05)
[2022-08-08] MEDS: LEVOTHYROXINE SODIUM 100 MCG TABLET PO SCH (05:23)
[2022-08-08 07:16] LABS: Calcium 6.4 mg/dl (8.5-10.1); Creatinine Clr Calc Pharmacy 80.8 ml/min; Est GFR (African American) 100.3 ml/min; Est GFR (Non-African American) 86.6 ml/min; Potassium 3.6 mmol/L (3.5-5.1)
[2022-08-08 07:18] LABS: Hematocrit (blood only) 24.1 % (42.0-52.0); Hemoglobin 8.1 g/dl (14.0-18.0); Mean Corpuscular Hemoglobin 30.2 pg (25.0-34.0); Mean Corpuscular Hgb Conc 33.6 g/dL (32.0-36.0); Mean Corpuscular Volume 89.9 fL (80.0-100.0); Mean Platelet Volume 11.1 fL (9.4-12.4); Nucleated RBC # (auto) 0.02 K/uL (0-0.12); Nucleated RBC % (auto) 0.3 %; Platelet Count 108 K/uL (130-400); RDW Coefficient of Variation 14.6 % (11.5-14.5); RDW Standard Deviation 46.6 fL (36.4-46.3); Red Blood Count 2.68 M/uL (4.70-6.10); White Blood Count 6.02 K/ul (4.8-10.8)
[2022-08-08] MEDS ORDERED: STAT IV STA (08:54)
[2022-08-08] MEDS: CHOLECALCIFEROL 5,000 UNITS 125 MCG TAB PO SCH (09:24)
[2022-08-08] MEDS: SUCRALFATE 1 GM/10 ML UDC PO SCH ×4 (09:24→21:58)
[2022-08-08] MEDS: NYSTATIN SUSP 500,000 U/5 ML UDC PO SCH ×4 (09:24→21:58)
[2022-08-08] MEDS: ENOXAPARIN INJ 40 MG/0.4 ML SYR SQ SCH (09:24)
[2022-08-08] MEDS: CALCIUM CARBONATE 500 MG CHEWABLE TAB PO SCH ×2 (09:25→21:58)
[2022-08-08] MEDS: FIRST - Mouthwash BLM 119 ML PO SCH ×4 (09:26→21:59)
[2022-08-08] MEDS: PANTOprazole 40 MG TAB PO SCH (09:26)
[2022-08-08] MEDS: CEROVITE ADV FORMULA TAB PO SCH (09:26)
[2022-08-08] MEDS ORDERED: CALCIUM GLUCONATE 10% 1,000 MG in DEXTROSE 5% 50 ML IV ONE (09:30)
[2022-08-08] MEDS: POT PHOSPHATE MONOBASIC W/ SOD TAB PO SCH ×4 (10:06→21:58)
[2022-08-08] MEDS: SODIUM CHLORIDE 0.9% 1000ML 1,000 ML IV SCH (12:53)
[2022-08-08 15:14] LABS: ANC (manual) 4.88 K/uL (1.4-6.5); Lymphocytes % (manual) 5 %; Metamyelocytes # (manual) 0.18 K/uL (0-0); Metamyelocytes % (manual) 3 %; Monocytes # (manual) 0.42 K/uL (0.11-0.59); Monocytes % (manual) 7 %; Myelocytes # (manual) 0.12 K/uL (0-0); Myelocytes % (manual) 2 %; Neutrophils # (manual) 4.88 K/uL (1.40-6.50); Neutrophils % (manual) 81 %; Promyelocytes # (manual) 0.12 K/uL (0-0); Promyelocytes % (manual) 2 %; RBC Morphology Unremarkable
[2022-08-08 15:19] LABS: Appearance Urine Cloudy (Clear); Bacteria Urine Automated Negative (Negative); Blood Urine 1+ (Negative); Color Urine Dark Yellow; Glucose Urine UA Negative (Negative); Ketones Urine 2+ (Negative); Leukocyte Esterase Urine Negative (Negative); Nitrite Urine Negative (Negative); Protein Urine 1+ (Negative); Specific Gravity Urine 1.034 (1.000-1.030); Urobilinogen Urine Negative (Negative); WBC Urine Automated >30 /hpf (0-5); pH Urine 5.5 (4.5-7.5)
[2022-08-08 15:37] LABS: Bilirubin Urine 1+ (Negative)
[2022-08-08 16:06] LABS: RBC Urine Automated 0-4 /hpf (0-4)
--- NOTE | 2022-08-08 19:43 | Hospitalist Progress Note ---
Date of Service August 08, 2022 Assessment & Plan (1) Cellulitis of right leg: Plan: nearly resolved. can d/c IV vanco. change to PO keflex + doxy in am tomorrow. blood cultures remain negative. (2) SVT (supraventricular tachycardia): Plan: has had 2 nights now of narrow complex tachycardia. first night had about 20 minutes of what appeared to be SVT/AVNRT. last night had about 80-90 minutes of the same rhythm. it does not appear to be a.fib or a.flutter. he is asymptomatic during such. he is not a good candidate for beta afshin therapy as BPs are low-normal most times. if he develops recurrent runs can use vagal maneuvers to break such. check echo in am for completeness. (3) Paralytic ileus of large intestine: Plan: modestly improved overnight +stool and more flatus today than previous multifactorial etiology - electrolyte disturbances, copious amounts of imodium at home pre-hospital, immobility, etc. cannot rule out some effect of his carcinomatosis contributing to such but much less likely. cont to replace lytes and normalize his calcium level mobilize as tolerated place on senna 2 tabs daily as he does have a large amount of stool on x-rays (4) Antineoplastic chemotherapy induced pancytopenia: Plan: cell lines remain acceptable. neutropenia resolved. WBC count now normal. cbc in am for stability. no transfusional support needed at this time. he is likely at the [facility] from recent chemotherapy (given 07/31/22). (5) Neutropenia: Plan: 2nd to recent chemotherapy for stage 4 pancreatic ca -- resolved. ANC and WBC wnl today. (6) Adenocarcinoma carcinomatosis: Plan: stage [address] with Dr Arroyo, [facility]. Recently initiated gemcitabine and abraxane. last chemo was 07/31/22. no evidence of any SBP (does have ascites on last CT) - he is bloated/distended but no pain or peritoneal signs. 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 (9) Candidiasis of mouth and esophagus: Plan: cont nystatin swish - 5cc po QID can also use magic mouthwash qid swish/spit for discomfort from mucositis (10) History of DVT (deep vein thrombosis): Plan: 1970s by report while here - lovenox 40mg daily for DVT Proph (11) Severe protein-calorie malnutrition: Plan: 15 pounds of weight loss - 2nd to stage 4 cancer - over the last 2 months cont boost, MVI, etc offered to advance his diet today but he declined (12) Hypocalcemia: Plan: possibly 2nd to vit D deficiency possibly 2nd to chemo although both chemo agents (gemcitabine & abraxane), per the literature, rarely cause low calcium (there are case reports only) 25-OH vit D level low at 19 - started vitamin D 5000 IU daily phos is low - replacing cont calcium carbonate but increase to 1000mg BID give additional 1gm of calcium gluconate IV again today patient had had intermittent muscle spasms of legs which may be due to the hypocalcemia elevated PTH level fits with vit D deficiency patient does not have bone mets from his cancer thus osteoblastic mets causing low calcium unlikely if calcium fails to correct consider nephrology consultation (13) DVT prophylaxis: Plan: lovenox 40mg daily (14) Vitamin D deficiency: Plan: level = 18 vit D 5000 IU daily (15) Hypophosphatemia: Plan: likely 2nd to vit D deficiency, poor oral intake, etc add K-phos neutral QID recheck phos in 48 hours (16) Acute metabolic encephalopathy: Plan: likely multifactorial - hospital psychosis, infection (cellulitis), etc. if any worsening consider CT head to r/o mets from cancer (17) Urinary retention: Plan: likely 2nd to BPH colonic issues could be contributing as well mcginnis placed Plan updated extensively at bedside once again today based on his current condition he very well may need placement is concerned about his overall weakness, etc further she works outside the home frequently will d/w social work Admission and Anticipated Discharge Date Admission Date: August 04, 2022 Subjective tele overnight - had nearly 1.5 hours of narrow complex tachycardia the rhythm started abruptly, and the rate was about 150 BPM sustained the entire time with little variability the rhythm ultimately stopped abruptly as well, and he returned to NSR flowsheets show his SBP was mildly low night physician was called - albumin infusion was given during the episode he was asleep - thus, no symptoms from such patient states he slept ok but did wake up once and was very confused/disoriented and had visual hallucinations he did have a BM today, and has been passing much more flatus than previous he has had no nausea/emesis except for 1 episode of emesis following taking carafate liquid? some occasional heartburn still very poor appetite but did take broth 2x today does not want diet advanced remains very weak although he was able to get up to the commode today during the visit his was at the bedside she expressed concerns about the ability for him to be at home as they have 2 levels within their home she is also concerned about his weakness we discussed rehab post discharge further, she works at [employer] as a professor and is away from the home at times Review of Systems Review of Systems: gen - no fevers or chills cv - ?orthopnea; no chest pain pulm - denies dyspnea at rest, no significant cough GI - bloating continues, occasional nausea, 1 episode emesis following meds; +stool today - urinary difficulties overnight and today; straight cathed for 500cc of urine last pm; then had retention again today; typically gets up 3x each night at home; often sits for a long time on the toilet to void Physical Exam Physical Exam: gen - looks similar to yesterday; weak, fatigued; strength of voice a little better today mouth - MM more moist today; severe mucositis +/- thrush of oral cavity - especially posterior pharynx - slightly better today neck - no JVD heart - RRR, s1 s2, no murmur lungs - mild rales bases, clear in apices, no wheezing, no increased WOB abd - distension improved today; more soft; tumor deposit left side of abdominal wall laterally at least 4-5cm in diameter - no change; Nontender ext - right leg is smaller than left leg due to prior polio; ongoing trace edema right ankle/foot; pulses 2+ b/l; now with mild edema left foot and arms as well skin - cellulitis of distal right bauer, ankle & dorsum of foot about 80% resolved from prior exams; slight pink skin only; no warmth Results & Data Results & Data Vital Signs (Past 12 Hours) Vital Signs Temp Pulse Pulse Resp BP Pulse Ox O2 Del Method 08/08/22 18:46 73 08/08/22 10:58 36.3 C L 81 16 111/62 96 Room Air 08/08/22 07:50 36.4 C L 92 H 20 112/55 L 95 Room Air Laboratory Results Laboratory Results - last 24 hr 08/08/22 08/08/22 08/08/22 06:07 06:07 06:07 WBC 6.02 RBC 2.68 L Hgb 8.1 L Hct 24.1 L MCV 89.9 MCH 30.2 MCHC 33.6 RDW Std Deviation 46.6 H RDW Coeff of Dinora 14.6 H Plt Count 108 L MPV 11.1 Absolute Nucleated RBC 0.02 Nucleated RBC % (auto) 0.3 Neutrophils % (Manual) 81 Lymphocytes % (Manual) 5 Monocytes % (Manual) 7 Metamyelocytes % (Man) 3 Myelocytes % (Man) 2 Promyelocytes % (Man) 2 Neutrophils # (Manual) 4.88 Total Absolute Neuts 4.88 Lymphocytes # (Manual) 0.30 L Total Abs Lymphocytes 0.30 L Monocytes # (Manual) 0.42 Metamyelocytes # (Man) 0.18 H Myelocytes # (Manual) 0.12 H Promyelocytes # (Man) 0.12 H RBC Morphology Unremarkable Sodium 141 Potassium 3.6 Chloride 115 H Carbon Dioxide 19 L Anion Gap 7 BUN 20 Creatinine 0.69 Est Cr Clr Drug Dosing 80.8 Est GFR ( Amer) 100.3 Est GFR (Non-Af Amer) 86.6 BUN/Creatinine Ratio 29.0 H Glucose 86 Calcium 6.4 L Ionized Calcium 0.99 L Phosphorus 2.0 L PTH Intact Urine Color Urine Appearance Urine pH Ur Specific [place] Urine Protein Urine Glucose (UA) Urine Ketones Urine Blood Urine Nitrite Urine Bilirubin Urine Urobilinogen Ur Leukocyte Esterase Urine WBC (Auto) Urine RBC (Auto) U Hyaline Cast (Auto) U Epithel Cells (Auto) Urine Bacteria (Auto) Urine Yeast 08/08/22 08/08/22 09:15 14:53 WBC RBC Hgb Hct MCV MCH MCHC RDW Std Deviation RDW Coeff of Dinora Plt Count MPV Absolute Nucleated RBC Nucleated RBC % (auto) Neutrophils % (Manual) Lymphocytes % (Manual) Monocytes % (Manual) Metamyelocytes % (Man) Myelocytes % (Man) Promyelocytes % (Man) Neutrophils # (Manual) Total Absolute Neuts Lymphocytes # (Manual) Total Abs Lymphocytes Monocytes # (Manual) Metamyelocytes # (Man) Myelocytes # (Manual) Promyelocytes # (Man) RBC Morphology Sodium Potassium Chloride Carbon Dioxide Anion Gap BUN Creatinine Est Cr Clr Drug Dosing Est GFR ( Amer) Est GFR (Non-Af Amer) BUN/Creatinine Ratio Glucose Calcium Ionized Calcium Phosphorus PTH Intact 223.3 H Urine Color Dark Yellow Urine Appearance Cloudy A Urine pH 5.5 Ur Specific [place] 1.034 H Urine Protein 1+ H Urine Glucose (UA) Negative Urine Ketones 2+ H Urine Blood 1+ H Urine Nitrite Negative Urine Bilirubin 1+ H Urine Urobilinogen Negative Ur Leukocyte Esterase Negative Urine WBC (Auto) >30 H Urine RBC (Auto) 0-4 U Hyaline Cast (Auto) 5-10 H U Epithel Cells (Auto) 10-20 H Urine Bacteria (Auto) Negative Urine Yeast Not Reportable PG Care Time/CCT Total # of Minutes Spent Total Time Spent with Patient: Total time spent is greater than 50% in coordination of care (as documented) at patient's floor/unit and/or counseling patient: Coding Level of Care Code 59811 SUB INP/OBS CARE 3/50MIN Diagnoses Cellulitis of right leg L03.115 SVT (supraventricular tachycardia) I47.1 Paralytic ileus of large intestine K56.0 Antineoplastic chemotherapy induced pancytopenia D61.810; T45.1X5A Neutropenia D70.9 Adenocarcinoma carcinomatosis C80.0 Hypothyroidism E03.9 Post-polio syndrome G14 Candidiasis of mouth and esophagus B37.81; B37.0 History of DVT (deep vein thrombosis) Z86.718 Severe protein-calorie malnutrition E43 Hypocalcemia E83.51 DVT prophylaxis Z29.9 Vitamin D deficiency E55.9 Hypophosphatemia E83.39 Acute metabolic encephalopathy G93.41 Urinary retention R33.9
[2022-08-08] MEDS: MELATONIN 3 MG TAB PO SCH (21:58)
[2022-08-08] MEDS: SENNA 8.6 MG TAB PO SCH (21:58)
[2022-08-08] MEDS ORDERED: FUROSEMIDE INJ 20 MG/2 ML VIAL IV ONE (22:21)
[2022-08-08] MEDS ORDERED: ALBUMIN 25% 100 mL 25 GM/100 ML VIAL IV ONE (22:42)
[2022-08-09] MEDS ORDERED: VANCOMYCIN LEVEL ONE (03:30)
[2022-08-09] MEDS: LEVOTHYROXINE SODIUM 100 MCG TABLET PO SCH (06:39)
[2022-08-09 07:02] LABS: Hematocrit (blood only) 25.4 % (42.0-52.0); Hemoglobin 8.8 g/dl (14.0-18.0); Mean Corpuscular Hemoglobin 30.3 pg (25.0-34.0); Mean Corpuscular Hgb Conc 34.6 g/dL (32.0-36.0); Mean Corpuscular Volume 87.6 fL (80.0-100.0); Nucleated RBC # (auto) 0.02 K/uL (0-0.12); Nucleated RBC % (auto) 0.2 %; Platelet Count 150 K/uL (130-400); RDW Coefficient of Variation 14.8 % (11.5-14.5); RDW Standard Deviation 46.5 fL (36.4-46.3); White Blood Count 8.23 K/ul (4.8-10.8)
[2022-08-09 07:37] LABS: Albumin Globulin Ratio 1.5 (0.9-2); Albumin Level 2.7 gm/dl (3.4-5.0); BUN Creatinine Ratio 27.8 (10-20); Bilirubin,Total 0.6 mg/dl (0.2-1.0); Calcium 6.7 mg/dl (8.5-10.1); Creatinine Clr Calc Pharmacy 77.4 ml/min; Est GFR (African American) 98.6 ml/min; Est GFR (Non-African American) 85.1 ml/min; Globulin 1.8 gm/dl (2.5-4.0); Magnesium 1.9 mg/dl (1.7-2.4); Potassium 3.2 mmol/L (3.5-5.1); Total Protein 4.5 gm/dl (6.0-8.3)
[2022-08-09] MEDS: HEPARIN 100 UNIT/ML 5ML FLUSH FLUSH PRN ×3 (08:04→12:58)
[2022-08-09] MEDS ORDERED: POTASSIUM CHLORIDE CRTAB 20 MEQ TABCR PO STA ×2 (08:38→19:27)
[2022-08-09] MEDS ORDERED: FUROSEMIDE INJ 20 MG/2 ML VIAL IV ONE (09:28)
[2022-08-09] MEDS: cephALEXin 500 MG CAP PO SCH ×3 (09:34→21:05)
[2022-08-09] MEDS: DOXYCYCLINE HYCLATE 100 MG CAP PO SCH ×2 (09:34→21:06)
[2022-08-09] MEDS: FIRST - Mouthwash BLM 119 ML PO SCH ×4 (09:34→21:44)
[2022-08-09] MEDS: CEROVITE ADV FORMULA TAB PO SCH (09:34)
[2022-08-09] MEDS: CHOLECALCIFEROL 5,000 UNITS 125 MCG TAB PO SCH (09:34)
[2022-08-09] MEDS: POT PHOSPHATE MONOBASIC W/ SOD TAB PO SCH ×4 (09:34→21:06)
[2022-08-09] MEDS: NYSTATIN SUSP 500,000 U/5 ML UDC PO SCH ×4 (09:34→21:09)
[2022-08-09] MEDS: SUCRALFATE 1 GM/10 ML UDC PO SCH ×4 (09:34→21:03)
[2022-08-09] MEDS: PANTOprazole 40 MG TAB PO SCH (09:34)
[2022-08-09] MEDS: ENOXAPARIN INJ 40 MG/0.4 ML SYR SQ SCH (09:35)
[2022-08-09] MEDS: CALCIUM CARBONATE 500 MG CHEWABLE TAB PO SCH ×2 (10:21→21:04)
--- NOTE | 2022-08-09 10:29 | XCELERA ---
[id number]
[2022-08-09] MEDS: ONDANSETRON INJ 2 MG/ML 2 ML VIAL IV PRN (12:58)
[2022-08-09] MEDS ORDERED: POTASSIUM CHLORIDE CRTAB 20 MEQ TABCR PO ONE (13:00)
[2022-08-09] MEDS ORDERED: OPTIRAY 350 100ml IV ONE (15:42)
--- NOTE | 2022-08-09 16:00 | CT Scan Report ---
HEAD CT NONCONTRAST CT DOSE: 614.27 mGy.cm HISTORY: stage 4 pancreatic ca; confusion TECHNIQUE: Multiaxial CT images of the head were performed without the use of intravenous contrast. A utomated exposure control was utilized for this study. A dose lowering technique was utilized adheri ng to the principles of ALARA. Comparison: None. Findings: The paranasal sinuses and mastoid air cells are clear. The calvarium and skull base are int act. There is no mass, hematoma, midline shift, acute infarct. There is a 3.4 cm arachnoid cyst withi n the left middle cranial fossa. Prominence of the cerebral extra-axial spaces most pronounced within the right parietal region which measures up to 6 mm in thickness. These are nonspecific and could re present chronic subdural hygromas/hematomas versus volume loss. Impression: 1. No acute infarct or intracranial hemorrhage. 2. No intracranial masses identified. 3. Additional findings as described above. ACT 112: Negative or not required by law. Electronically signed by: Nicolas Aggarwal M.D. 08/09/2022 3:57 PM
--- NOTE | 2022-08-09 16:08 | CT Scan Report ---
ABDOMEN AND PELVIS CT WITH IV CONTRAST CT DOSE: 405.26 mGy.cm HISTORY: History of pancreatic cancer. known carcinomatosis, worsening abdominal distension TECHNIQUE: Multiaxial CT images of the abdomen and pelvis were performed following the use of intrave nous contrast. A dose lowering technique was utilized adhering to the principles of ALARA. COMPARISON STUDY: Abdomen and pelvis CT 06/10/2022. PET/CT 07/09/2022. FINDINGS: Interval development of small to moderate bilateral pleural effusions with bilateral lower lobe densities suggestive of compressive atelectasis. No pneumoperitoneum. No pneumatosis. There is a left hip prosthesis again noted. No suspicious lytic or blastic osseous lesions. There is a small hi atus hernia. The liver, gallbladder, spleen, and adrenal glands unremarkable. Stable bilateral renal hypodense lesions. These favor cysts. Calcified plaque within the normal caliber abdominal aorta. No retroperitoneal or pelvic lymphadenopathy. There is moderate to severe body wall edema. There is a Fo viki catheter within the decompressed bladder. Increase in size in the ill-defined mass within the dis estefani body of the pancreas which measures 2.9 cm. This abuts the left adrenal gland. This results in se liss dilatation of the proximal main pancreatic duct which is slightly progressed. Small to moderate amount of ascites has progressed. This is consistent with progressive metastatic disease. Colonic div erticulosis. No evidence for acute diverticulitis. Questionable thickening of the descending colon an d proximal sigmoid colon is likely due to underdistention and serosal metastatic disease. There is no pericolonic inflammatory change to suggest a colitis at this time. No dilated loops of bowel to sugg est an obstruction. Interval progression of the multiple scattered omental nodules and peritoneal enh ancement/thickening consistent with progressive perineal carcinomatosis. IMPRESSION: 1. Interval progression of the metastatic disease/peritoneal carcinomatosis which includes progressio n of the small to moderate ascites. 2. Interval development of small to moderate bilateral pleural effusions. This could also be due to m etastatic disease. 3. Increase in size in the now 2.9 cm mass within the distal pancreatic body. This accounts for the s evere proximal pancreatic duct dilatation. Therefore. Moderate to severe body wall edema. 5. Additional findings as described above. ACT 112: Negative or not required by law. Electronically signed by: Nicolas Aggarwal M.D. 08/09/2022 4:05 PM
--- NOTE | 2022-08-09 19:23 | Hospitalist Progress Note ---
Date of Service August 09, 2022 Assessment & Plan (1) Cellulitis of right leg: Plan: nearly resolved. s/p IV vanco previously. now day #1 of PO keflex + doxy. blood cultures negative. (2) SVT (supraventricular tachycardia): Plan: has had 2 nights of narrow complex tachycardia. first night had about 20 minutes of what appeared to be SVT/AVNRT. 2nd night had about 80-90 minutes of the same rhythm. it does not appear to be a.fib or a.flutter. he is asymptomatic during such. he is not a good candidate for beta afshin therapy as BPs are low-normal most times. if he develops recurrent runs can use vagal maneuvers to break such. echo today with normal EF and normal valve function. (3) Paralytic ileus of large intestine: Plan: improving multifactorial etiology - electrolyte disturbances, copious amounts of imodium at home pre-hospital, immobility, etc. cannot rule out some effect of his carcinomatosis contributing to such but much less likely. cont to replace lytes and normalize his calcium level mobilize as tolerated cont senna 2 tabs daily as he does have a large amount of stool on imaging since we are performing CT head will also obtain CT a/p to check the status of this problem (4) Antineoplastic chemotherapy induced pancytopenia: Plan: improving/resolving. neutropenia resolved. WBC count now normal. platelets now normal. cbc in am for stability. (5) Neutropenia: Plan: 2nd to recent chemotherapy for stage 4 pancreatic ca -- resolved. (6) Adenocarcinoma carcinomatosis: Plan: stage [address] follows with Dr Arroyo, [facility]. Recently initiated gemcitabine and abraxane. last chemo was 07/31/22. no evidence of any SBP (does have ascites on last CT) - he is bloated/distended but no pain or peritoneal signs. I spoke with Dr Arroyo 08/08 and updated her on his current status will perform CT a/p today due to distension on exam, lack of appetite, recent mcginnis issues, etc. 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 (12) Hypocalcemia: Plan: possibly 2nd to vit D deficiency possibly 2nd to chemo although both chemo agents (gemcitabine & abraxane), per the literature, rarely cause low calcium (there are case reports only) 25-OH vit D level low at 19 - started vitamin D 5000 IU daily phos is low - replacing cont calcium carbonate 1000mg BID patient had had intermittent muscle spasms of legs which may be due to the hypocalcemia elevated PTH level fits with vit D deficiency patient does not have bone mets from his cancer thus osteoblastic mets causing low calcium unlikely if calcium fails to correct consider nephrology consultation (13) DVT prophylaxis: Plan: lovenox 40mg daily (14) Vitamin D deficiency: Plan: level = 18 vit D 5000 IU daily (15) Hypophosphatemia: Plan: likely 2nd to vit D deficiency, poor oral intake, etc added K-phos neutral QID recheck phos in 48 hours (16) Acute metabolic encephalopathy: Plan: likely multifactorial - hospital psychosis, infection (cellulitis), etc. check CT head - r/o mets, ICH, etc. patient with severely distressing visual hallucinations I obtained EKG due to prior prolonged QTc - unfortunately today's EKG continues to show QTc >500 thus, to promote better rest and appetite - start remeron 7.5mg HS cont melatonin 3mg HS (17) Urinary retention: Plan: likely 2nd to BPH colonic issues could be contributing as well mcginnis placed had some issues last pm with the mcginnis now resolved Plan updated extensively at bedside once again today based on his current condition he very well may need placement is concerned about his overall weakness, etc further she works outside the home frequently will d/w social work await PT/OT susan Wednesday to determine disposition Admission and Anticipated Discharge Date Admission Date: August 04, 2022 Subjective patient again slept poorly overnight part of the issue was frequent checks of his mcginnis as well as bladder scans secondly he had visual hallucinations once again - these are quite vivid, and they are distressing to him he is tolerating clear liquids - he's ok with advancing to full liquids; yogurt sounds good to him he c/o scrotal swelling denies dyspnea denies cp denies abd pain although he is quite bloated/distended denies vomiting but did have nausea from one of his meds earlier today orientation questions during the visit -- knew he was in some sort of medical facility; knew the year, month was at bedside during the visit tele - NSR, ectopy, no sustained dysrhythmia overnight Review of Systems Review of Systems: gen - weakness, fatigue continue; anorexia continues although slightly improved from prior cv - no cp pulm - no cough GI - no pain - scrotal edema following multiple mcginnis catheter attempts last pm Physical Exam Physical Exam: gen - looks better again today mouth - MMM; severe mucositis improved; thrush improved neck - no JVD heart - RRR, s1 s2, no murmur lungs - mild rales bases, decreased BS bases, no wheeze, no increased work of breathing abd - distension unchanged from prior exam; tumor deposit left side of abdominal wall laterally at least 4-5cm in diameter - no change; Nontender ext - right leg is smaller than left leg due to prior polio; ongoing trace edema right ankle/foot; pulses 2+ b/l skin - cellulitis of distal right bauer, ankle & dorsum of foot nearly 90-95% resolved Results & Data Results & Data Vital Signs (Past 12 Hours) Vital Signs Temp Pulse Pulse Resp BP Pulse Ox O2 Del Method 08/09/22 19:19 36.3 C L 92 H 18 123/64 96 Room Air 08/09/22 16:51 87 08/09/22 13:57 36.4 C L 88 17 119/51 L 95 Room Air 08/09/22 08:15 94 H 08/09/22 07:57 36.4 C 88 17 123/50 L 95 Room Air Laboratory Results Laboratory Results - last 24 hr 08/09/22 08/09/22 05:47 05:47 WBC 8.23 RBC 2.90 L Hgb 8.8 L Hct 25.4 L MCV 87.6 MCH 30.3 MCHC 34.6 RDW Std Deviation 46.5 H RDW Coeff of Dinora 14.8 H Plt Count 150 MPV 11.0 Absolute Nucleated RBC 0.02 Nucleated RBC % (auto) 0.2 Sodium 142 Potassium 3.2 L Chloride 113 H Carbon Dioxide 21 Anion Gap 8 BUN 20 Creatinine 0.72 Est Cr Clr Drug Dosing 77.4 Est GFR ( Amer) 98.6 Est GFR (Non-Af Amer) 85.1 BUN/Creatinine Ratio 27.8 H Glucose 96 Calcium 6.7 L Magnesium 1.9 Total Bilirubin 0.6 AST 52 H ALT 26 Alkaline Phosphatase 130 H Total Protein 4.5 L Albumin 2.7 L Globulin 1.8 L Albumin/Globulin Ratio 1.5 PG Care Time/CCT Total # of Minutes Spent Total Time Spent with Patient: Total time spent is greater than 50% in coordination of care (as documented) at patient's floor/unit and/or counseling patient: Coding Level of Care Code 46089 SUB INP/OBS CARE 3/50MIN Diagnoses Cellulitis of right leg L03.115 SVT (supraventricular tachycardia) I47.1 Paralytic ileus of large intestine K56.0 Antineoplastic chemotherapy induced pancytopenia D61.810; T45.1X5A Neutropenia D70.9 Adenocarcinoma carcinomatosis C80.0 Hypothyroidism E03.9 Post-polio syndrome G14 Candidiasis of mouth and esophagus B37.81; B37.0 History of DVT (deep vein thrombosis) Z86.718 Severe protein-calorie malnutrition E43 Hypocalcemia E83.51 DVT prophylaxis Z29.9 Vitamin D deficiency E55.9 Hypophosphatemia E83.39 Acute metabolic encephalopathy G93.41 Urinary retention R33.9
[2022-08-09] MEDS: SENNA 8.6 MG TAB PO SCH (21:05)
[2022-08-09] MEDS: MELATONIN 3 MG TAB PO SCH (21:05)
[2022-08-09] MEDS: MIRTAZAPINE TAB 15 MG TAB PO SCH (21:42)
[2022-08-10] MEDS: LEVOTHYROXINE SODIUM 100 MCG TABLET PO SCH (06:25)
[2022-08-10 06:41] LABS: Hematocrit (blood only) 27.6 % (42.0-52.0); Hemoglobin 9.5 g/dl (14.0-18.0); Mean Corpuscular Hemoglobin 29.6 pg (25.0-34.0); Mean Corpuscular Hgb Conc 34.4 g/dL (32.0-36.0); Mean Platelet Volume 10.8 fL (9.4-12.4); Nucleated RBC # (auto) 0.03 K/uL (0-0.12); Nucleated RBC % (auto) 0.3 %; Platelet Count 203 K/uL (130-400); RDW Coefficient of Variation 15.2 % (11.5-14.5); RDW Standard Deviation 45.9 fL (36.4-46.3); Red Blood Count 3.21 M/uL (4.70-6.10); White Blood Count 9.76 K/ul (4.8-10.8)
[2022-08-10 06:55] LABS: Albumin Globulin Ratio 1.2 (0.9-2); Albumin Level 2.4 gm/dl (3.4-5.0); BUN Creatinine Ratio 24.6 (10-20); Bilirubin,Total 0.5 mg/dl (0.2-1.0); Calcium 6.5 mg/dl (8.5-10.1); Creatinine Clr Calc Pharmacy 80.8 ml/min; Est GFR (African American) 100.3 ml/min; Est GFR (Non-African American) 86.6 ml/min; Potassium 3.4 mmol/L (3.5-5.1); Total Protein 4.4 gm/dl (6.0-8.3)
[2022-08-10] MEDS ORDERED: POTASSIUM CHLORIDE CRTAB 20 MEQ TABCR PO STA (08:02)
[2022-08-10] MEDS ORDERED: STAT IV STA ×2 (08:02→18:58)
[2022-08-10] MEDS ORDERED: CALCIUM GLUCONATE 10% 1,000 MG in DEXTROSE 5% 50 ML IV ONE ×2 (08:30→19:15)
[2022-08-10] MEDS: ONDANSETRON INJ 2 MG/ML 2 ML VIAL IV PRN (08:44)
[2022-08-10] MEDS: cephALEXin 500 MG CAP PO SCH ×3 (09:12→20:32)
[2022-08-10] MEDS: ENOXAPARIN INJ 40 MG/0.4 ML SYR SQ SCH (09:12)
[2022-08-10] MEDS: CHOLECALCIFEROL 5,000 UNITS 125 MCG TAB PO SCH (09:12)
[2022-08-10] MEDS: CEROVITE ADV FORMULA TAB PO SCH (09:12)
[2022-08-10] MEDS: POT PHOSPHATE MONOBASIC W/ SOD TAB PO SCH ×4 (09:13→20:31)
[2022-08-10] MEDS: PANTOprazole 40 MG TAB PO SCH (09:13)
[2022-08-10] MEDS: SUCRALFATE 1 GM/10 ML UDC PO SCH ×4 (09:13→20:29)
[2022-08-10] MEDS: DOXYCYCLINE HYCLATE 100 MG CAP PO SCH ×2 (09:13→20:30)
[2022-08-10] MEDS: FIRST - Mouthwash BLM 119 ML PO SCH ×4 (09:30→20:27)
[2022-08-10] MEDS: NYSTATIN SUSP 500,000 U/5 ML UDC PO SCH ×4 (09:30→20:28)
[2022-08-10] MEDS: CALCIUM CARBONATE 500 MG CHEWABLE TAB PO SCH ×2 (09:30→20:28)
[2022-08-10] MEDS: HEPARIN 100 UNIT/ML 5ML FLUSH FLUSH PRN (09:32)
--- NOTE | 2022-08-10 10:56 | Electrocardiogram Report ---
Test Reason : Blood Pressure : / mmHG Vent. Rate : 085 BPM Atrial Rate : 085 BPM P-R Int : 160 ms QRS Dur : 082 ms QT Int : 454 ms P-R-T Axes : 071 035 055 degrees QTc Int : 540 ms Sinus rhythm with occasional Premature ventricular complexes and Premature atrial complexes Abnormal ECG When compared with ECG of 04-AUG-2022 17:45, Nonspecific T wave abnormality now evident in Lateral leads Confirmed by Manuel Smith ([id number] on 08/10/2022 10:55:55 AM Referred By: REFERRED SELF Confirmed By:Doug Smith
--- NOTE | 2022-08-10 12:22 | Hospitalist Progress Note ---
Date of Service August 10, 2022 Assessment & Plan (1) Cellulitis of right leg: Plan: resolved. s/p IV vanco previously. remains on keflex + doxy by mouth. today is ~day #7 of IV/PO abx. can like d/c all antibiotics tomorrow. blood cultures fully negative. 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 with Dr Arroyo, [facility]. Recently initiated gemcitabine and abraxane. last chemo was 07/31/22. I spoke with Dr Arroyo 08/08 and updated her on his current status Also provided correspondence to her this am that CT a/p findings show progressive enlargement of primary pancreatic mass and carcinomatosis findings are worse. Dr Arroyo to check CA 19-9 level. If levels rising, and given CT findings and poor tolerance of chemotherapy, other options (hospice, etc) may need to be discussed. (3) Hypocalcemia: Plan: possibly 2nd to vit D deficiency possibly 2nd to chemo although both chemo agents (gemcitabine & abraxane), per the literature, rarely cause low calcium (there are case reports only) 25-OH vit D level low at 19 - started vitamin D 5000 IU daily phos is low - replacing cont calcium carbonate 1000mg BID will give additional calcium gluconate IV this am (1000mg x 1) patient had had intermittent muscle spasms of legs which may be due to the hypocalcemia elevated PTH level fits with vit D deficiency patient does not have bone mets from his cancer thus osteoblastic mets causing low calcium unlikely hypocalcium has been recalcitrant - will consult Dr Caceres from nephrology for additional recommendations and assistance (4) SVT (supraventricular tachycardia): Plan: had 2 nights of narrow complex tachycardia a few days ago. first night had about 20 minutes of what appeared to be SVT/AVNRT. 2nd night had about 80-90 minutes of the same rhythm. it did not appear to be a.fib or a.flutter. he was asymptomatic during such. not a good candidate for beta afshin therapy as BPs are low-normal most times. if he develops recurrent runs can use vagal maneuvers to break such. echo this admission with normal EF and normal valve function. (5) Paralytic ileus of large intestine: Plan: improving/resolving multifactorial etiology - electrolyte disturbances, copious amounts of imodium at home pre-hospital, immobility, etc. cannot rule out some effect of his carcinomatosis contributing to such but much less likely. cont to replace lytes and normalize his calcium level mobilize as tolerated cont senna 2 tabs daily as he does have a large amount of stool on imaging CT a/p 08/09/22 without obstruction. (6) Antineoplastic chemotherapy induced pancytopenia: Plan: resolved neutropenia resolved. WBC count now normal. platelets now normal. cbc is stable. (7) Neutropenia: Plan: 2nd to recent chemotherapy for stage 4 pancreatic ca -- resolved. 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 perhaps try regular diet tomorrow. (13) DVT prophylaxis: Plan: lovenox 40mg daily (14) Vitamin D deficiency: Plan: level = 18 vit D 5000 IU daily (15) Hypophosphatemia: Plan: likely 2nd to vit D deficiency, poor oral intake, etc added K-phos neutral QID recheck phos in 48 hours (16) Acute metabolic encephalopathy: Plan: likely multifactorial - hospital psychosis, infection (cellulitis), etc. check CT head - r/o mets, ICH, etc. patient with severely distressing visual hallucinations I obtained EKG due to prior prolonged QTc - unfortunately EKG continues to show QTc >500 likely from low calcium thus, to promote better rest and appetite - started remeron 7.5mg HS 08/09/22 tolerated such cont melatonin 3mg HS (17) Urinary retention: Plan: likely 2nd to BPH colonic issues could be contributing as well mcginnis placed this past weekend (08/08/22) mcginnis working well Plan updated extensively at bedside once again today Mr Wiseman likely needs SNF placement post-discharge unless a decision is made at some point that he transitions to hospice care d/w Dr Caceres; appreciate his consult consider palliative care consult Admission and Anticipated Discharge Date Admission Date: August 04, 2022 Subjective tele overnight - PVCs, PACs, but no SVT; NSR pt slept well overnight - got 4-5 hours of sleep, most he has had in a while denies having had hallucinations moved bowels a little this am muscle spasms are better pt's was able to watch PT session today -- she and agree he is too weak to return home we discussed CT head and CT a/p results from yesterday Review of Systems Review of Systems: gen - no fevers; does have a little more appetite mouth - denies pain from mucositis cv - no cp, no orthopnea pulm - no dyspnea at rest or cough GI - no N/V or diarrhea - mcginnis draining fine with normal, yellow urine Physical Exam Physical Exam: gen - NAD, pleasant, a little more animated today mouth - MMM; severe mucositis improved; thrush resolved neck - no JVD heart - RRR, s1 s2, no murmur lungs - CTA b/l but decreased BS bases abd - distension unchanged from prior exam; tumor deposit left side of abdominal wall laterally at least 4-5cm in diameter - no change; Nontender; BS+ ext - right leg is smaller than left leg due to prior polio; no significant edema; pulses 2+ b/l feet skin - cellulitis of distal right bauer, ankle & dorsum of foot resolved Results & Data Results & Data Vital Signs (Past 12 Hours) Vital Signs Temp Pulse Pulse Resp BP Pulse Ox O2 Del Method 08/10/22 10:51 36.3 C L 89 16 118/54 L 94 Room Air 08/10/22 08:07 83 08/10/22 07:26 36.4 C L 97 H 16 133/65 95 Room Air 08/10/22 03:55 36.4 C L 75 18 117/54 L 95 Room Air Laboratory Results Laboratory Results - last 24 hr 08/10/22 08/10/22 08/10/22 06:16 06:16 08:36 WBC 9.76 RBC 3.21 L Hgb 9.5 L Hct 27.6 L MCV 86.0 MCH 29.6 MCHC 34.4 RDW Std Deviation 45.9 RDW Coeff of Dinora 15.2 H Plt Count 203 MPV 10.8 Absolute Nucleated RBC 0.03 Nucleated RBC % (auto) 0.3 Sodium 144 Potassium 3.4 L Chloride 115 H Carbon Dioxide 24 Anion Gap 5 BUN 17 Creatinine 0.69 Est Cr Clr Drug Dosing 80.8 Est GFR ( Amer) 100.3 Est GFR (Non-Af Amer) 86.6 BUN/Creatinine Ratio 24.6 H Glucose 106 H Calcium 6.5 L Total Bilirubin 0.5 AST 44 H ALT 26 Alkaline Phosphatase 181 H Total Protein 4.4 L Albumin 2.4 L Globulin 2.0 L Albumin/Globulin Ratio 1.2 CA 19-9 Antigen Pending PG Care Time/CCT Total # of Minutes Spent Total Time Spent with Patient: Total time spent is greater than 50% in coordination of care (as documented) at patient's floor/unit and/or counseling patient: Coding Level of Care Code 16316 SUB INP/OBS CARE 3/50MIN Diagnoses Cellulitis of right leg L03.115 Adenocarcinoma carcinomatosis C80.0 Hypocalcemia E83.51 SVT (supraventricular tachycardia) I47.1 Paralytic ileus of large intestine K56.0 Antineoplastic chemotherapy induced pancytopenia D61.810; T45.1X5A Neutropenia D70.9 Hypothyroidism E03.9 Post-polio syndrome G14 Candidiasis of mouth and esophagus B37.81; B37.0 History of DVT (deep vein thrombosis) Z86.718 Severe protein-calorie malnutrition E43 DVT prophylaxis Z29.9 Vitamin D deficiency E55.9 Hypophosphatemia E83.39 Acute metabolic encephalopathy G93.41 Urinary retention R33.9
[2022-08-10] MEDS ORDERED: ERGOCALCIFEROL 50,000 UNITS 1250 MCG CAP PO ONE (12:45)
--- NOTE | 2022-08-10 16:30 | Nephrology Consultation ---
Date of Consultation August 10, 2022 Assessment & Plan (1) Hypocalcemia: (2) Vitamin D deficiency: (3) Primary pancreatic cancer with metastasis to other site: (4) Adenocarcinoma carcinomatosis: Plan Hypocalcemia likely on the basis of vitamin D deficiency. PTH is appropriately elevated. No evidence of osteoblastic metastasis on imaging. Agree w/ 1 g Ca gluconate IV today. Will change from OTC Vitamin D 1000 units BID to Ergocalciferol 50,000 units daily x 5 doses. Will recheck serum Ca this afternoon and redose Ca gluconate for corrected Ca < 8.5. Will order PRP, PO4, 25-OH vitamin D with am labs. 80 min consultation time History of Present Illness Reason for Consultation: Hypocalcemia Attending Physician: Alexander Greenwood History of Present Illness Mr. Wiseman is an 87 year old male who is seen at the request of Dr. Greenwood for evaluation of hypocalcemia. Medical records in the EMR were reviewed today and are summarized as follows: Mr. Wiseman has pancreatic cancer w/ carcinomatosis. He has recently received chemotherapy consisting of Gemcitabine and Abraxane. Mr. Wiseman was admitted to [facility] 08/04/22 for evaluation of weakness and RLE edema/cellulitis. Laboratory testing revealed albumin 2.4-2.8 with serum Ca 6.3-6.8. Intact PTH has been appropriately elevated at 223.3. 25-OH vitamin D has been low at 19. As an outpatient Mr. Wiseman has maintained his Ca within normal limits on OTC Vitamin D 1,000 units daily. He denies any prior h/o hypocalcemia, parathyroid disorder or renal disease. PMH - pancreatic cancer w/ carcinomatosis, anemia, COVID + 2021, hyperlipidemia, hypothyroidism, post-polio syndrome w/ chronic R leg weakness Allergies Allergy/AdvReac Type Severity Reaction Status Date / Time No Known Allergies Allergy Verified 08/04/22 19:07 Home Medications Medication Instructions Recorded Confirmed Type cholecalciferol (vitamin D3) 50 50 mcg PO DAILY 02/18/21 08/04/22 History mcg (2,000 unit) capsule calcium carbonate 550 mg-magnesium 2 tab PO Q4H PRN Acid Reflux 06/15/22 08/04/22 History hydroxide 110 mg chewable tablet levothyroxine 100 mcg tablet 100 mcg PO QAM 06/15/22 08/04/22 History psyllium husk 3.4 gram/5.4 gram 1 tbsp PO BID PRN Constipation 06/16/22 08/04/22 History oral powder (Metamucil) acetaminophen 325 mg tablet 325 mg PO QID PRN Pain 07/13/22 08/04/22 History (Tylenol) lidocaine-prilocaine 2.5 %-2.5 % 1 applic topical DIRECTED PRN 08/04/22 08/04/22 History topical cream PRIOR TO PROCEDURES loperamide 2 mg capsule 2 mg PO DIRECTED PRN Diarrhea 08/04/22 08/04/22 History twcskjvyqvfc-jrlcicwn-drxidl 1 tab PO DAILY 08/04/22 08/04/22 History tablet (Multivitamin 50 Plus tablet) ondansetron HCl 8 mg tablet 8 mg PO Q8H PRN NAUSEA/VOMITING 08/04/22 08/04/22 History oxycodone 5 mg tablet 5 mg PO .Q4-6H PRN Pain 08/04/22 08/04/22 History pantoprazole 40 mg tablet,delayed 40 mg PO HS 08/04/22 08/04/22 History release prochlorperazine maleate 10 mg 10 mg PO Q6H PRN NAUSEA/VOMITING 08/04/22 08/04/22 History tablet Patient History Medical History Acid reflux Uses PRN Rolaids 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, 'working diagnosis continues to be metastatic prostate ca' Anemia, mild DVT (deep venous thrombosis) History of, due to prolonged sitting, 1969's > resolved Dysphagia No recent mention of dysphagia in past several PCP notes History of COVID-summer > very mild symptoms Hoarseness, chronic Hyperlipidemia Resolved per pt HLD per 02/2022 PCP note - recommend statin but patient defers at this time Hypothyroidism Mild bibasilar atelectasis Per recent CT on 06/10/22 per pt PAC (premature atrial contraction) Post-polio syndrome Chronic right leg weakness per records Per PCP records- "PT for post polio and arranged for balance" Prediabetes TIA (transient ischemic attack) Pt denies - no mention of TIA in recent PCP notes Surgical History H/O hand surgery right H/O umbilical hernia repair (06/18/22) Diagnostic Laparoscopy, Peritoneal Biopsy, Omentum Biopsy, Abdominal Wall Biopsy, Umbilical Hernia Repair by 06/18/22; GA MAC #4, ETT #7.5, Gr View 2 History of biopsy (06/18/22) Diagnostic Laparoscopy, Peritoneal Biopsy, Omentum Biopsy, Abdominal Wall Biopsy, Umbilical Hernia Repair by 06/18/22 History of cataract surgery bilat History of colonoscopy History of tooth extraction History of total left hip replacement Intestinal obstruction 1961 > with surgical repair Port-A-Cath in place (07/16/22) Insertion Access Port in Left Subclavian with Fluoroscopy - Will Joshua, DO S/P ankle arthrodesis S/P appendectomy S/P hernia repair S/P tonsillectomy and adenoidectomy Family History Father Coronary heart disease Hypoplastic anemia Myocardial infarction Nephrolithiasis Heart disease Mother Hypothyroidism Sister Hypothyroidism Colorectal cancer Son Marfan syndrome Grandmother Cancer Uncle Heart disease Denies family history of Ovarian cancer Prostate cancer Breast cancer Social History Smoking Status: Never smoker Tobacco Type: Pipe Age Started Using Tobacco: 19; Age Quit Using Tobacco: 45; packs per day: 2; Cigarettes Per Day: two pipe fulls a day; Second Hand Exposure: No; Hx Alcohol Use: No Hx Substance Use: No Preferred Language: Bulgarian Communication Ability: Effective Visual Impairment: Limited Hearing Ability: Use of Hearing Aid Specimen Boss Required: No Beliefs That Will Affect Care: None marital status: Current Living Situation: Spouse Current Living Situation Comment: home w spouse current occupational status: retired current occupation: professor at [employer], Emeritus Professor How many Children do You have: 2 Other Information That Helps Us Care for You: No Feels Safe at Home: Yes Safety Concerns: Feels Safe At This Time Childhood Exposure to Second-Hand Smoke: Yes caffeine: Yes (1 coffee per day) during the past year weight has: decreased > 10 lbs Dental Care, Regularly: Yes Physical Activity Frequency: 1-2 Times per Week Seatbelt Use: always Sunscreen Use: No Assistive Devices: Glasses and Walker Review of Systems Constitutional: no fever Eyes: no problem reported Ear, Nose, Mouth, Throat: no problem reported Respiratory: no dyspnea Cardiovascular: no chest pain Gastrointestinal: no abdominal pain Genitourinary: no dysuria or no urinary hesitancy Neurologic: + generalized weakness Physical Exam Constitutional: + ill appearing and + thin Eyes: PERRL, conjunctivae normal, anicteric sclerae ENMT: external ear and nose normal, oropharynx normal Neck: trachea midline, no thyromegaly Respiratory: normal respiratory effort, lungs clear to auscultation Cardiovascular: Rate/Rhythm: regular rate and regular rhythm Extremities: + edema (1+ swelling R foot and ankle) Gastrointestinal (Abdomen): Inspection/Auscultation: + hypoactive bowel sounds Percussion/Palpation: abdomen nontender and no guarding Neurologic: negative Chvostek's sign Results & Data Vital Signs (Past 12 Hours) Vital Signs Temp Pulse Pulse Resp BP Pulse Ox O2 Del Method 08/10/22 15:31 77 08/10/22 14:50 37.3 C 86 18 119/62 95 Room Air 08/10/22 10:51 36.3 C L 89 16 118/54 L 94 Room Air 08/10/22 08:07 83 08/10/22 07:26 36.4 C L 97 H 16 133/65 95 Room Air Laboratory Results Laboratory Tests 08/07/22 08/08/22 08/10/22 08:06 09:15 06:16 WBC 9.76 Hgb 9.5 L Hct 27.6 L Plt Count 203 Sodium Potassium Chloride Carbon Dioxide BUN Creatinine Glucose Calcium Albumin 25-OH Vitamin D Total 19.0 L PTH Intact 223.3 H 08/10/22 06:16 WBC Hgb Hct Plt Count Sodium 144 Potassium 3.4 L Chloride 115 H Carbon Dioxide 24 BUN 17 Creatinine 0.69 Glucose 106 H Calcium 6.5 L Albumin 2.4 L 25-OH Vitamin D Total PTH Intact Diagnostic Findings 08/09/[address] with contrast - Interval development of small to moderate bilateral pleural effusions with bilateral lower lobe densities suggestive of compressive atelectasis. No pneumoperitoneum. No pneumatosis. There is a left hip prosthesis again noted. No suspicious lytic or blastic osseous lesions. There is a small hiatus hernia. The liver, gallbladder, spleen, and adrenal glands unremarkable. Stable bilateral renal hypodense lesions. These favor cys ts. Calcified plaque within the normal caliber abdominal aorta. No retroperitoneal or pelvic lymphadenopathy. There is moderate to severe body wall edema. There is a Monzon catheter within the decompressed bladder. Increase in size in the ill-defined mass within the distal body of the pancreas which measures 2.9 cm. This abuts the left adrenal gland. This results in severe dilatation of the proximal main pancreatic duct which is slightly progressed. Small to moderate amount of ascites has progressed. This is consistent with progressive metastatic disease. Colonic diverticulosis. No evidence for acute diverticulitis. Questionable thickening of the descending colon and proximal sigmoid colon is likely due to underdistention and serosal metastatic disease. There is no pericolonic inflammatory change to suggest a colitis at this time. No dilated loops of bowel to suggest an obstruction. Interval progression of the multiple scattered omental nodules and peritoneal enhancement/thickening cons istent with progressive perineal carcinomatosis. PG Care Time/CCT Total # of Minutes Spent Total Time Spent with Patient: Total time spent is greater than 50% in coordination of care (as documented) at patient's floor/unit and/or counseling patient: Coding Level of Care Code 41820 IN/OBS CONSULT LVL 5,80M Diagnoses Hypocalcemia E83.51 Vitamin D deficiency E55.9 Primary pancreatic cancer with metastasis to other site C25.9 Adenocarcinoma carcinomatosis C80.0
[2022-08-10] MEDS: MIRTAZAPINE TAB 15 MG TAB PO SCH (20:30)
[2022-08-10] MEDS: MELATONIN 3 MG TAB PO SCH (20:34)
[2022-08-10] MEDS: SENNA 8.6 MG TAB PO SCH (20:35)
[2022-08-11] MEDS: LEVOTHYROXINE SODIUM 100 MCG TABLET PO SCH (06:34)
[2022-08-11] MEDS: ERGOCALCIFEROL 50,000 UNITS 1250 MCG CAP PO SCH (08:59)
[2022-08-11] MEDS: NYSTATIN SUSP 500,000 U/5 ML UDC PO SCH ×4 (08:59→21:31)
[2022-08-11] MEDS: FIRST - Mouthwash BLM 119 ML PO SCH ×4 (09:00→21:31)
[2022-08-11] MEDS: CALCIUM CARBONATE 500 MG CHEWABLE TAB PO SCH ×4 (09:00→21:27)
[2022-08-11] MEDS: cephALEXin 500 MG CAP PO SCH ×3 (09:01→21:31)
[2022-08-11] MEDS: POT PHOSPHATE MONOBASIC W/ SOD TAB PO SCH ×4 (09:01→21:26)
[2022-08-11] MEDS: CEROVITE ADV FORMULA TAB PO SCH (09:02)
[2022-08-11] MEDS: PANTOprazole 40 MG TAB PO SCH (09:02)
[2022-08-11] MEDS: DOXYCYCLINE HYCLATE 100 MG CAP PO SCH ×2 (09:02→21:30)
[2022-08-11] MEDS: SUCRALFATE 1 GM/10 ML UDC PO SCH ×4 (09:02→21:30)
[2022-08-11] MEDS: ENOXAPARIN INJ 40 MG/0.4 ML SYR SQ SCH (09:02)
[2022-08-11] MEDS: POTASSIUM CHLORIDE CRTAB 20 MEQ TABCR PO SCH ×2 (09:08→21:28)
--- NOTE | 2022-08-11 09:19 | Nephrology Progress Note ---
Date of Service August 11, 2022 Assessment & Plan (1) Hypocalcemia: Plan: * Hypocalcemia likely on the basis of vitamin D deficiency * PTH is appropriately elevated * No evidence of osteoblastic metastasis on imaging * Corrected Ca ~ 8.5. Will provide 1g IV Ca gluconate today * Recheck serum Ca in am (2) Vitamin D deficiency: Plan: * Supplementing w/ Ergocalciferol * Vitamin D is trending up * Will repeat 25 hydroxy vitamin D in am (3) Primary pancreatic cancer with metastasis to other site: (4) Adenocarcinoma carcinomatosis: Admission and Anticipated Discharge Date Admission Date: August 04, 2022 Subjective Mr. Wiseman was evaluated in his hospital room this morning. He reports that his strength is mildly improved. He voices no new medical concerns Review of Systems Constitutional: no fever Eyes: no problem reported Ear, Nose, Mouth, Throat: no problem reported Respiratory: no dyspnea Cardiovascular: no chest pain Gastrointestinal: no abdominal pain Genitourinary: no dysuria or no urinary hesitancy Neurologic: + generalized weakness Physical Exam Constitutional: + ill appearing and + thin Eyes: PERRL, conjunctivae normal, anicteric sclerae ENMT: external ear and nose normal, oropharynx normal Neck: trachea midline, no thyromegaly Respiratory: normal respiratory effort, lungs clear to auscultation Cardiovascular: Rate/Rhythm: regular rate and regular rhythm Extremities: + edema (1+ swelling R foot and ankle) Gastrointestinal (Abdomen): Inspection/Auscultation: + hypoactive bowel sounds Percussion/Palpation: abdomen nontender and no guarding Results & Data Vital Signs (Past 12 Hours) Vital Signs Temp Pulse Pulse Resp BP Pulse Ox O2 Del Method 08/11/22 07:40 69 08/11/22 07:22 37.1 C 89 18 120/66 93 Room Air 08/11/22 00:00 86 08/10/22 23:00 36.5 C 78 20 120/70 95 Room Air Laboratory Results Laboratory Tests 08/07/22 08/11/22 08/11/22 08:06 08:37 08:37 Sodium 143 Potassium 3.6 Chloride 115 H Carbon Dioxide 24 BUN 16 Creatinine 0.65 Glucose 111 H Calcium 7.0 L Ionized Calcium Albumin 25-OH Vitamin D Total 19.0 L 21.1 L 08/11/22 08/11/22 08:37 09:31 Sodium Potassium Chloride Carbon Dioxide BUN Creatinine Glucose Calcium Ionized Calcium 1.04 L Albumin 2.4 L 25-OH Vitamin D Total PG Care Time/CCT Total # of Minutes Spent Total Time Spent with Patient: Total time spent is greater than 50% in coordination of care (as documented) at patient's floor/unit and/or counseling patient: Coding Level of Care Code 12525 SUB INP/OBS CARE 3/50MIN Diagnoses Hypocalcemia E83.51 Vitamin D deficiency E55.9 Primary pancreatic cancer with metastasis to other site C25.9 Adenocarcinoma carcinomatosis C80.0
[2022-08-11 09:21] LABS: Albumin Level 2.4 gm/dl (3.4-5.0); Bilirubin Direct 0.1 mg/dl (0-0.2); Bilirubin,Total 0.6 mg/dl (0.2-1.0); Total Protein 4.5 gm/dl (6.0-8.3)
[2022-08-11 09:22] LABS: BUN Creatinine Ratio 24.6 (10-20); Creatinine Clr Calc Pharmacy 85.8 ml/min; Est GFR (African American) 102.8 ml/min; Est GFR (Non-African American) 88.7 ml/min; Phosphorus 2.1 mg/dl (2.5-4.9); Potassium 3.6 mmol/L (3.5-5.1)
[2022-08-11] MEDS ORDERED: STAT IV STA (09:49)
[2022-08-11] MEDS ORDERED: CALCIUM GLUCONATE 10% 1,000 MG in DEXTROSE 5% 50 ML IV ONE (10:00)
[2022-08-11] MEDS ORDERED: ERGOCALCIFEROL 50,000 UNITS 1250 MCG CAP PO ONE (11:15)
--- NOTE | 2022-08-11 14:17 | Hospitalist Progress Note ---
Date of Service August 11, 2022 Assessment & Plan (1) Cellulitis of right leg: Plan: Improving. Treated with intravenous vancomycin on admission and now transition to oral Keflex and doxycycline. Antibiotic day 8 . Blood cultures negative. 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 There has been progression as expected. Follows with Dr Arroyo, [facility]. Recently initiated gemcitabine and abraxane. Last chemo was 07/31/22. (3) Hypocalcemia: Plan: Continue oral and IV calcium supplementation and oral vitamin D. Appreciate nephrology consultation and recommendations. Serial labs. (4) SVT (supraventricular tachycardia): Plan: Several episodes of paroxysmal SVT noted on telemetry strips. Asymptomatic. Considering beta-afshin therapy. Cardiac echo reveals preserved left vent ricular systolic function, no significant valvular abnormalities (5) Paralytic ileus of large intestine: Plan: improving/resolving . Diet has been advanced. Will follow. CT a/p 08/09/22 without obstruction. (6) Antineoplastic chemotherapy induced pancytopenia: Plan: resolved. Serial labs (7) Neutropenia: Plan: 2nd to recent chemotherapy for stage 4 pancreatic ca . Resolved. (8) Hypothyroidism: Plan: TSH 05/2022 wnl . 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 Supportive care (10) Candidiasis of mouth and esophagus: Plan: Resolved with nystatin swish and swallow (11) History of DVT (deep vein thrombosis): Plan: lovenox 40mg daily (12) Severe protein-calorie malnutrition: Plan: Per [place] criteria. Ileus has resolved and diet has been advanced. (13) DVT prophylaxis: Plan: lovenox 40mg daily (14) Vitamin D deficiency: Plan: Supplementation ordered. (15) Hypophosphatemia: Plan: Corrected with parenteral phosphorus replacement (16) Acute metabolic encephalopathy: Plan: Present on admission. Now resolved. Head CT scan negative for metastatic disease. Resting better with Remeron and melatonin (17) Urinary retention: Plan: likely 2nd to BPH. Monzon placed this past weekend (08/08/22) Plan OT and PT recommend SNF placement. Case management involved. Admission and Anticipated Discharge Date Admission Date: August 04, 2022 Subjective Alert and oriented. Pleasant. He believes the right lower extremity cellulitis has improved. He is now on oral Keflex and doxycycline. Nephrology entry noted. Continue oral calcium supplementation and vitamin D. Oral potassium ordered. OT and PT recommend SNF placement at discharge. Abdomen CT scan reveals progression of underlying disease. Head CT scan remains negative for metastatic disease Review of Systems Review of Systems: Constitutional-no fever or chills ENT-no blurred vision, no double vision, no epistaxis, no sore throat Respiratory-no cough, no wheezing, no shortness of breath Cardiac-no palpitations, no chest pain, no syncope GI-no nausea, vomiting, diarrhea, melena, hematochezia -no urinary retention, no urinary incontinence, no dysuria, no hematuria Musculoskeletal-no joint pain, no muscle tenderness Skin-no bruising, no rashes, no pruritus Neuro-no isolated weakness, no paresthesia, no weakness Psych-no depression, no anxiety Physical Exam Physical Exam: General-alert and oriented x3, no fevers, no chills HEENT-head atraumatic and normocephalic, pupils equal and reactive to light, extraocular muscles intact Neck-no lymphadenopathy or thyromegaly, trachea midline Chest-clear to auscultation percussion. No rales wheezing or rhonchi Cardiac-regular rate and rhythm, normal S1 and S2 Abdomen-normal bowel sounds, nontender, no hepatosplenomegaly Extremities-improving right lower extremity cellulitis Neuro-cranial nerves II through XII intact, motor and sensory function within normal limits, strength symmetrical but with generalized weakness, no focal deficits Psych-normal affect, normal mood Results & Data Results & Data Vital Signs (Past 12 Hours) Vital Signs Temp Pulse Pulse Resp BP Pulse Ox O2 Del Method 08/11/22 10:58 36.4 C L 98 H 18 113/61 95 Room Air 08/11/22 10:41 Room Air 08/11/22 07:40 69 08/11/22 07:22 37.1 C 89 18 120/66 93 Room Air Laboratory Results 08/10/22 06:16 08/11/22 08:37 PG Care Time/CCT Total # of Minutes Spent Total Time Spent with Patient: Total time spent is greater than 50% in coordination of care (as documented) at patient's floor/unit and/or counseling patient: Coding Level of Care Code 42102 SUB INP/OBS CARE 3/50MIN Diagnoses Cellulitis of right leg L03.115 Adenocarcinoma carcinomatosis C80.0 Hypocalcemia E83.51 SVT (supraventricular tachycardia) I47.1 Paralytic ileus of large intestine K56.0 Antineoplastic chemotherapy induced pancytopenia D61.810; T45.1X5A Neutropenia D70.9 Hypothyroidism E03.9 Post-polio syndrome G14 Candidiasis of mouth and esophagus B37.81; B37.0 History of DVT (deep vein thrombosis) Z86.718 Severe protein-calorie malnutrition E43 DVT prophylaxis Z29.9 Vitamin D deficiency E55.9 Hypophosphatemia E83.39 Acute metabolic encephalopathy G93.41 Urinary retention R33.9
[2022-08-11 15:32] LABS: BUN Creatinine Ratio 24.3 (10-20); Calcium 6.9 mg/dl (8.5-10.1); Creatinine Clr Calc Pharmacy 79.7 ml/min; Est GFR (African American) 99.7 ml/min; Est GFR (Non-African American) 86.1 ml/min; Potassium 3.6 mmol/L (3.5-5.1)
[2022-08-11] MEDS: MELATONIN 3 MG TAB PO SCH (21:24)
[2022-08-11] MEDS: MIRTAZAPINE TAB 15 MG TAB PO SCH (21:28)
[2022-08-11] MEDS: SENNA 8.6 MG TAB PO SCH (21:30)
[2022-08-12] MEDS: LEVOTHYROXINE SODIUM 100 MCG TABLET PO SCH (06:33)
[2022-08-12 07:12] LABS: Hematocrit (blood only) 27.1 % (42.0-52.0); Hemoglobin 9.2 g/dl (14.0-18.0); Mean Corpuscular Hgb Conc 33.9 g/dL (32.0-36.0); Mean Corpuscular Volume 88.3 fL (80.0-100.0); Mean Platelet Volume 10.6 fL (9.4-12.4); Platelet Count 268 K/uL (130-400); RDW Standard Deviation 48.3 fL (36.4-46.3); Red Blood Count 3.07 M/uL (4.70-6.10)
[2022-08-12 07:40] LABS: BUN Creatinine Ratio 26.2 (10-20); Calcium 6.8 mg/dl (8.5-10.1); Creatinine Clr Calc Pharmacy 85.8 ml/min; Est GFR (African American) 102.8 ml/min; Est GFR (Non-African American) 88.7 ml/min; Potassium 3.7 mmol/L (3.5-5.1)
[2022-08-12 07:44] LABS: Basophils # (auto) 0.07 K/uL (0-0.2); Basophils % (auto) 0.7 %; Eosinophils # (auto) 0.05 K/uL (0-0.50); Eosinophils % (auto) 0.5 %; Immature Granulocytes # (auto) 0.87 K/uL (0.01-0.20); Immature Granulocytes % (auto) 8.9 %; Lymphocytes # (auto) 0.94 K/uL (1.2-3.4); Lymphocytes % (auto) 9.6 %; Monocytes # (auto) 1.36 K/uL (0.11-0.59); Monocytes % (auto) 13.9 %; Neutrophils # (auto) 6.51 K/uL (1.40-6.50); Neutrophils % (auto) 66.4 %
[2022-08-12] MEDS ORDERED: STAT IV STA (08:49)
--- NOTE | 2022-08-12 08:51 | Nephrology Progress Note ---
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 Wiseman was evaluated in his hospital room this morning. He c/o gas pain, but notes that his strength is mildly improved Review of Systems Constitutional: no fever Eyes: no problem reported Ear, Nose, Mouth, Throat: no problem reported Respiratory: no dyspnea Cardiovascular: no chest pain Gastrointestinal: no abdominal pain Genitourinary: no dysuria or no urinary hesitancy Neurologic: + generalized weakness Physical Exam Constitutional: + ill appearing and + thin Eyes: PERRL, conjunctivae normal, anicteric sclerae ENMT: external ear and nose normal, oropharynx normal Neck: trachea midline, no thyromegaly Respiratory: normal respiratory effort, lungs clear to auscultation Cardiovascular: Rate/Rhythm: regular rate and regular rhythm Extremities: + edema (1+ swelling R foot and ankle) Gastrointestinal (Abdomen): Inspection/Auscultation: + hypoactive bowel sounds Percussion/Palpation: abdomen nontender and no guarding Results & Data Vital Signs (Past 12 Hours) Vital Signs Temp Pulse Pulse Resp BP Pulse Ox O2 Del Method 08/12/22 08:21 36.7 C 87 17 119/65 93 Room Air 08/12/22 04:35 37 C 96 H 16 119/63 96 Room Air 08/12/22 00:00 84 08/11/22 22:38 37 C 90 18 118/61 95 Room Air Laboratory Results Laboratory Tests 08/11/22 08/12/22 08/12/22 08:37 06:26 06:26 WBC 9.80 Hgb 9.2 L Hct 27.1 L Plt Count 268 Sodium 142 Potassium 3.7 Chloride 113 H Carbon Dioxide 24 BUN 17 Creatinine 0.65 Glucose 100 H Calcium 6.8 L Albumin 2.4 L 25-OH Vitamin D Total 08/12/22 06:26 WBC Hgb Hct Plt Count Sodium Potassium Chloride Carbon Dioxide BUN Creatinine Glucose Calcium Albumin 25-OH Vitamin D Total 22.4 L Diagnostic Findings 08/12/22 KUB x-ray: 1. No evidence for a bowel obstruction. Mild gaseous distention of the colon without evidence for a significant ileus. 2. Moderate amount of stool within the colon. 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
[2022-08-12] MEDS ORDERED: CALCIUM GLUCONATE 10% 2,000 MG in DEXTROSE 5% 50 ML IV ONE (09:00)
[2022-08-12] MEDS ORDERED: ERGOCALCIFEROL 50,000 UNITS 1250 MCG CAP PO ONE (09:15)
[2022-08-12] MEDS ORDERED: SIMETHICONE 80 MG CHEW PO PRN (09:42)
[2022-08-12] MEDS: ENOXAPARIN INJ 40 MG/0.4 ML SYR SQ SCH (09:57)
[2022-08-12] MEDS: NYSTATIN SUSP 500,000 U/5 ML UDC PO SCH ×4 (09:58→21:38)
[2022-08-12] MEDS: FIRST - Mouthwash BLM 119 ML PO SCH ×4 (09:58→21:34)
--- NOTE | 2022-08-12 11:45 | XRay Report ---
KUB CLINICAL HISTORY: Abdominal distention. Evaluate for ileus. COMPARISON STUDY: CT of the abdomen and pelvis August 09, 2022. FINDINGS: Linear radiodensity within the left mid abdomen remains unchanged. Left hip arthroplasty is partially imaged. There is a Monzon catheter bladder. There is no evidence for a bowel obstruction. T here is mild gaseous distention of the colon without evidence for a significant ileus. Moderate amoun t of stool is noted. IMPRESSION: 1. No evidence for a bowel obstruction. Mild gaseous distention of the colon without evidence for a s ignificant ileus. 2. Moderate amount of stool within the colon. ACT 112: Negative or not required by law. Electronically signed by: Stevie Riley M.D. 08/12/2022 11:44 AM
[2022-08-12] MEDS: POTASSIUM CHLORIDE CRTAB 20 MEQ TABCR PO SCH ×2 (12:05→21:43)
[2022-08-12] MEDS: cephALEXin 500 MG CAP PO SCH ×3 (12:05→21:42)
[2022-08-12] MEDS: SUCRALFATE 1 GM/10 ML UDC PO SCH ×4 (12:06→21:40)
[2022-08-12] MEDS: POT PHOSPHATE MONOBASIC W/ SOD TAB PO SCH ×4 (12:06→21:39)
[2022-08-12] MEDS: PANTOprazole 40 MG TAB PO SCH (12:06)
[2022-08-12] MEDS: CEROVITE ADV FORMULA TAB PO SCH (12:07)
[2022-08-12] MEDS: ERGOCALCIFEROL 50,000 UNITS 1250 MCG CAP PO SCH (12:08)
[2022-08-12] MEDS: DOXYCYCLINE HYCLATE 100 MG CAP PO SCH ×2 (12:08→21:42)
[2022-08-12] MEDS: CALCIUM CARBONATE 500 MG CHEWABLE TAB PO SCH ×4 (12:09→21:35)
[2022-08-12 15:29] LABS: BUN Creatinine Ratio 27.5 (10-20); Calcium 7.2 mg/dl (8.6-10.3); Creatinine Clr Calc Pharmacy 80.8 ml/min; Est GFR (African American) 100.3 ml/min; Est GFR (Non-African American) 86.6 ml/min; Potassium 3.9 mmol/L (3.5-5.1)
--- NOTE | 2022-08-12 15:35 | Hospitalist Progress Note ---
Date of Service August 12, 2022 Assessment & Plan (1) Cellulitis of right leg: Plan: Improving. Treated with intravenous vancomycin on admission and now transition to oral Keflex and doxycycline. Antibiotic day 9 . Blood cultures negative. 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 There has been progression of disease as expected. Follows with Dr Arroyo, [facility]. Recently initiated gemcitabine and abraxane. Last chemo was 07/31/22. (3) Hypocalcemia: Plan: Continue oral and IV calcium supplementation and oral vitamin D. Appreciate nephrology consultation and recommendations. Serial labs. (4) SVT (supraventricular tachycardia): Plan: Several episodes of paroxysmal SVT noted on telemetry strips. Asymptomatic. Considering beta-afshin therapy. Cardiac echo reveals preserved left ventricular systolic function, no significant valvular abnormalities (5) Paralytic ileus of large intestine: Plan: Bowel sounds are now active but he has abdominal distention. KUB negative for obstruction. MiraLAX and Colace started to keep bowel movements regular. Diet has been advanced. (6) Antineoplastic chemotherapy induced pancytopenia: Plan: resolved. Serial labs (7) Neutropenia: Plan: 2nd to recent chemotherapy for stage 4 pancreatic ca . Resolved. (8) Hypothyroidism: Plan: TSH 05/2022 wnl . 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 Supportive care (10) Candidiasis of mouth and esophagus: Plan: Resolved with nystatin swish and swallow (11) History of DVT (deep vein thrombosis): Plan: lovenox 40mg daily (12) Severe protein-calorie malnutrition: Plan: Per [place] criteria. Ileus has resolved and diet has been advanced. (13) DVT prophylaxis: Plan: lovenox 40mg daily (14) Vitamin D deficiency: Plan: Supplementation ordered. (15) Hypophosphatemia: Plan: Corrected with parenteral phosphorus replacement (16) Acute metabolic encephalopathy: Plan: Present on admission. Now resolved. Head CT scan negative for metastatic disease. Resting better with Remeron and melatonin (17) Urinary retention: Plan: likely 2nd to BPH. Monzon placed this past weekend (08/08/22) Plan OT and PT recommend SNF placement. Pending. Case management involved. Admission and Anticipated Discharge Date Admission Date: August 04, 2022 Subjective Alert and oriented. He is complaining of abdominal bloating but he has active bowel sounds and KUB is negative for obstruction. MiraLAX and Colace have been added to ensure frequent bowel movements. Calcium has improved to 6.8 and potassium corrected to 3.7. Eventual SNF placement pending Review of Systems Review of Systems: Constitutional-no fever or chills ENT-no blurred vision, no double vision, no epistaxis, no sore throat Respiratory-no cough, no wheezing, no shortness of breath Cardiac-no palpitations, no chest pain, no syncope GI-no nausea, vomiting, diarrhea, melena, hematochezia -no urinary retention, no urinary incontinence, no dysuria, no hematuria Musculoskeletal-no joint pain, no muscle tenderness Skin-no bruising, no rashes, no pruritus Neuro-no isolated weakness, no paresthesia, no weakness Psych-no depression, no anxiety Physical Exam Physical Exam: General-alert and oriented x3, no fevers, no chills HEENT-head atraumatic and normocephalic, pupils equal and reactive to light, extraocular muscles intact Neck-no lymphadenopathy or thyromegaly, trachea midline Chest-clear to auscultation percussion. No rales wheezing or rhonchi Cardiac-regular rate and rhythm, normal S1 and S2 Abdomen-distended but bowel sounds are active. Mild diffuse tenderness. No rebound or guarding Extremities-improving right lower extremity cellulitis Neuro-cranial nerves II through XII intact, motor and sensory function within normal limits, strength symmetrical but with generalized weakness, no focal deficits Psych-normal affect, normal mood Results & Data Results & Data Vital Signs (Past 12 Hours) Vital Signs Temp Pulse Resp BP Pulse Ox O2 Del Method 08/12/22 15:24 36.4 C L 67 18 108/60 92 Room Air 08/12/22 07:30 Room Air 08/12/22 11:26 36.5 C 81 18 111/54 L 94 Room Air 08/12/22 08:21 36.7 C 87 17 119/65 93 Room Air 08/12/22 04:35 37 C 96 H 16 119/63 96 Room Air Laboratory Results 08/12/22 06:26 08/12/22 14:54 PG Care Time/CCT Total # of Minutes Spent Total Time Spent with Patient: Total time spent is greater than 50% in coordination of care (as documented) at patient's floor/unit and/or counseling patient: Coding Level of Care Code 78026 SUB INP/OBS CARE 350MIN Diagnoses Cellulitis of right leg L03.115 Adenocarcinoma carcinomatosis C80.0 Hypocalcemia E83.51 SVT (supraventricular tachycardia) I47.1 Paralytic ileus of large intestine K56.0 Antineoplastic chemotherapy induced pancytopenia D61.810; T45.1X5A Neutropenia D70.9 Hypothyroidism E03.9 Post-polio syndrome G14 Candidiasis of mouth and esophagus B37.81; B37.0 History of DVT (deep vein thrombosis) Z86.718 Severe protein-calorie malnutrition E43 DVT prophylaxis Z29.9 Vitamin D deficiency E55.9 Hypophosphatemia E83.39 Acute metabolic encephalopathy G93.41 Urinary retention R33.9
[2022-08-12] MEDS: MELATONIN 3 MG TAB PO SCH (21:32)
[2022-08-12] MEDS: DOCUSATE SODIUM 100 MG CAP PO SCH (21:38)
[2022-08-12] MEDS: MIRTAZAPINE TAB 15 MG TAB PO SCH (21:40)
[2022-08-12] MEDS: POLYETHYLENE (MIRALAX) 17 GM PACK PO SCH (21:42)
[2022-08-13] MEDS: LEVOTHYROXINE SODIUM 100 MCG TABLET PO SCH (06:19)
[2022-08-13 07:23] LABS: Hematocrit (blood only) 27.2 % (42.0-52.0); Mean Corpuscular Hemoglobin 29.5 pg (25.0-34.0); Mean Corpuscular Hgb Conc 33.1 g/dL (32.0-36.0); Mean Corpuscular Volume 89.2 fL (80.0-100.0); Mean Platelet Volume 10.5 fL (9.4-12.4); Platelet Count 292 K/uL (130-400); RDW Coefficient of Variation 16.1 % (11.5-14.5); RDW Standard Deviation 47.8 fL (36.4-46.3); Red Blood Count 3.05 M/uL (4.70-6.10); White Blood Count 10.03 K/ul (4.8-10.8)
[2022-08-13] MEDS: ACETAMINOPHEN 325 MG TAB PO PRN ×2 (07:30→16:24)
[2022-08-13 07:38] LABS: BUN Creatinine Ratio 28.3 (10-20); Creatinine Clr Calc Pharmacy 92.9 ml/min; Est GFR (African American) 106.3 ml/min; Est GFR (Non-African American) 91.7 ml/min; Potassium 3.8 mmol/L (3.5-5.1)
[2022-08-13 07:46] LABS: Basophils # (auto) 0.04 K/uL (0-0.2); Basophils % (auto) 0.4 %; Eosinophils # (auto) 0.03 K/uL (0-0.50); Eosinophils % (auto) 0.3 %; Immature Granulocytes # (auto) 0.66 K/uL (0.01-0.20); Immature Granulocytes % (auto) 6.6 %; Lymphocytes # (auto) 0.94 K/uL (1.2-3.4); Lymphocytes % (auto) 9.4 %; Monocytes # (auto) 1.46 K/uL (0.11-0.59); Monocytes % (auto) 14.6 %; Neutrophils % (auto) 68.7 %
[2022-08-13] MEDS ORDERED: ERGOCALCIFEROL 50,000 UNITS 1250 MCG CAP PO ONE (08:45)
[2022-08-13] MEDS ORDERED: STAT IV STA (08:47)
--- NOTE | 2022-08-13 08:47 | Nephrology Progress Note ---
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 Wiseman was evaluated in his hospital room this morning. He c/o discomfort from recently having his Monzon catheter changed Review of Systems Constitutional: no fever Eyes: no problem reported Ear, Nose, Mouth, Throat: no problem reported Respiratory: no dyspnea Cardiovascular: no chest pain Gastrointestinal: no abdominal pain Neurologic: + generalized weakness Physical Exam Constitutional: + ill appearing and + thin Eyes: PERRL, conjunctivae normal, anicteric sclerae ENMT: external ear and nose normal, oropharynx normal Neck: trachea midline, no thyromegaly Respiratory: normal respiratory effort, lungs clear to auscultation Cardiovascular: Rate/Rhythm: regular rate and regular rhythm Extremities: + edema (1+ swelling R foot and ankle) Gastrointestinal (Abdomen): Inspection/Auscultation: + hypoactive bowel sounds Percussion/Palpation: abdomen nontender and no guarding Results & Data Vital Signs (Past 12 Hours) Vital Signs Temp Pulse Pulse Resp BP BP Pulse Ox 08/13/22 08:08 36.9 C 87 18 103/60 91 08/13/22 07:00 85 08/13/22 04:45 36.6 C 91 H 20 120/66 93 08/12/22 23:50 36.9 C 90 18 119/61 93 O2 Del Method 08/13/22 08:08 Room Air 08/13/22 07:00 08/13/22 04:45 Room Air 08/12/22 23:50 Room Air Laboratory Results Laboratory Tests 08/11/22 08/13/22 08/13/22 08:37 06:45 06:45 WBC 10.03 Hgb 9.0 L Hct 27.2 L Plt Count 292 Sodium 141 Potassium 3.8 Chloride 112 H Carbon Dioxide 25 BUN 17 Creatinine 0.60 Glucose 97 Calcium 7.0 L Albumin 2.4 L 25-OH Vitamin D Total 08/13/22 06:45 WBC Hgb Hct Plt Count Sodium Potassium Chloride Carbon Dioxide BUN Creatinine Glucose Calcium Albumin 25-OH Vitamin D Total 26.4 L PG Care Time/CCT Total # of Minutes Spent Total Time Spent with Patient: Total time spent is greater than 50% in coordination of care (as documented) at patient's floor/unit and/or counseling patient: Coding Level of Care Code 98977 SUB INP/OBS CARE 3/50MIN Diagnoses Hypocalcemia E83.51 Vitamin D deficiency E55.9 Primary pancreatic cancer with metastasis to other site C25.9 Adenocarcinoma carcinomatosis C80.0
[2022-08-13] MEDS ORDERED: CALCIUM GLUCONATE 10% 2,000 MG in DEXTROSE 5% 50 ML IV ONE (09:00)
[2022-08-13] MEDS: CEROVITE ADV FORMULA TAB PO SCH (09:12)
[2022-08-13] MEDS: PANTOprazole 40 MG TAB PO SCH (09:12)
[2022-08-13] MEDS: ERGOCALCIFEROL 50,000 UNITS 1250 MCG CAP PO SCH (09:12)
[2022-08-13] MEDS: POT PHOSPHATE MONOBASIC W/ SOD TAB PO SCH ×4 (09:13→22:07)
[2022-08-13] MEDS: POTASSIUM CHLORIDE CRTAB 20 MEQ TABCR PO SCH ×2 (09:14→22:06)
[2022-08-13] MEDS: cephALEXin 500 MG CAP PO SCH ×3 (09:14→22:27)
[2022-08-13] MEDS: CALCIUM CARBONATE 500 MG CHEWABLE TAB PO SCH ×4 (09:14→22:02)
[2022-08-13] MEDS: DOXYCYCLINE HYCLATE 100 MG CAP PO SCH ×2 (09:15→22:28)
[2022-08-13] MEDS: DOCUSATE SODIUM 100 MG CAP PO SCH ×2 (09:15→22:28)
[2022-08-13] MEDS: NYSTATIN SUSP 500,000 U/5 ML UDC PO SCH ×4 (09:15→22:03)
[2022-08-13] MEDS: SUCRALFATE 1 GM/10 ML UDC PO SCH ×4 (09:15→22:04)
[2022-08-13] MEDS: FIRST - Mouthwash BLM 119 ML PO SCH ×4 (09:16→22:05)
[2022-08-13] MEDS: ENOXAPARIN INJ 40 MG/0.4 ML SYR SQ SCH (09:16)
[2022-08-13] MEDS: POLYETHYLENE (MIRALAX) 17 GM PACK PO SCH ×2 (09:16→22:28)
[2022-08-13] MEDS: FUROSEMIDE 40 MG TAB PO SCH (12:38)
--- NOTE | 2022-08-13 13:18 | Urology Consultation ---
Date of Consultation August 13, 2022 Assessment & Plan (1) Urinary retention: Plan 87-year-old male with a history of suspected metastatic pancreatic cancer admitted for weakness. Has been dealing with urinary retention and a catheter was removed and attempted to be replaced by nursing unsuccessfully. Urology consulted. The patient was prepped and draped under sterile conditions. An 18 [place] coud catheter was placed without difficulty and a small return of clear yellow urine. Balloon was inflated with 10 cc of sterile water. The catheter was flushed to ensure patency. Recommend discontinuing bladder scans as they will be inaccurate as they will waste picker his abdominal ascites Monzon catheter management per primary team. They can either perform a void trial prior to discharge or he can be seen in urology clinic for this. Recommend one-time dose of Bactrim or ceftriaxone for manipulation as he is under caution for neutropenia Recommend Ditropan immediate release 5 mg 3 times daily for bladder spasms. Typically try to avoid this in a patient of his age but he has significant discomfort from the catheter. Watch for constipation or change in mental status Urology to sign off History of Present Illness Reason for Consultation: Urinary retention, difficult Monzon placement Attending Physician: Tyler Morgan MD History of Present Illness 87-year-old male currently admitted due to weakness. He has presumed metastatic pancreatic cancer. On admission I independently reviewed his CT scan which did show significant abdominal ascites. There were no abnormal findings. He had a Monzon catheter placed due to retention. He had been having some bladder spasms and bladder scans have been persistently high (these were likely false positives due to abdominal ascites) and a catheter was removed and then attempted to be replaced unsuccessfully. Urology was consulted. Patient reports BPH and was taking saw palmetto up until a month ago. He has also had penile edema since 08/07/2022. He denies any penile pain. He does report being circumcised. Allergies Allergy/AdvReac Type Severity Reaction Status Date / Time No Known Allergies Allergy Verified 08/04/22 19:07 Home Medications Medication Instructions Recorded Confirmed Type cholecalciferol (vitamin D3) 50 50 mcg PO DAILY 02/18/21 08/04/22 History mcg (2,000 unit) capsule calcium carbonate 550 mg-magnesium 2 tab PO Q4H PRN Acid Reflux 06/15/22 08/04/22 History hydroxide 110 mg chewable tablet levothyroxine 100 mcg tablet 100 mcg PO QAM 06/15/22 08/04/22 History psyllium husk 3.4 gram/5.4 gram 1 tbsp PO BID PRN Constipation 06/16/22 08/04/22 History oral powder (Metamucil) acetaminophen 325 mg tablet 325 mg PO QID PRN Pain 07/13/22 08/04/22 History (Tylenol) lidocaine-prilocaine 2.5 %-2.5 % 1 applic topical DIRECTED PRN 08/04/22 08/04/22 History topical cream PRIOR TO PROCEDURES loperamide 2 mg capsule 2 mg PO DIRECTED PRN Diarrhea 08/04/22 08/04/22 History pkythenamhaq-dwdtnuba-lqiqnf 1 tab PO DAILY 08/04/22 08/04/22 History tablet (Multivitamin 50 Plus tablet) ondansetron HCl 8 mg tablet 8 mg PO Q8H PRN NAUSEA/VOMITING 08/04/22 08/04/22 History oxycodone 5 mg tablet 5 mg PO .Q4-6H PRN Pain 08/04/22 08/04/22 History pantoprazole 40 mg tablet,delayed 40 mg PO HS 08/04/22 08/04/22 History release prochlorperazine maleate 10 mg 10 mg PO Q6H PRN NAUSEA/VOMITING 08/04/22 08/04/22 History tablet Patient History Medical History Acid reflux Uses PRN Rolaids 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, 'working diagnosis continues to be metastatic prostate ca' Anemia, mild DVT (deep venous thrombosis) History of, due to prolonged sitting, 1969's > resolved Dysphagia No recent mention of dysphagia in past several PCP notes History of COVID-summer > very mild symptoms Hoarseness, chronic Hyperlipidemia Resolved per pt HLD per 02/2022 PCP note - recommend statin but patient defers at this time Hypothyroidism Mild bibasilar atelectasis Per recent CT on 06/10/22 per pt PAC (premature atrial contraction) Post-polio syndrome Chronic right leg weakness per records Per PCP records- "PT for post polio and arranged for balance" Prediabetes TIA (transient ischemic attack) Pt denies - no mention of TIA in recent PCP notes Surgical History H/O hand surgery right H/O umbilical hernia repair (06/18/22) Diagnostic Laparoscopy, Peritoneal Biopsy, Omentum Biopsy, Abdominal Wall Biopsy, Umbilical Hernia Repair by 06/18/22; GA MAC #4, ETT #7.5, Gr View 2 History of biopsy (06/18/22) Diagnostic Laparoscopy, Peritoneal Biopsy, Omentum Biopsy, Abdominal Wall Biopsy, Umbilical Hernia Repair by 06/18/22 History of cataract surgery bilat History of colonoscopy History of tooth extraction History of total left hip replacement Intestinal obstruction 1961 > with surgical repair Port-A-Cath in place (07/16/22) Insertion Access Port in Left Subclavian with Fluoroscopy - Will Joshua, S/P ankle arthrodesis S/P appendectomy S/P hernia repair S/P tonsillectomy and adenoidectomy Family History Father Coronary heart disease Hypoplastic anemia Myocardial infarction Nephrolithiasis Heart disease Mother Hypothyroidism Sister Hypothyroidism Colorectal cancer Son Marfan syndrome Grandmother Cancer Uncle Heart disease Denies family history of Ovarian cancer Prostate cancer Breast cancer Social History Smoking Status: Never smoker Tobacco Type: Pipe Age Started Using Tobacco: 19; Age Quit Using Tobacco: 45; packs per day: 2; Cigarettes Per Day: two pipe fulls a day; Second Hand Exposure: No; Hx Alcohol Use: No Hx Substance Use: No Preferred Language: Welsh Communication Ability: Effective Visual Impairment: Limited Hearing Ability: Use of Hearing Aid Director Of [employer] Required: No Beliefs That Will Affect Care: None marital status: Current Living Situation: Spouse Current Living Situation Comment: home w spouse current occupational status: retired current occupation: professor at [employer], Emeritus Professor How many Children do You have: 2 Other Information That Helps Us Care for You: No Feels Safe at Home: Yes Safety Concerns: Feels Safe At This Time Childhood Exposure to Second-Hand Smoke: Yes caffeine: Yes (1 coffee per day) during the past year weight has: decreased > 10 lbs Dental Care, Regularly: Yes Physical Activity Frequency: 1-2 Times per Week Seatbelt Use: always Sunscreen Use: No Assistive Devices: Glasses and Walker Review of Systems Review of Systems: 14 point review of systems negative outside of what is listed above in HPI Physical Exam Physical Exam: General: Alert and oriented, no acute distress HEENT: Normocephalic, mucous membranes moist Cardiovascular: Regular rate Pulmonary: Nonlabored respirations Abdomen: Nondistended : Penile shaft edema with an orthotopic meatus. No erythema or tenderness to palpation. Extremities: Moves all 4 spontaneously Neuro: No gross deficits Skin: Warm, dry, no rashes noted Results & Data Vital Signs (Past 12 Hours) Vital Signs Temp Pulse Pulse Resp BP BP Pulse Ox 08/13/22 11:13 36.5 C 80 18 114/65 92 08/13/22 09:30 08/13/22 08:08 36.9 C 87 18 103/60 91 08/13/22 07:00 85 08/13/22 04:45 36.6 C 91 H 20 120/66 93 O2 Del Method 08/13/22 11:13 Room Air 08/13/22 09:30 Room Air 08/13/22 08:08 Room Air 08/13/22 07:00 08/13/22 04:45 Room Air PG Care Time/CCT Total # of Minutes Spent Total Time Spent with Patient: Total time spent is greater than 50% in coordination of care (as documented) at patient's floor/unit and/or counseling patient: Coding Level of Care Code 18932 INT INP/OBS CARE 2/55MIN Diagnoses Urinary retention R33.9
[2022-08-13] MEDS: oxyBUTYnin chloride 5 MG TAB PO SCH ×2 (14:19→22:27)
--- NOTE | 2022-08-13 15:31 | Hospitalist Progress Note ---
Date of Service August 13, 2022 Assessment & Plan (1) Cellulitis of right leg: Plan: Improving. Treated with intravenous vancomycin on admission and now transitioned to oral Keflex and doxycycline. Antibiotic day 10 . Blood cultures negative. 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 There has been progression of disease as expected. Follows with Dr Arroyo[facility]. Recently initiated gemcitabine and abraxane. Last chemo was 07/31/22. (3) Hypocalcemia: Plan: Continue oral and IV calcium supplementation and oral vitamin D as ordered by nephrology. Appreciate nephrology consultation and recommendations. Serial labs. (4) SVT (supraventricular tachycardia): Plan: Several episodes of paroxysmal SVT noted on telemetry strips this admission. Asymptomatic. Considering beta-afshin therapy. Cardiac echo reveals preserved left ventricular systolic function, no significant valvular abnormalities (5) Paralytic ileus of large intestine: Plan: Bowel sounds are now active and abdominal distention has lessened. Continue bowel regimen with MiraLAX and Colace. KUB negative for obstruction. (6) Antineoplastic chemotherapy induced pancytopenia: Plan: resolved. Serial labs (7) Neutropenia: Plan: 2nd to recent chemotherapy for stage 4 pancreatic ca . Resolved. (8) Hypothyroidism: Plan: TSH 05/2022 wnl . 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 Supportive care (10) Candidiasis of mouth and esophagus: Plan: Resolved with nystatin swish and swallow (11) History of DVT (deep vein thrombosis): Plan: lovenox 40mg daily (12) Severe protein-calorie malnutrition: Plan: Per [place] criteria. Ileus has resolved and diet has been advanced. (13) DVT prophylaxis: Plan: lovenox 40mg daily (14) Vitamin D deficiency: Plan: Supplementation ordered. (15) Hypophosphatemia: Plan: Corrected with parenteral phosphorus replacement (16) Acute metabolic encephalopathy: Plan: Present on admission. Now resolved. Head CT scan negative for metastatic disease. Resting better with Remeron and melatonin (17) Urinary retention: Plan: likely 2nd to BPH. Monzon placed on 08/08/22, subsequently removed, then needed to be replaced today, August 13, due to recurrent urinary retention. Monzon catheter will remain in place for now Plan OT and PT recommend SNF placement. Pending. Case management involved. Admission and Anticipated Discharge Date Admission Date: August 04, 2022 Subjective The patient required urology to place a Monzon catheter due to recurrent urinary retention. He has multiple reasons to have peripheral edema, primarily his stage IV pancreatic carcinoma, but Lasix ordered to see if this will help. Calcium remains low but overall improvement since admission. MiraLAX and Colace have helped with the abdominal distention that may have been partly due to constipation. Ileus appears to have resolved. He remains on Tums and vitamin D. He is also on Keflex and doxycycline. Review of Systems Review of Systems: Constitutional-no fever or chills ENT-no blurred vision, no double vision, no epistaxis, no sore throat Respiratory-no cough, no wheezing, no shortness of breath Cardiac-no palpitations, no chest pain, no syncope GI-no nausea, vomiting, diarrhea, melena, hematochezia -no urinary retention, no urinary incontinence, no dysuria, no hematuria Musculoskeletal-no joint pain, no muscle tenderness Skin-no bruising, no rashes, no pruritus Neuro-no isolated weakness, no paresthesia, no weakness Psych-no depression, no anxiety Physical Exam Physical Exam: General-alert and oriented x3, no fevers, no chills HEENT-head atraumatic and normocephalic, pupils equal and reactive to light, extraocular muscles intact Neck-no lymphadenopathy or thyromegaly, trachea midline Chest-clear to auscultation percussion. No rales wheezing or rhonchi Cardiac-regular rate and rhythm, normal S1 and S2 Abdomen-distended but bowel sounds are active. Mild diffuse tenderness. No rebound or guarding Extremities-improving right lower extremity cellulitis . Chronic appearing bilateral lower extremity edema GUedematous scrotum. Monzon catheter is now in place Neuro-cranial nerves II through XII intact, motor and sensory function within normal limits, strength symmetrical but with generalized weakness, no focal deficits Psych-normal affect, normal mood Results & Data Results & Data Vital Signs (Past 12 Hours) Vital Signs Temp Pulse Pulse Resp BP BP Pulse Ox 08/13/22 15:00 79 08/13/22 14:39 37.2 C 79 18 112/63 95 08/13/22 11:13 36.5 C 80 18 114/65 92 08/13/22 09:30 08/13/22 08:08 36.9 C 87 18 103/60 91 08/13/22 07:00 85 08/13/22 04:45 36.6 C 91 H 20 120/66 93 O2 Del Method 08/13/22 15:00 08/13/22 14:39 Room Air 08/13/22 11:13 Room Air 08/13/22 09:30 Room Air 08/13/22 08:08 Room Air 08/13/22 07:00 08/13/22 04:45 Room Air Laboratory Results 08/13/22 06:45 08/13/22 06:45 PG Care Time/CCT Total # of Minutes Spent Total Time Spent with Patient: Total time spent is greater than 50% in coordination of care (as documented) at patient's floor/unit and/or counseling patient: Coding Level of Care Code 57092 SUB INP/OBS CARE 3/50MIN Diagnoses Cellulitis of right leg L03.115 Adenocarcinoma carcinomatosis C80.0 Hypocalcemia E83.51 SVT (supraventricular tachycardia) I47.1 Paralytic ileus of large intestine K56.0 Antineoplastic chemotherapy induced pancytopenia D61.810; T45.1X5A Neutropenia D70.9 Hypothyroidism E03.9 Post-polio syndrome G14 Candidiasis of mouth and esophagus B37.81; B37.0 History of DVT (deep vein thrombosis) Z86.718 Severe protein-calorie malnutrition E43 DVT prophylaxis Z29.9 Vitamin D deficiency E55.9 Hypophosphatemia E83.39 Acute metabolic encephalopathy G93.41 Urinary retention R33.9
[2022-08-13] MEDS: MELATONIN 3 MG TAB PO SCH (22:02)
[2022-08-13] MEDS: MIRTAZAPINE TAB 15 MG TAB PO SCH (22:06)
[2022-08-14] MEDS: LEVOTHYROXINE SODIUM 100 MCG TABLET PO SCH (05:57)
[2022-08-14 06:38] LABS: Basophils # (auto) 0.05 K/uL (0-0.2); Basophils % (auto) 0.4 %; Eosinophils # (auto) 0.04 K/uL (0-0.50); Eosinophils % (auto) 0.3 %; Hematocrit (blood only) 27.7 % (42.0-52.0); Hemoglobin 9.2 g/dl (14.0-18.0); Immature Granulocytes # (auto) 0.55 K/uL (0.01-0.20); Immature Granulocytes % (auto) 4.8 %; Lymphocytes # (auto) 1.03 K/uL (1.2-3.4); Lymphocytes % (auto) 8.9 %; Mean Corpuscular Hemoglobin 29.7 pg (25.0-34.0); Mean Corpuscular Hgb Conc 33.2 g/dL (32.0-36.0); Mean Corpuscular Volume 89.4 fL (80.0-100.0); Mean Platelet Volume 10.7 fL (9.4-12.4); Monocytes # (auto) 1.59 K/uL (0.11-0.59); Monocytes % (auto) 13.8 %; Neutrophils # (auto) 8.25 K/uL (1.40-6.50); Neutrophils % (auto) 71.8 %; Platelet Count 321 K/uL (130-400); RDW Coefficient of Variation 16.7 % (11.5-14.5); RDW Standard Deviation 49.1 fL (36.4-46.3); White Blood Count 11.51 K/ul (4.8-10.8)
[2022-08-14 06:50] LABS: BUN Creatinine Ratio 25.8 (10-20); Calcium 7.1 mg/dl (8.6-10.3); Creatinine Clr Calc Pharmacy 89.9 ml/min; Est GFR (African American) 104.8 ml/min; Est GFR (Non-African American) 90.5 ml/min; Phosphorus 3.1 mg/dl (2.5-4.9)
[2022-08-14] MEDS: ERGOCALCIFEROL 50,000 UNITS 1250 MCG CAP PO SCH ×2 (08:22→13:16)
[2022-08-14] MEDS: POTASSIUM CHLORIDE CRTAB 20 MEQ TABCR PO SCH (08:23)
[2022-08-14] MEDS: POT PHOSPHATE MONOBASIC W/ SOD TAB PO SCH ×4 (08:24→20:20)
[2022-08-14] MEDS: CEROVITE ADV FORMULA TAB PO SCH (08:24)
[2022-08-14] MEDS: POLYETHYLENE (MIRALAX) 17 GM PACK PO SCH ×2 (08:25→20:22)
[2022-08-14] MEDS: PANTOprazole 40 MG TAB PO SCH (08:25)
[2022-08-14] MEDS: oxyBUTYnin chloride 5 MG TAB PO SCH ×3 (08:26→20:23)
[2022-08-14] MEDS: FUROSEMIDE 40 MG TAB PO SCH (08:26)
[2022-08-14] MEDS: CALCIUM CARBONATE 500 MG CHEWABLE TAB PO SCH ×4 (08:27→20:21)
[2022-08-14] MEDS: DOCUSATE SODIUM 100 MG CAP PO SCH ×2 (08:28→20:23)
[2022-08-14] MEDS: cephALEXin 500 MG CAP PO SCH ×3 (08:28→20:22)
[2022-08-14] MEDS: ENOXAPARIN INJ 40 MG/0.4 ML SYR SQ SCH (08:28)
[2022-08-14] MEDS: FIRST - Mouthwash BLM 119 ML PO SCH ×4 (08:30→20:19)
[2022-08-14] MEDS: NYSTATIN SUSP 500,000 U/5 ML UDC PO SCH ×4 (08:30→20:20)
[2022-08-14] MEDS: SUCRALFATE 1 GM/10 ML UDC PO SCH ×4 (08:30→20:20)
[2022-08-14] MEDS: DOXYCYCLINE HYCLATE 100 MG CAP PO SCH ×2 (09:00→21:33)
--- NOTE | 2022-08-14 12:42 | Nephrology Progress Note ---
Date of Service August 14, 2022 Assessment & Plan (1) Hypocalcemia: Plan: * Hypocalcemia likely on the basis of vitamin D deficiency * PTH is appropriately elevated * No evidence of osteoblastic metastasis on imaging * Corrected Ca ~ 8.5 * Continue CaCO3 1000 mg QID * Monitor serum Ca * No further Nephrology evaluation indicated at this time. Will sign off. Please call if further assistance is needed (2) Vitamin D deficiency: Plan: * Vitamins D has corrected * Will change from Ergocalciferol to OTC vitamin D 2,000 units daily (3) Primary pancreatic cancer with metastasis to other site: (4) Adenocarcinoma carcinomatosis: Admission and Anticipated Discharge Date Admission Date: August 04, 2022 Subjective Mr. Wiseman was evaluated in his hospital room this morning. He c/o weakness but voiced no new medical concerns Review of Systems Constitutional: no fever Eyes: no problem reported Ear, Nose, Mouth, Throat: no problem reported Respiratory: no dyspnea Cardiovascular: no chest pain Gastrointestinal: no abdominal pain Genitourinary: no dysuria or no urinary hesitancy Neurologic: + generalized weakness Physical Exam Constitutional: + ill appearing and + thin Eyes: PERRL, conjunctivae normal, anicteric sclerae ENMT: external ear and nose normal, oropharynx normal Neck: trachea midline, no thyromegaly Respiratory: normal respiratory effort, lungs clear to auscultation Cardiovascular: Rate/Rhythm: regular rate and regular rhythm Extremities: + edema (1+ swelling R foot and ankle) Gastrointestinal (Abdomen): Inspection/Auscultation: + hypoactive bowel sounds Percussion/Palpation: abdomen nontender and no guarding Results & Data Vital Signs (Past 12 Hours) Vital Signs Temp Pulse Pulse Resp BP Pulse Ox O2 Del Method 08/14/22 11:47 36.6 C 84 16 121/57 L 91 Room Air 08/14/22 07:33 36.5 C 91 H 18 129/60 91 Room Air 08/14/22 07:08 88 08/14/22 04:38 36.6 C 79 117/66 93 Room Air Laboratory Results Laboratory Tests 08/14/22 08/14/22 08/14/22 05:50 05:50 05:50 WBC 11.51 H Hgb 9.2 L Hct 27.7 L Plt Count 321 Sodium 140 Potassium 4.0 Chloride 111 H Carbon Dioxide 26 BUN 16 Creatinine 0.62 Calcium 7.1 L 25-OH Vitamin D Total 38.1 PG Care Time/CCT Total # of Minutes Spent Total Time Spent with Patient: Total time spent is greater than 50% in coordination of care (as documented) at patient's floor/unit and/or counseling patient: Coding Level of Care Code 12908 SUB INP/OBS CARE 3/50MIN Diagnoses Hypocalcemia E83.51 Vitamin D deficiency E55.9 Primary pancreatic cancer with metastasis to other site C25.9 Adenocarcinoma carcinomatosis C80.0
--- NOTE | 2022-08-14 15:57 | Hospitalist Progress Note ---
Date of Service August 14, 2022 Assessment & Plan (1) Cellulitis of right leg: Plan: Improved. Treated with intravenous vancomycin on admission and now has been transitioned to oral Keflex and doxycycline. Blood cultures negative. 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 There has been progression of disease as expected. Follows with Dr Arroyo, [facility]. Recently initiated gemcitabine and abraxane. Last chemo was 07/31/22 . Advanced pancreatic cancer is likely because of peripheral edema (3) Hypocalcemia: Plan: Continue oral and IV calcium supplementation and oral vitamin D as ordered by nephrology. Appreciate nephrology consultation and recommendations. Serial labs. (4) SVT (supraventricular tachycardia): Plan: Several episodes of paroxysmal SVT noted on telemetry strips this admission. Asymptomatic. Considering beta-afshin therapy if this recurs. Cardiac echo reveals preserved left ventricular systolic function, no significant valvular abnormalities (5) Paralytic ileus of large intestine: Plan: Bowel sounds are now active and abdominal distention has lessened. Continue bowel regimen with MiraLAX and Colace. KUB negative for obstruction. (6) Antineoplastic chemotherapy induced pancytopenia: Plan: resolved. Serial labs (7) Neutropenia: Plan: 2nd to recent chemotherapy for stage 4 pancreatic ca . Resolved. (8) Hypothyroidism: Plan: TSH 05/2022 wnl . 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 Supportive care (10) Candidiasis of mouth and esophagus: Plan: Resolved with nystatin swish and swallow (11) History of DVT (deep vein thrombosis): Plan: lovenox 40mg daily (12) Severe protein-calorie malnutrition: Plan: Per [place] criteria. Ileus has resolved and diet has been advanced. (13) DVT prophylaxis: Plan: lovenox 40mg daily (14) Vitamin D deficiency: Plan: Supplementation ordered. (15) Hypophosphatemia: Plan: Corrected with parenteral phosphorus replacement (16) Acute metabolic encephalopathy: Plan: Present on admission. Now resolved. Head CT scan negative for metastatic disease. Resting better with Remeron and melatonin (17) Urinary retention: Plan: likely 2nd to BPH. Monzon placed on 08/08/22, subsequently removed, then needed to be replaced on August 13, due to recurrent urinary retention. Monzon catheter will remain in place for now Plan OT and PT recommend SNF placement. Pending. Case management involved. Admission and Anticipated Discharge Date Admission Date: August 04, 2022 Subjective Alert and oriented. is at the bedside. He is having trouble with the potassium tablets which have been discontinued. Oral Lasix has not done much for the peripheral edema which is probably going to be chronic and related to the stage IV pancreatic cancer. Bowel movements have become more regular with addition of MiraLAX and Colace. Ileus has resolved. Awaiting SNF placement Review of Systems Review of Systems: Constitutional-no fever or chills ENT-no blurred vision, no double vision, no epistaxis, no sore throat Respiratory-no cough, no wheezing, no shortness of breath Cardiac-no palpitations, no chest pain, no syncope GI-no nausea, vomiting, diarrhea, melena, hematochezia -no urinary retention, no urinary incontinence, no dysuria, no hematuria Musculoskeletal-no joint pain, no muscle tenderness Skin-no bruising, no rashes, no pruritus Neuro-no isolated weakness, no paresthesia, no weakness Psych-no depression, no anxiety Physical Exam Physical Exam: General-alert and oriented x3, no fevers, no chills HEENT-head atraumatic and normocephalic, pupils equal and reactive to light, extraocular muscles intact Neck-no lymphadenopathy or thyromegaly, trachea midline Chest-clear to auscultation percussion. No rales wheezing or rhonchi Cardiac-regular rate and rhythm, normal S1 and S2 Abdomen-distended but bowel sounds are active. Mild diffuse tenderness. No rebound or guarding Extremities-improving right lower extremity cellulitis . Chronic appearing bilateral lower extremity edema GUedematous scrotum. Monzon catheter is now in place Neuro-cranial nerves II through XII intact, motor and sensory function within normal limits, strength symmetrical but with generalized weakness, no focal deficits Psych-normal affect, normal mood Results & Data Results & Data Vital Signs (Past 12 Hours) Vital Signs Temp Pulse Pulse Resp BP Pulse Ox O2 Del Method 08/14/22 15:37 36.7 C 84 20 120/61 94 Room Air 08/14/22 11:47 36.6 C 84 16 121/57 L 91 Room Air 08/14/22 07:33 36.5 C 91 H 18 129/60 91 Room Air 08/14/22 07:08 88 08/14/22 04:38 36.6 C 79 117/66 93 Room Air Laboratory Results 08/14/22 05:50 08/14/22 05:50 PG Care Time/CCT Total # of Minutes Spent Total Time Spent with Patient: Total time spent is greater than 50% in coordination of care (as documented) at patient's floor/unit and/or counseling patient: Coding Level of Care Code 24324 SUB INP/OBS CARE 2/35MIN Diagnoses Cellulitis of right leg L03.115 Adenocarcinoma carcinomatosis C80.0 Hypocalcemia E83.51 SVT (supraventricular tachycardia) I47.1 Paralytic ileus of large intestine K56.0 Antineoplastic chemotherapy induced pancytopenia D61.810; T45.1X5A Neutropenia D70.9 Hypothyroidism E03.9 Post-polio syndrome G14 Candidiasis of mouth and esophagus B37.81; B37.0 History of DVT (deep vein thrombosis) Z86.718 Severe protein-calorie malnutrition E43 DVT prophylaxis Z29.9 Vitamin D deficiency E55.9 Hypophosphatemia E83.39 Acute metabolic encephalopathy G93.41 Urinary retention R33.9
[2022-08-14] MEDS: MELATONIN 3 MG TAB PO SCH (20:21)
[2022-08-14] MEDS: MIRTAZAPINE TAB 15 MG TAB PO SCH (20:21)
[2022-08-14] MEDS: HEPARIN 100 UNIT/ML 5ML FLUSH FLUSH PRN (20:31)
[2022-08-15] MEDS: LEVOTHYROXINE SODIUM 100 MCG TABLET PO SCH (05:42)
[2022-08-15] MEDS: DOXYCYCLINE HYCLATE 100 MG CAP PO SCH ×2 (10:04→20:59)
[2022-08-15] MEDS: cephALEXin 500 MG CAP PO SCH ×3 (10:05→20:54)
[2022-08-15] MEDS: POT PHOSPHATE MONOBASIC W/ SOD TAB PO SCH ×4 (10:07→20:54)
[2022-08-15] MEDS: NYSTATIN SUSP 500,000 U/5 ML UDC PO SCH (10:08)
[2022-08-15] MEDS: ENOXAPARIN INJ 40 MG/0.4 ML SYR SQ SCH (10:09)
[2022-08-15] MEDS: oxyBUTYnin chloride 5 MG TAB PO SCH ×3 (10:10→20:52)
[2022-08-15] MEDS: CEROVITE ADV FORMULA TAB PO SCH (10:10)
[2022-08-15] MEDS: PANTOprazole 40 MG TAB PO SCH (10:10)
[2022-08-15] MEDS: DOCUSATE SODIUM 100 MG CAP PO SCH ×2 (10:13→20:55)
[2022-08-15] MEDS: CALCIUM CARBONATE 500 MG CHEWABLE TAB PO SCH ×4 (10:14→20:55)
[2022-08-15] MEDS: ERGOCALCIFEROL 50,000 UNITS 1250 MCG CAP PO SCH (10:15)
[2022-08-15] MEDS: FIRST - Mouthwash BLM 119 ML PO SCH ×4 (10:16→20:51)
[2022-08-15] MEDS: FUROSEMIDE 40 MG TAB PO SCH (10:17)
[2022-08-15] MEDS: POLYETHYLENE (MIRALAX) 17 GM PACK PO SCH ×2 (10:18→20:54)
[2022-08-15] MEDS: SUCRALFATE 1 GM/10 ML UDC PO SCH ×4 (10:18→20:52)
--- NOTE | 2022-08-15 13:49 | Hospitalist Progress Note ---
Date of Service August 15, 2022 Assessment & Plan (1) Cellulitis of right leg: Plan: Improved. Treated with intravenous vancomycin on admission and now has been transitioned to oral Keflex and doxycycline. Blood cultures negative. 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 There has been progression of disease as expected. Follows with Dr Arroyo, [facility]. Recently initiated gemcitabine and abraxane. Last chemo was 07/31/22 . Advanced pancreatic cancer is likely because of persistent peripheral edema (3) Hypocalcemia: Plan: Continue oral and IV calcium supplementation and oral vitamin D as ordered by nephrology. Appreciate nephrology consultation and recommendations. Serial labs. (4) SVT (supraventricular tachycardia): Plan: Several episodes of paroxysmal SVT noted on telemetry strips this admission. Asymptomatic. Considering beta-afshin therapy if this recurs. Cardiac echo reveals preserved left ventricular systolic function, no significant valvular abnormalities (5) Paralytic ileus of large intestine: Plan: Bowel sounds are now active and abdominal distention has lessened. Continue bowel regimen with MiraLAX and Colace. KUB negative for obstruction. (6) Antineoplastic chemotherapy induced pancytopenia: Plan: resolved. Serial labs (7) Neutropenia: Plan: 2nd to recent chemotherapy for stage 4 pancreatic ca . Resolved. (8) Hypothyroidism: Plan: TSH 05/2022 wnl . 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 Supportive care (10) Candidiasis of mouth and esophagus: Plan: Resolved with nystatin swish and swallow (11) History of DVT (deep vein thrombosis): Plan: lovenox 40mg daily (12) Severe protein-calorie malnutrition: Plan: Per [place] criteria. Ileus has resolved and diet has been advanced. (13) DVT prophylaxis: Plan: lovenox 40mg daily (14) Vitamin D deficiency: Plan: Supplementation ordered. (15) Hypophosphatemia: Plan: Corrected with parenteral phosphorus replacement (16) Acute metabolic encephalopathy: Plan: Present on admission. Now resolved. Head CT scan negative for metastatic disease. Resting better with Remeron and melatonin (17) Urinary retention: Plan: likely 2nd to BPH. Monzon placed on 08/08/22, subsequently removed, then needed to be replaced on August 13, due to recurrent urinary retention. Monzon catheter will remain in place for now Plan OT and PT recommend SNF placement at discharge. Case management involved. Admission and Anticipated Discharge Date Admission Date: August 04, 2022 Subjective Alert and oriented. No new problems. Will commence lab testing daily again tomorrow, August 16. Review of Systems Review of Systems: Constitutional-no fever or chills ENT-no blurred vision, no double vision, no epistaxis, no sore throat Respiratory-no cough, no wheezing, no shortness of breath Cardiac-no palpitations, no chest pain, no syncope GI-no nausea, vomiting, diarrhea, melena, hematochezia -no urinary retention, no urinary incontinence, no dysuria, no hematuria Musculoskeletal-no joint pain, no muscle tenderness Skin-no bruising, no rashes, no pruritus Neuro-no isolated weakness, no paresthesia, no weakness Psych-no depression, no anxiety Physical Exam Physical Exam: General-alert and oriented x3, no fevers, no chills HEENT-head atraumatic and normocephalic, pupils equal and reactive to light, extraocular muscles intact Neck-no lymphadenopathy or thyromegaly, trachea midline Chest-clear to auscultation percussion. No rales wheezing or rhonchi Cardiac-regular rate and rhythm, normal S1 and S2 Abdomen-distended but bowel sounds are active. Mild diffuse tenderness. No rebound or guarding Extremities-improving right lower extremity cellulitis . Chronic appearing bilateral lower extremity edema GUedematous scrotum. Monzon catheter is now in place Neuro-cranial nerves II through XII intact, motor and sensory function within normal limits, strength symmetrical but with generalized weakness, no focal deficits Psych-normal affect, normal mood Results & Data Results & Data Vital Signs (Past 12 Hours) Vital Signs Temp Pulse Pulse Resp BP Pulse Ox O2 Del Method 08/15/22 11:41 36.6 C 76 18 122/52 L 93 Room Air 08/15/22 07:33 36.7 C 87 20 115/55 L 92 Room Air 08/15/22 07:31 85 Laboratory Results 08/14/22 05:50 08/14/22 05:50 PG Care Time/CCT Total # of Minutes Spent Total Time Spent with Patient: Total time spent is greater than 50% in coordination of care (as documented) at patient's floor/unit and/or counseling patient: Coding Level of Care Code 30416 SUB INP/OBS CARE 35MIN Diagnoses Cellulitis of right leg L03.115 Adenocarcinoma carcinomatosis C80.0 Hypocalcemia E83.51 SVT (supraventricular tachycardia) I47.1 Paralytic ileus of large intestine K56.0 Antineoplastic chemotherapy induced pancytopenia D61.810; T45.1X5A Neutropenia D70.9 Hypothyroidism E03.9 Post-polio syndrome G14 Candidiasis of mouth and esophagus B37.81; B37.0 History of DVT (deep vein thrombosis) Z86.718 Severe protein-calorie malnutrition E43 DVT prophylaxis Z29.9 Vitamin D deficiency E55.9 Hypophosphatemia E83.39 Acute metabolic encephalopathy G93.41 Urinary retention R33.9
[2022-08-15] MEDS: MIRTAZAPINE TAB 15 MG TAB PO SCH (20:51)
[2022-08-15] MEDS: MELATONIN 3 MG TAB PO SCH (20:53)
[2022-08-16] MEDS: LEVOTHYROXINE SODIUM 100 MCG TABLET PO SCH (05:35)
[2022-08-16] MEDS: CALCIUM CARBONATE 500 MG CHEWABLE TAB PO SCH ×4 (05:35→21:08)
[2022-08-16 06:02] LABS: Basophils # (auto) 0.05 K/uL (0-0.2); Basophils % (auto) 0.5 %; Eosinophils # (auto) 0.06 K/uL (0-0.50); Eosinophils % (auto) 0.5 %; Hematocrit (blood only) 25.9 % (42.0-52.0); Hemoglobin 8.7 g/dl (14.0-18.0); Immature Granulocytes # (auto) 0.38 K/uL (0.01-0.20); Immature Granulocytes % (auto) 3.4 %; Lymphocytes # (auto) 1.13 K/uL (1.2-3.4); Lymphocytes % (auto) 10.2 %; Mean Corpuscular Hemoglobin 30.2 pg (25.0-34.0); Mean Corpuscular Hgb Conc 33.6 g/dL (32.0-36.0); Mean Corpuscular Volume 89.9 fL (80.0-100.0); Mean Platelet Volume 10.2 fL (9.4-12.4); Monocytes # (auto) 1.54 K/uL (0.11-0.59); Monocytes % (auto) 13.9 %; Neutrophils % (auto) 71.5 %; Platelet Count 343 K/uL (130-400); RDW Coefficient of Variation 16.8 % (11.5-14.5); RDW Standard Deviation 49.1 fL (36.4-46.3); Red Blood Count 2.88 M/uL (4.70-6.10); White Blood Count 11.06 K/ul (4.8-10.8)
[2022-08-16 06:18] LABS: BUN Creatinine Ratio 22.6 (10-20); Calcium 7.1 mg/dl (8.6-10.3); Creatinine Clr Calc Pharmacy 89.9 ml/min; Est GFR (African American) 104.8 ml/min; Est GFR (Non-African American) 90.5 ml/min; Potassium 3.7 mmol/L (3.5-5.1)
[2022-08-16] MEDS: ENOXAPARIN INJ 40 MG/0.4 ML SYR SQ SCH (10:35)
[2022-08-16] MEDS: DOCUSATE SODIUM 100 MG CAP PO SCH ×2 (10:35→21:09)
[2022-08-16] MEDS: FIRST - Mouthwash BLM 119 ML PO SCH ×4 (10:36→21:09)
[2022-08-16] MEDS: FUROSEMIDE 40 MG TAB PO SCH (10:37)
[2022-08-16] MEDS: oxyBUTYnin chloride 5 MG TAB PO SCH ×3 (10:37→21:09)
[2022-08-16] MEDS: CEROVITE ADV FORMULA TAB PO SCH (10:37)
[2022-08-16] MEDS: SUCRALFATE 1 GM/10 ML UDC PO SCH ×4 (10:38→21:10)
[2022-08-16] MEDS: POT PHOSPHATE MONOBASIC W/ SOD TAB PO SCH ×4 (10:38→21:09)
[2022-08-16] MEDS: PANTOprazole 40 MG TAB PO SCH (10:38)
[2022-08-16] MEDS: POLYETHYLENE (MIRALAX) 17 GM PACK PO SCH ×2 (10:44→21:08)
[2022-08-16] MEDS: ERGOCALCIFEROL 50,000 UNITS 1250 MCG CAP PO SCH (10:49)
--- NOTE | 2022-08-16 12:27 | Hospitalist Progress Note ---
Date of Service August 16, 2022 Assessment & Plan (1) Cellulitis of right leg: Plan: Resolved. He has completed his course of oral antibiotic therapy. Antibiotics have been discontinued. 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 There has been progression of disease as expected. Follows with Dr Arroyo, [facility]. Recently initiated gemcitabine and abraxane. Last chemo was 07/31/22. Advanced pancreatic cancer is likely because of persistent peripheral edema (3) Hypocalcemia: Plan: Now stable but remains low. Continue oral replacement. Appreciate nephrology consultation and recommendations. Serial labs. (4) SVT (supraventricular tachycardia): Plan: Several episodes of paroxysmal SVT noted on telemetry strips this admission. Asymptomatic. Considering beta-afshin therapy if this recurs. Cardiac echo reveals preserved left ventricular systolic function, no significant valvular abnormalities (5) Paralytic ileus of large intestine: Plan: Bowel sounds are now active and abdominal distention has lessened. Continue bowel regimen with MiraLAX and Colace. KUB negative for obstruction. (6) Antineoplastic chemotherapy induced pancytopenia: Plan: resolved. Serial labs (7) Neutropenia: Plan: 2nd to recent chemotherapy for stage 4 pancreatic ca . Resolved. (8) Hypothyroidism: Plan: TSH 05/2022 wnl . 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 Supportive care (10) Candidiasis of mouth and esophagus: Plan: Resolved with nystatin swish and swallow (11) History of DVT (deep vein thrombosis): Plan: lovenox 40mg daily (12) Severe protein-calorie malnutrition: Plan: Per [place] criteria. Ileus has resolved and diet has been advanced. (13) DVT prophylaxis: Plan: lovenox 40mg daily (14) Vitamin D deficiency: Plan: Supplementation ordered. (15) Hypophosphatemia: Plan: Corrected with parenteral phosphorus replacement (16) Acute metabolic encephalopathy: Plan: Present on admission. Now resolved. Head CT scan negative for metastatic disease. Resting better with Remeron and melatonin (17) Urinary retention: Plan: likely 2nd to BPH. Monzon placed on 08/08/22, subsequently removed, then needed to be replaced on August 13, due to recurrent urinary retention. Monzon catheter will remain in place for now Plan OT and PT recommend SNF placement at discharge. Case management involved. Admission and Anticipated Discharge Date Admission Date: August 04, 2022 Subjective Stable overall. He has completed his oral antibiotic course. Calcium stable at 7.1. Afebrile with stable vital signs. Awaiting SNF placement at discharge Review of Systems Review of Systems: Constitutional-no fever or chills ENT-no blurred vision, no double vision, no epistaxis, no sore throat Respiratory-no cough, no wheezing, no shortness of breath Cardiac-no palpitations, no chest pain, no syncope GI-no nausea, vomiting, diarrhea, melena, hematochezia -no urinary retention, no urinary incontinence, no dysuria, no hematuria Musculoskeletal-no joint pain, no muscle tenderness Skin-no bruising, no rashes, no pruritus Neuro-no isolated weakness, no paresthesia, no weakness Psych-no depression, no anxiety Physical Exam Physical Exam: General-alert and oriented x3, no fevers, no chills HEENT-head atraumatic and normocephalic, pupils equal and reactive to light, extraocular muscles intact Neck-no lymphadenopathy or thyromegaly, trachea midline Chest-clear to auscultation percussion. No rales wheezing or rhonchi Cardiac-regular rate and rhythm, normal S1 and S2 Abdomen-distended but bowel sounds are active. Mild diffuse tenderness. No rebound or guarding Extremities-resolved right lower extremity cellulitis . Chronic appearing bilateral lower extremity edema GUedematous scrotum. Monzon catheter is now in place Neuro-cranial nerves II through XII intact, motor and sensory function within normal limits, strength symmetrical but with generalized weakness, no focal deficits Psych-normal affect, normal mood Results & Data Results & Data Vital Signs (Past 12 Hours) Vital Signs Temp Pulse Pulse Resp BP Pulse Ox O2 Del Method 08/16/22 09:00 Room Air 08/16/22 11:21 36.6 C 82 18 118/64 91 Room Air 08/16/22 08:19 36.7 C 88 18 129/56 L 92 Room Air 08/16/22 07:37 92 H 08/16/22 04:08 36.9 C 86 20 112/52 L 92 Room Air Laboratory Results 08/16/22 05:27 08/16/22 05:27 PG Care Time/CCT Total # of Minutes Spent Total Time Spent with Patient: Total time spent is greater than 50% in coordination of care (as documented) at patient's floor/unit and/or counseling patient: Coding Level of Care Code 82996 SUB INP/OBS CARE 2/35MIN Diagnoses Cellulitis of right leg L03.115 Adenocarcinoma carcinomatosis C80.0 Hypocalcemia E83.51 SVT (supraventricular tachycardia) I47.1 Paralytic ileus of large intestine K56.0 Antineoplastic chemotherapy induced pancytopenia D61.810; T45.1X5A Neutropenia D70.9 Hypothyroidism E03.9 Post-polio syndrome G14 Candidiasis of mouth and esophagus B37.81; B37.0 History of DVT (deep vein thrombosis) Z86.718 Severe protein-calorie malnutrition E43 DVT prophylaxis Z29.9 Vitamin D deficiency E55.9 Hypophosphatemia E83.39 Acute metabolic encephalopathy G93.41 Urinary retention R33.9
[2022-08-16] MEDS: MIRTAZAPINE TAB 15 MG TAB PO SCH (21:09)
[2022-08-16] MEDS: MELATONIN 3 MG TAB PO SCH (21:10)
[2022-08-17] MEDS: LEVOTHYROXINE SODIUM 100 MCG TABLET PO SCH (05:45)
[2022-08-17 08:01] LABS: Basophils # (auto) 0.06 K/uL (0-0.2); Basophils % (auto) 0.5 %; Eosinophils # (auto) 0.04 K/uL (0-0.50); Eosinophils % (auto) 0.3 %; Hematocrit (blood only) 24.8 % (42.0-52.0); Hemoglobin 8.3 g/dl (14.0-18.0); Immature Granulocytes # (auto) 0.27 K/uL (0.01-0.20); Immature Granulocytes % (auto) 2.3 %; Lymphocytes % (auto) 8.6 %; Mean Corpuscular Hemoglobin 29.9 pg (25.0-34.0); Mean Corpuscular Hgb Conc 33.5 g/dL (32.0-36.0); Mean Corpuscular Volume 89.2 fL (80.0-100.0); Mean Platelet Volume 10.5 fL (9.4-12.4); Monocytes # (auto) 1.48 K/uL (0.11-0.59); Monocytes % (auto) 12.7 %; Neutrophils % (auto) 75.6 %; Platelet Count 335 K/uL (130-400); RDW Coefficient of Variation 16.7 % (11.5-14.5); RDW Standard Deviation 48.4 fL (36.4-46.3); Red Blood Count 2.78 M/uL (4.70-6.10); White Blood Count 11.65 K/ul (4.8-10.8)
[2022-08-17 08:24] LABS: Calcium 7.1 mg/dl (8.6-10.3); Creatinine Clr Calc Pharmacy 85.8 ml/min; Est GFR (African American) 102.8 ml/min; Est GFR (Non-African American) 88.7 ml/min; Potassium 3.5 mmol/L (3.5-5.1)
[2022-08-17] MEDS: FIRST - Mouthwash BLM 119 ML PO SCH ×4 (09:00→22:13)
[2022-08-17] MEDS: CEROVITE ADV FORMULA TAB PO SCH (09:01)
[2022-08-17] MEDS: PANTOprazole 40 MG TAB PO SCH (09:01)
[2022-08-17] MEDS: oxyBUTYnin chloride 5 MG TAB PO SCH ×3 (09:01→22:13)
[2022-08-17] MEDS: SUCRALFATE 1 GM/10 ML UDC PO SCH ×4 (09:01→22:10)
[2022-08-17] MEDS: FUROSEMIDE 40 MG TAB PO SCH (09:01)
[2022-08-17] MEDS: ENOXAPARIN INJ 40 MG/0.4 ML SYR SQ SCH (09:02)
[2022-08-17] MEDS: POT PHOSPHATE MONOBASIC W/ SOD TAB PO SCH ×4 (09:02→22:12)
[2022-08-17] MEDS: DOCUSATE SODIUM 100 MG CAP PO SCH ×2 (09:02→22:12)
[2022-08-17] MEDS: CALCIUM CARBONATE 500 MG CHEWABLE TAB PO SCH ×4 (09:02→22:13)
[2022-08-17] MEDS: POLYETHYLENE (MIRALAX) 17 GM PACK PO SCH ×2 (09:02→22:13)
--- NOTE | 2022-08-17 14:21 | Hospitalist Progress Note ---
Date of Service August 17, 2022 Assessment & Plan (1) Cellulitis of right leg: Plan: Resolved. He has completed his course of oral antibiotic therapy. Antibiotics have been discontinued. 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 There has been progression of disease as expected. Follows with Dr Arroyo, [facility]. Recently initiated gemcitabine and abraxane. Last chemo was 07/31/22. Consult palliative care (3) Hypocalcemia: Plan: Now stable but remains low. Continue oral replacement. Appreciate nephrology consultation and recommendations. Serial labs. (4) SVT (supraventricular tachycardia): Plan: Several episodes of paroxysmal SVT noted on telemetry strips this admission. Asymptomatic. Considering beta-afshin therapy if this recurs. Cardiac echo reveals preserved left ventricular systolic function, no significant valvular abnormalities (5) Paralytic ileus of large intestine: Plan: Bowel sounds are now active and abdominal distention has lessened. Continue bowel regimen with MiraLAX and Colace. KUB negative for obstruction. Patient is moving bowels and is tolerating diet. (6) Antineoplastic chemotherapy induced pancytopenia: Plan: resolved. Serial labs (7) Neutropenia: Plan: 2nd to recent chemotherapy for stage 4 pancreatic ca . Resolved. (8) Hypothyroidism: Plan: TSH 05/2022 wnl . 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 Supportive care (10) Candidiasis of mouth and esophagus: Plan: Resolved with nystatin swish and swallow (11) History of DVT (deep vein thrombosis): Plan: lovenox 40mg daily (12) Severe protein-calorie malnutrition: Plan: Per [place] criteria. Ileus has resolved and diet has been advanced. (13) DVT prophylaxis: Plan: lovenox 40mg daily (14) Vitamin D deficiency: Plan: Supplementation ordered. (15) Hypophosphatemia: Plan: Corrected with parenteral phosphorus replacement (16) Acute metabolic encephalopathy: Plan: Present on admission. Now resolved. Head CT scan negative for metastatic disease. Resting better with Remeron and melatonin (17) Urinary retention: Plan: likely 2nd to BPH. Monzon placed on 08/08/22, subsequently removed, then needed to be replaced on August 13, due to recurrent urinary retention. Monzon catheter will remain in place for now Plan OT and PT recommend SNF placement at discharge. Case management involved. Patient will likely have a bed acceptance tomorrow. In the meantime, consulted palliative care Admission and Anticipated Discharge Date Admission Date: August 04, 2022 Subjective Patient feels well overall. Denies chest pain or shortness of breath. He is generally weak. Tolerating diet. Had a bowel movement yesterday. Patient does not remember talking to palliative care in the past. Review of Systems Review of Systems: All systems reviewed & are unremarkable except as noted in Subjective Physical Exam Physical Exam: General: Awake, conversant Heart: S1, S2/regular rate and rhythm, no murmur rubs or gallops Lungs: Clear to auscultation bilaterally. Normal effort Abdomen: nontender. distended abdomen. Positive bowel sounds Extremities: No clubbing/cyanosis. Chronic appearing bilateral lower extremity edema Behavior: Appropriate, cooperative Results & Data Results & Data Vital Signs (Past 12 Hours) Vital Signs Temp Pulse Pulse Resp BP Pulse Ox O2 Del Method 08/17/22 11:04 36.9 C 85 20 116/61 92 Room Air 08/17/22 07:57 36.6 C 98 H 20 135/62 92 Room Air 08/17/22 07:42 86 08/17/22 02:40 36.7 C 89 16 134/67 92 Room Air Laboratory Results Abnormal lab results 08/17/22 08/17/22 Range/Units 07:12 07:12 WBC 11.65 H (4.8-10.8) K/ul RBC 2.78 L (4.70-6.10) M/uL Hgb 8.3 L (14.0-18.0) g/dl Hct 24.8 L (42.0-52.0) % RDW Std Deviation 48.4 H (36.4-46.3) fL RDW Coeff of [place]ora 16.7 H (11.5-14.5) % Neut # (Auto) 8.80 H (1.40-6.50) K/uL Lymph # (Auto) 1.00 L (1.2-3.4) K/uL Josephine # (Auto) 1.48 H (0.11-0.59) K/uL Immature Gran # (Auto) 0.27 H (0.01-0.20) K/uL Glucose 113 H (70-99(Fasting)) mg/dl Calcium 7.1 L (8.6-10.3) mg/dl PG Care Time/CCT Total # of Minutes Spent Total Time Spent with Patient: Total time spent is greater than 50% in coordination of care (as documented) at patient's floor/unit and/or counseling patient: Coding Level of Care Code 85305 SUB INP/OBS CARE 2/35MIN Diagnoses Cellulitis of right leg L03.115 Adenocarcinoma carcinomatosis C80.0 Hypocalcemia E83.51 SVT (supraventricular tachycardia) I47.1 Paralytic ileus of large intestine K56.0 Antineoplastic chemotherapy induced pancytopenia D61.810; T45.1X5A Neutropenia D70.9 Hypothyroidism E03.9 Post-polio syndrome G14 Candidiasis of mouth and esophagus B37.81; B37.0 History of DVT (deep vein thrombosis) Z86.718 Severe protein-calorie malnutrition E43 DVT prophylaxis Z29.9 Vitamin D deficiency E55.9 Hypophosphatemia E83.39 Acute metabolic encephalopathy G93.41 Urinary retention R33.9
[2022-08-17] MEDS: HEPARIN 100 UNIT/ML 5ML FLUSH FLUSH PRN (22:09)
[2022-08-17] MEDS: oxyCODONE HCL IR 5 MG TAB (IMMEDIATE RELEASE) PO PRN (22:09)
[2022-08-17] MEDS: MIRTAZAPINE TAB 15 MG TAB PO SCH (22:11)
[2022-08-17] MEDS: MELATONIN 3 MG TAB PO SCH (22:13)
[2022-08-18] MEDS: LEVOTHYROXINE SODIUM 100 MCG TABLET PO SCH (06:25)
[2022-08-18] MEDS: HEPARIN 100 UNIT/ML 5ML FLUSH FLUSH PRN ×2 (07:20→14:57)
[2022-08-18] MEDS: FIRST - Mouthwash BLM 119 ML PO SCH ×4 (07:29→20:47)
[2022-08-18] MEDS: SUCRALFATE 1 GM/10 ML UDC PO SCH ×4 (07:29→20:46)
[2022-08-18] MEDS: CALCIUM CARBONATE 500 MG CHEWABLE TAB PO SCH ×4 (07:29→20:46)
[2022-08-18 08:07] LABS: Basophils # (auto) 0.06 K/uL (0-0.2); Basophils % (auto) 0.5 %; Eosinophils # (auto) 0.06 K/uL (0-0.50); Eosinophils % (auto) 0.5 %; Hematocrit (blood only) 24.9 % (42.0-52.0); Hemoglobin 8.4 g/dl (14.0-18.0); Immature Granulocytes # (auto) 0.24 K/uL (0.01-0.20); Lymphocytes # (auto) 1.06 K/uL (1.2-3.4); Lymphocytes % (auto) 8.9 %; Mean Corpuscular Hemoglobin 29.5 pg (25.0-34.0); Mean Corpuscular Hgb Conc 33.7 g/dL (32.0-36.0); Mean Corpuscular Volume 87.4 fL (80.0-100.0); Mean Platelet Volume 10.5 fL (9.4-12.4); Monocytes # (auto) 1.62 K/uL (0.11-0.59); Monocytes % (auto) 13.6 %; Neutrophils # (auto) 8.91 K/uL (1.40-6.50); Neutrophils % (auto) 74.5 %; Platelet Count 333 K/uL (130-400); RDW Coefficient of Variation 17.1 % (11.5-14.5); RDW Standard Deviation 49.7 fL (36.4-46.3); Red Blood Count 2.85 M/uL (4.70-6.10); White Blood Count 11.95 K/ul (4.8-10.8)
[2022-08-18] MEDS: POLYETHYLENE (MIRALAX) 17 GM PACK PO SCH ×2 (08:20→20:46)
[2022-08-18] MEDS: POT PHOSPHATE MONOBASIC W/ SOD TAB PO SCH ×4 (08:21→20:46)
[2022-08-18] MEDS: FUROSEMIDE 40 MG TAB PO SCH (08:22)
[2022-08-18] MEDS: oxyBUTYnin chloride 5 MG TAB PO SCH ×3 (08:22→20:51)
[2022-08-18] MEDS: CEROVITE ADV FORMULA TAB PO SCH (08:22)
[2022-08-18] MEDS: PANTOprazole 40 MG TAB PO SCH (08:22)
[2022-08-18] MEDS: DOCUSATE SODIUM 100 MG CAP PO SCH ×2 (08:22→20:46)
[2022-08-18] MEDS: ENOXAPARIN INJ 40 MG/0.4 ML SYR SQ SCH (08:23)
[2022-08-18 08:33] LABS: BUN Creatinine Ratio 16.9 (10-20); Calcium 7.2 mg/dl (8.6-10.3); Creatinine Clr Calc Pharmacy 85.8 ml/min; Est GFR (African American) 102.8 ml/min; Est GFR (Non-African American) 88.7 ml/min; Potassium 3.2 mmol/L (3.5-5.1)
[2022-08-18] MEDS ORDERED: POTASSIUM CHLORIDE CRTAB 20 MEQ TABCR PO STA (09:21)
--- NOTE | 2022-08-18 10:54 | Palliative Care Consultation ---
Date of Consultation August 18, 2022 Assessment & Plan (1) Palliative care encounter: I had an extensive talk with Mr. Wiseman at bedside. He is frustrated with progressive weakness and not feeling like he's making any progress. We discussed concern that this may be as good as it gets for him. He recognizes th at he may be approaching his dying time. He still very much wants to go for rehab with the hope of getting stronger and being able to get further treatment but has also been considering what would happen if he were not able to do this. He expresses concern about his and support for her. He is also working out some spiritual concerns about what happens after . Offered visit from hospital lead medical technologist and he is interested in this. We talked about what he would want his dying time to look like when it comes. He tells me that he has not really thought about this. I asked him again, whether there was any limit to what he would be willing to go through in terms of treatment or care in order to prolong his life. He, again, told me that he has not really thought much about this. He did say that living like he currently is with no interest in food and limited ability to do the things that he wants to do, would not be a tolerable way of life in the longer term. We reviewed his code status. He tells me that he has thought about this and that he does not think that he would want resuscitation. I reviewed his current code status which is full code. I asked him if he wanted to change that and he deferred at this time. He would prefer to discuss with his first. We discussed concern that, given his frailty and illness, he would not likely have the outcome he desires and may have additional suffering. We also discussed compatibility of being DNR but continuing current treatment interventions. He understands this. He has asked that we have ongoing discussions about goals of care moving forward. His is teaching today and not available to meet. Plan is likely transfer to [facility] tomorrow. Will arrange televisit for further discussion at [facility]. History of Present Illness Reason for Consultation: goals of care Requesting Physician: Dr. 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 He has received reduced dose gemcitabine/abraxane with last treatment approximately three weeks ago. He was admitted with progressive weakness and intractable nausea. He has had poor appetite and po intake which is a major concern for his . His most recent albumin level is 2.4. He was found to have RLE cellulitis which was treated with antibiotic therapy. He has also had paralytic ileus of the large bowel. 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 KUB was negative for obstruction. He did have a BM yesterday. He denies any pain or discomfort. He denies nausea currently but does report some nausea after eating. He tells me that he has absolutely no interest in eating and has to force food down. He says that everything that he has enjoyed in the best has a terrible, bitter taste. His other concern is generalized weakness which has been getting worse. He told me that he was unable to participate in physical therapy this morning. Allergies Allergy/AdvReac Type Severity Reaction Status Date / Time No Known Allergies Allergy Verified 08/04/22 19:07 Home Medications Medication Instructions Recorded Confirmed Type cholecalciferol (vitamin D3) 50 50 mcg PO DAILY 02/18/21 08/04/22 History mcg (2,000 unit) capsule calcium carbonate 550 mg-magnesium 2 tab PO Q4H PRN Acid Reflux 06/15/22 08/04/22 History hydroxide 110 mg chewable tablet levothyroxine 100 mcg tablet 100 mcg PO QAM 06/15/22 08/04/22 History psyllium husk 3.4 gram/5.4 gram 1 tbsp PO BID PRN Constipation 06/16/22 08/04/22 History oral powder (Metamucil) acetaminophen 325 mg tablet 325 mg PO QID PRN Pain 07/13/22 08/04/22 History (Tylenol) lidocaine-prilocaine 2.5 %-2.5 % 1 applic topical DIRECTED PRN 08/04/22 08/04/22 History topical cream PRIOR TO PROCEDURES loperamide 2 mg capsule 2 mg PO DIRECTED PRN Diarrhea 08/04/22 08/04/22 History bptxmiejkvwu-ihvsczva-fhoyyq 1 tab PO DAILY 08/04/22 08/04/22 History tablet (Multivitamin 50 Plus tablet) ondansetron HCl 8 mg tablet 8 mg PO Q8H PRN NAUSEA/VOMITING 08/04/22 08/04/22 Hi story oxycodone 5 mg tablet 5 mg PO .Q4-6H PRN Pain 08/04/22 08/04/22 History pantoprazole 40 mg tablet,delayed 40 mg PO HS 08/04/22 08/04/22 History release prochlorperazine maleate 10 mg 10 mg PO Q6H PRN NAUSEA/VOMITING 08/04/22 08/04/22 History tablet Patient History Medical History Acid reflux Uses PRN Rolaids 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, 'working diagnosis continues to be metastatic prostate ca' Anemia, mild DVT (deep venous thrombosis) History of, due to prolonged sitting, > resolved Dysphagia No recent mention of dysphagia in past several PCP notes History of COVID-summer > very mild symptoms Hoarseness, chronic Hyperlipidemia Resolved per pt HLD per 02/2022 PCP note - recommend statin but patient defers at this time Hypothyroidism Mild bibasilar atelectasis Per recent CT on 06/10/22 per pt PAC (premature atrial contraction) Post-polio syndrome Chronic right leg weakness per records Per PCP records- "PT for post polio and arranged for balance" Prediabetes TIA (transient ischemic attack) Pt denies - no mention of TIA in recent PCP notes Surgical History H/O hand surgery right H/O umbilical hernia repair (06/18/22) Diagnostic Laparoscopy, Peritoneal Biopsy, Omentum Biopsy, Abdominal Wall Biopsy, Umbilical Hernia Repair by 06/18/22; GA MAC #4, ETT #7.5, Gr View 2 History of biopsy (06/18/22) Diagnostic Laparoscopy, Peritoneal Biopsy, Omentum Biopsy, Abdominal Wall Biopsy, Umbilical Hernia Repair by 06/18/22 History of cataract surgery bilat History of colonoscopy History of tooth extraction History of total left hip replacement Intestinal obstruction 1961 > with surgical repair Port-A-Cath in place (07/16/22) Insertion Access Port in Left Subclavian with Fluoroscopy - Will Joshua, DO S/P ankle arthrodesis S/P appendectomy S/P hernia repair S/P tonsillectomy and adenoidectomy Family History Father Coronary heart disease Hypoplastic anemia Myocardial infarction Nephrolithiasis Heart disease Mother Hypothyroidism Sister Hypothyroidism Colorectal cancer Son Marfan syndrome Grandmother Cancer Uncle Heart disease Denies family history of Ovarian cancer Prostate cancer Breast cancer Social History Smoking Status: Never smoker Tobacco Type: Pipe Age Started Using Tobacco: 19; Age Quit Using Tobacco: 45; packs per day: 2; Cigarettes Per Day: two pipe fulls a day; Second Hand Exposure: No; Hx Alcohol Use: No Hx Substance Use: No Preferred Language: Romansh Communication Ability: Effective Visual Impairment: Limited Hearing Ability: Use of Hearing Aid Senior Dentist Required: No Beliefs That Will Affect Care: None marital status: Current Living Situation: Spouse Current Living Situation Comment: home w spouse current occupational status: retired current occupation: professor at [employer], Emeritus Professor How many Children do You have: 2 Other Information That Helps Us Care for You: No Feels Safe at Home: Yes Safety Concerns: Feels Safe At This Time Childhood Exposure to Second-Hand Smoke: Yes caffeine: Yes (1 coffee per day) during the past year weight has: decreased > 10 lbs Dental Care, Regularly: Yes Physical Activity Frequency: 1-2 Times per Week Seatbelt Use: always Sunscreen Use: No Assistive Devices: Glasses and Walker Review of Systems Review of Systems: ESAS Pain 0/3 Dyspnea 0/3 Nausea 1/3 Drowsiness 1/3 Fatigue 3/3 Physical Exam Constitutional: + ill appearing ENMT: Mouth: + dry oral mucous membranes Respiratory: normal respiratory effort; + abnormal percussion Gastrointestinal (Abdomen): distended Skin: warm and dry Neurologic: Speech / Cognition: normal cognition Results & Data Vital Signs (Past 12 Hours) Vital Signs Temp Pulse Pulse Resp BP Pulse Ox O2 Del Method 08/18/22 08:00 Nasal Cannula 08/18/22 07:20 85 08/18/22 08:03 98.8 F 89 18 120/53 L 95 Nasal Cannula 08/18/22 03:00 98.2 F 81 18 118/53 L 92 Room Air O2 Flow Rate 08/18/22 08:00 2 08/18/22 07:20 08/18/22 08:03 2 08/18/22 03:00 PG Care Time/CCT Total # of Minutes Spent Total Time Spent: 90 Total Time Spent with Patient: Total time spent is greater than 50% in coordination of care (as documented) at patient's floor/unit and/or counseling patient: goals of care, code status, patient education and support, coordination of care Coding Level of Care Code 01394 INT INP/OBS CARE 3/75MIN Diagnoses Palliative care encounter Z51.5
--- NOTE | 2022-08-18 12:54 | Hospitalist Progress Note ---
Date of Service August 18, 2022 Assessment & Plan (1) Anasarca: Plan: 2nd to low albumin, abdominal carcinomatosis, copious IV fluids earlier this stay, etc. received lasix PO this am will give additional IV dose this afternoon repeat albumin in am (2) Cellulitis of right leg: Plan: resolved. completed full course of IV/PO abx. (3) Adenocarcinoma carcinomatosis: Plan: stage [address] follows with Dr Arroyo, [facility]. Recently initiated gemcitabine and abraxane. last chemo was 07/31/22. Recent CT a/p findings show progressive enlargement of primary pancreatic mass and carcinomatosis findings are also worse. On exam his ascites is worse. he denies having pain thus defer on therapeutic paracentesis for now. Dr Arroyo rechecked CA 19-9 level - 2155 - worse than several weeks prior. Candidate for any other Rx? Will d/w Dr Arroyo. (4) Hypocalcemia: Plan: 2nd to vit D deficiency possibly 2nd to chemo although both chemo agents (gemcitabine & abraxane), per the literature, rarely cause low calcium (there are case reports only) 25-OH vit D level low at 19 - started vitamin D supplementation earlier this stay calcium improving slowly remains on calcium carbonate 1000mg QID elevated PTH consistentwith vit D deficiency patient does not have bone mets from his cancer thus osteoblastic mets causing low calcium unlikely (5) SVT (supraventricular tachycardia): Plan: encountered earlier in the stay 2nd to low calcium? no recurrent episodes since cont to monitor (6) Paralytic ileus of large intestine: Plan: resolved had 3 Bms last 24 hours multifactorial etiology - electrolyte disturbances, copious amounts of imodium at home pre-hospital, immobility, etc. cannot rule out some effect of his carcinomatosis contributing to such but much less likely. CT a/p 08/09/22 without obstruction. (7) Antineoplastic chemotherapy induced pancytopenia: Plan: resolved cbc is stable. (8) Neutropenia: Plan: 2nd to recent chemotherapy for stage 4 pancreatic ca -- resolved. (9) Hypothyroidism: Plan: TSH 05/2022 wnl cont synthroid 100mcg daily (10) Post-polio syndrome: Plan: with resulting right leg weakness and muscle atrophy (11) Candidiasis of mouth and esophagus: Plan: resolved (12) History of DVT (deep vein thrombosis): Plan: 1970s by report while here - lovenox 40mg daily for DVT Proph (13) Severe protein-calorie malnutrition: Plan: 15 pounds of weight loss - 2nd to stage 4 cancer - over the last 2 months cont boost, MVI, etc eating improving with remeron (14) DVT prophylaxis: Plan: lovenox 40mg daily (15) Vitamin D deficiency: Plan: level = 18 cont vit D supplementation (16) Hypophosphatemia: Plan: replaced resolved d/c supplementation (17) Acute metabolic encephalopathy: Plan: likely multifactorial - hospital psychosis, infection (cellulitis), etc. checked CT head - no mets, ICH, etc. this has resolved (18) Urinary retention: Plan: likely 2nd to BPH colonic issues could be contributing as well mcginnis placed 08/08/22 removed, had voiding trial - failed, and mcginnis placed back poor candidate for BPH rx with alpha afshin given low-normal BPs consider finasteride but he would not have any benefit for several months Plan updated extensively by phone today appreciate Dr Wiseman meeting with patient today to see if goals of care have changed prognosis remains very poor [facility], but no discharge today Admission and Anticipated Discharge Date Admission Date: August 04, 2022 Subjective patient resting in bed during the visit he states he feels ok physically states appetite remains poor, but nursing flowsheets show >50% meal consumptions he complains about his scrotal edema and ongoing mcginnis he just was started on NC O2 due to low o2 sats and does have mild PATRICIA with trying to do activity out of bed remains very weak he states he is accepting of the fact that his dying time may be close he realizes he continues to decline if he ever could get to a point where he could do chemo he would give it a try but realizes it may not help states his abdominal swelling has worsened but denies pain Review of Systems Review of Systems: cv - no chest pain pulm - mild, intermittent cough GI - no pain or vomiting Physical Exam Physical Exam: gen - NAD, pleasant; very thin mouth - MMM; mucositis/thrush resolved neck - no JVD heart - RRR, s1 s2, no murmur lungs - CTA b/l but decreased BS bases abd - distension worse/quite tense abdomen but no tenderness; metastatic deposit L side of abdomen unchanged ext - right leg is smaller than left leg due to prior polio; 1+ edema b/l; pulses 2+ b/l feet - scrotal edema back - flank edema b/l Results & Data Results & Data Vital Signs (Past 12 Hours) Vital Signs Temp Pulse Pulse Resp BP Pulse Ox O2 Del Method 08/18/22 11:20 36.8 C 84 20 118/65 95 Nasal Cannula 08/18/22 08:00 Nasal Cannula 08/18/22 07:20 85 08/18/22 08:03 37.1 C 89 18 120/53 L 95 Nasal Cannula 08/18/22 03:00 36.8 C 81 18 118/53 L 92 Room Air O2 Flow Rate 08/18/22 11:20 2 08/18/22 08:00 2 08/18/22 07:20 08/18/22 08:03 2 08/18/22 03:00 Laboratory Results Laboratory Results - last 24 hr 08/18/22 08/18/22 07:16 07:16 WBC 11.95 H RBC 2.85 L Hgb 8.4 L Hct 24.9 L MCV 87.4 MCH 29.5 MCHC 33.7 RDW Std Deviation 49.7 H RDW Coeff of Dinora 17.1 H Plt Count 333 MPV 10.5 Immature Gran % (Auto) 2.0 Neut % (Auto) 74.5 Lymph % (Auto) 8.9 [place] % (Auto) 13.6 Eos % (Auto) 0.5 Baso % (Auto) 0.5 Neut # (Auto) 8.91 H Lymph # (Auto) 1.06 L [place] # (Auto) 1.62 H Eos # (Auto) 0.06 Baso # (Auto) 0.06 Immature Gran # (Auto) 0.24 H Sodium 137 Potassium 3.2 L Chloride 104 Carbon Dioxide 28 Anion Gap 5 BUN 11 Creatinine 0.65 Est Cr Clr Drug Dosing 85.8 Est GFR ( Amer) 102.8 Est GFR (Non-Af Amer) 88.7 BUN/Creatinine Ratio 16.9 Glucose 96 Calcium 7.2 L PG Care Time/CCT Total # of Minutes Spent Total Time Spent with Patient: Total time spent is greater than 50% in coordination of care (as documented) at patient's floor/unit and/or counseling patient: Coding Level of Care Code 51029 SUB INP/OBS CARE 3/50MIN Diagnoses Anasarca R60.1 Cellulitis of right leg L03.115 Adenocarcinoma carcinomatosis C80.0 Hypocalcemia E83.51 SVT (supraventricular tachycardia) I47.1 Paralytic ileus of large intestine K56.0 Antineoplastic chemotherapy induced pancytopenia D61.810; T45.1X5A Neutropenia D70.9 Hypothyroidism E03.9 Post-polio syndrome G14 Candidiasis of mouth and esophagus B37.81; B37.0 History of DVT (deep vein thrombosis) Z86.718 Severe protein-calorie malnutrition E43 DVT prophylaxis Z29.9 Vitamin D deficiency E55.9 Hypophosphatemia E83.39 Acute metabolic encephalopathy G93.41 Urinary retention R33.9
[2022-08-18] MEDS ORDERED: POTASSIUM CHLORIDE CRTAB 20 MEQ TABCR PO ONE (15:00)
[2022-08-18] MEDS ORDERED: FUROSEMIDE INJ 20 MG/2 ML VIAL IV ONE (15:00)
[2022-08-18] MEDS: MIRTAZAPINE TAB 15 MG TAB PO SCH (20:46)
[2022-08-18] MEDS: MELATONIN 3 MG TAB PO SCH (20:51)
[2022-08-19] MEDS: LEVOTHYROXINE SODIUM 100 MCG TABLET PO SCH (05:49)
[2022-08-19] MEDS: HEPARIN 100 UNIT/ML 5ML FLUSH FLUSH PRN (06:20)
[2022-08-19 08:00] LABS: Albumin Level 2.2 gm/dl (3.4-5.0); BUN Creatinine Ratio 16.9 (10-20); Calcium 7.4 mg/dl (8.6-10.3); Creatinine Clr Calc Pharmacy 72.4 ml/min; Est GFR (African American) 95.9 ml/min; Est GFR (Non-African American) 82.7 ml/min; Magnesium 1.6 mg/dl (1.7-2.4); Potassium 3.6 mmol/L (3.5-5.1)
[2022-08-19] MEDS: CALCIUM CARBONATE 500 MG CHEWABLE TAB PO SCH ×4 (08:06→22:08)
[2022-08-19] MEDS: POLYETHYLENE (MIRALAX) 17 GM PACK PO SCH ×2 (08:08→22:08)
[2022-08-19] MEDS: POT PHOSPHATE MONOBASIC W/ SOD TAB PO SCH (08:09)
[2022-08-19] MEDS: oxyBUTYnin chloride 5 MG TAB PO SCH ×3 (08:09→22:11)
[2022-08-19] MEDS: DOCUSATE SODIUM 100 MG CAP PO SCH ×2 (08:10→22:09)
[2022-08-19] MEDS: ENOXAPARIN INJ 40 MG/0.4 ML SYR SQ SCH (08:12)
[2022-08-19] MEDS: FUROSEMIDE 40 MG TAB PO SCH (08:12)
[2022-08-19] MEDS: SUCRALFATE 1 GM/10 ML UDC PO SCH ×4 (08:12→22:07)
[2022-08-19] MEDS: CEROVITE ADV FORMULA TAB PO SCH (08:13)
[2022-08-19] MEDS: FIRST - Mouthwash BLM 119 ML PO SCH ×4 (08:14→22:09)
[2022-08-19] MEDS: PANTOprazole 40 MG TAB PO SCH (09:20)
--- NOTE | 2022-08-19 13:10 | XRay Report ---
XR chest 1V portable HISTORY: 87 years-old Male volume overload/CHF acute shortness of breath COMPARISON: 08/04/2022 TECHNIQUE: AP view of the chest FINDINGS: Cardiac silhouette is enlarged. Pulmonary vascular congestion with interval development of mild inter stitial coarsening. Small pleural effusions. No pneumothorax. Left subclavian Cnoxdt-f-Mmoa catheter is unchanged. Mild retrocardiac airspace densities. Bones appear grossly intact. IMPRESSION: 1. Cardiomegaly with mild pulmonary edema. 2. Small pleural effusions. 3. Mild retrocardiac airspace opacities favor atelectasis. Pneumonia considered less likely. ACT 112: Negative or not required by law. The above report was generated using voice recognition software. It may contain grammatical, syntax o r spelling errors. Electronically signed by: Davy Baez M.D. 08/19/2022 1:09 PM
[2022-08-19] MEDS ORDERED: FUROSEMIDE INJ 20 MG/2 ML VIAL IV ONE (16:30)
[2022-08-19] MEDS ORDERED: POTASSIUM CHLORIDE CRTAB 20 MEQ TABCR PO ONE (16:30)
[2022-08-19] MEDS ORDERED: SODIUM CHLORIDE 0.9% 1000ML 500 ML IV ONE (17:24)
[2022-08-19] MEDS ORDERED: SODIUM CHLORIDE 0.9% 500 ML IV SCH (17:30)
[2022-08-19] MEDS: MAGNESIUM SULFATE / D5W 1 GM/100 ML BAG IV SCH (18:20)
--- NOTE | 2022-08-19 21:23 | Hospitalist Progress Note ---
Date of Service August 19, 2022 Assessment & Plan (1) Atrial fibrillation with RVR: Plan: patient today with rapid a.fib starting this afternoon patient had gotten up from the bed to use the commode and developed dizziness with significant drop in SBP to the 60s he was also tachycardic with HRs in the 130-140 range. tele strips appeared c/w rapid a.fib. 12-lead EKG obtained - rapid a.fib confirmed. we had been diuresing him for volume overload but unfortunately had to give small fluid bolus due to the severe hypotension. SBP improved to low 100s with placing him back in bed and giving fluid bolus. given the a.fib, high risk of DVT/PE due to advanced cancer, and prior h/o DVT will place on Eliquis 5mg BID. with respect to rate control could consider IV digoxin given the low BPs. could also consider rhythm control strategy with amiodarone. (2) Anasarca: Plan: 2nd to low albumin, abdominal carcinomatosis, copious IV fluids earlier this stay, etc. we have been attempting to diurese him but at this point may be intravascularly dry despite ongoing 3rd spacing unfortunately will have to stop diuretics gave 500cc of fluid back to him in light of the episode he had this afternoon (3) Cellulitis of right leg: Plan: resolved. completed full course of IV/PO abx earlier this stay. 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 with Dr Arroyo, [facility]. Recently initiated gemcitabine and abraxane. last chemo was 07/31/22. Recent CT a/p findings show progressive enlargement of primary pancreatic mass and carcinomatosis findings are also worse. On exam his ascites is worse. he denies having pain thus defer on therapeutic paracentesis for now. Dr Arroyo rechecked CA 19-9 level - 2155 - worse than several weeks prior. I spoke with Dr Arroyo today. Pt's had requested a 2nd opinion re: any additional treatment options. He has a scheduled telehealth appointment with [facility] on 08/26 to discuss any remaining options. (5) Hypocalcemia: Plan: 2nd to vit D deficiency possibly 2nd to chemo although both chemo agents (gemcitabine & abraxane), per the literature, rarely cause low calcium (there are case reports only) 25-OH vit D level low at 19 - started vitamin D supplementation earlier this stay calcium improving slowly corrected calcium is wnl remains on calcium carbonate 1000mg QID elevated PTH consistent with vit D deficiency patient does not have bone mets from his cancer thus osteoblastic mets causing low calcium unlikely (6) SVT (supraventricular tachycardia): Plan: encountered earlier in the stay 2nd to low calcium? no recurrent episodes since but did have rapid a.fib today -- see #1 above cont to monitor (7) Paralytic ileus of large intestine: Plan: resolved moving his bowels regularly now multifactorial etiology - electrolyte disturbances, copious amounts of imodium at home pre-hospital, immobility, etc. cannot rule out some effect of his carcinomatosis contributing to such but much less likely. CT a/p 08/09/22 without obstruction. (8) Antineoplastic chemotherapy induced pancytopenia: Plan: resolved cbc is stable. (9) Neutropenia: Plan: 2nd to recent chemotherapy for stage 4 pancreatic ca -- resolved. 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 (12) Candidiasis of mouth and esophagus: Plan: resolved (13) History of DVT (deep vein thrombosis): Plan: 1970s by report see #1 above re: institution of Eliquis (14) Severe protein-calorie malnutrition: Plan: 15 pounds of weight loss - 2nd to stage 4 cancer - over the last 2 months cont boost, MVI, etc eating improved with remeron (15) DVT prophylaxis: Plan: stop lovenox starting Eliquis 5mg BID (16) Vitamin D deficiency: Plan: level = 18 cont vit D supplementation (17) Hypophosphatemia: Plan: replaced resolved d/c supplementation (18) Acute metabolic encephalopathy: Plan: likely multifactorial - hospital psychosis, infection (cellulitis), etc. checked CT head - no mets, ICH, etc. this has resolved (19) Urinary retention: Plan: likely 2nd to BPH colonic issues could be contributing as well mcginnis placed 08/08/22 removed, had voiding trial - failed, and mcginnis placed back poor candidate for BPH rx with alpha afshin given low-normal BPs consider finasteride but he would not have any benefit for several months Plan updated extensively by phone yesterday appreciate Dr Wiseman meeting with patient yesterday to further refine goals of ca re prognosis remains very poor [facility], but he is still not fit for discharge Admission and Anticipated Discharge Date Admission Date: August 04, 2022 Subjective tele overnight - NSR with frequent ectopy, then this afternoon developed rapid a.fib in the setting of near-syncopal episode and acute hypotension saw patient on AM rounds he slept ok overnight appetite has improved over the last week he had no new complaints he states "I want to give the rehab a shot" he remains very weak this afternoon he had to use the bedside commode upon getting up from bed he felt very dizzy was pale BP dropped into the 60s systolic, once back in bed was in the 80s HR quickly kali into the 140s with EKG showing rapid a.fib apparently had had a similar episode a few days ago fluid bolus needed to be given for the acute hypotensive episode Review of Systems Review of Systems: gen - weak/fatigue remains; appetite has improved cv - no chest pain; some element of orthopnea pulm - requiring NC O2 still; I attempted to remove it during the visit; sats quickly dropped below 90% in room air GI - distended but no pain; no vomiting; moving bowels Physical Exam Physical Exam: gen - NAD, looks tired mouth - MMM; mucositis/thrush resolved neck - no JVD heart - irregular, s1 s2, no murmur lungs - decreased BS bases b/l with mild rales abd - distension unchanged; no tenderness; metastatic deposit L side of abdomen unchanged; probable ascites ext - right leg is smaller than left leg due to prior polio; trace edema b/l; pulses 2+ b/l feet - scrotal edema ongoing back - flank edema b/l ongoing Results & Data Results & Data Vital Signs (Past 12 Hours) Vital Signs Temp Pulse Pulse Resp BP BP Pulse Ox 08/19/22 18:35 36.8 C 96 H 20 102/57 L 93 08/19/22 17:29 102 H 90/55 L 08/19/22 16:52 140 H 68/36 L 08/19/22 17:08 126 H 24 86/48 L 91 08/19/22 15:13 36.8 C 93 H 20 102/54 L 96 08/19/22 12:00 03/29/23 11:49 85 08/19/22 11:36 36.8 C 123 H 20 91/51 L 94/56 L 94 O2 Del Method O2 Flow Rate 08/19/22 18:35 Nasal Cannula 2 08/19/22 17:29 08/19/22 16:52 08/19/22 17:08 Nasal Cannula 2 08/19/22 15:13 Nasal Cannula 2 08/19/22 12:00 Nasal Cannula 2 08/19/22 11:49 08/19/22 11:36 Nasal Cannula 2 Laboratory Results Laboratory Results - last 24 hr 08/19/22 08/19/22 06:15 11:35 Sodium 138 Potassium 3.6 Chloride 103 Carbon Dioxide 29 Anion Gap 6 BUN 13 Creatinine 0.77 Est Cr Clr Drug Dosing 72.4 Est GFR ( Amer) 95.9 Est GFR (Non-Af Amer) 82.7 BUN/Creatinine Ratio 16.9 Glucose 95 Calcium 7.4 L Magnesium 1.6 L Albumin 2.2 L SARS-CoV-2, RNA, NAAT NEGATIVE Diagnostic Findings EkG this afternoon - my reading - rapid a.fib, flattened ST segments multiple leads PG Care Time/CCT Total # of Minutes Spent Total Time Spent with Patient: Total time spent is greater than 50% in coordination of care (as documented) at patient's floor/unit and/or counseling patient: Coding Level of Care Code 12073 SUB INP/OBS CARE 3/50MIN Diagnoses Atrial fibrillation with RVR I48.91 Anasarca R60.1 Cellulitis of right leg L03.115 Adenocarcinoma carcinomatosis C80.0 Hypocalcemia E83.51 SVT (supraventricular tachycardia) I47.1 Paralytic ileus of large intestine K56.0 Antineoplastic chemotherapy induced pancytopenia D61.810; T45.1X5A Neutropenia D70.9 Hypothyroidism E03.9 Post-polio syndrome G14 Candidiasis of mouth and esophagus B37.81; B37.0 History of DVT (deep vein thrombosis) Z86.718 Severe protein-calorie malnutrition E43 DVT prophylaxis Z29.9 Vitamin D deficiency E55.9 Hypophosphatemia E83.39 Acute metabolic encephalopathy G93.41 Urinary retention R33.9
[2022-08-19] MEDS: APIXABAN 5 MG TABLET PO SCH (22:07)
[2022-08-19] MEDS: MIRTAZAPINE TAB 15 MG TAB PO SCH (22:08)
[2022-08-19] MEDS: MELATONIN 3 MG TAB PO SCH (22:08)
[2022-08-20] MEDS: CALCIUM CARBONATE 500 MG CHEWABLE TAB PO SCH ×4 (05:42→21:22)
[2022-08-20] MEDS: LEVOTHYROXINE SODIUM 100 MCG TABLET PO SCH (05:42)
[2022-08-20] MEDS: DOCUSATE SODIUM 100 MG CAP PO SCH ×2 (08:10→21:21)
[2022-08-20] MEDS: PANTOprazole 40 MG TAB PO SCH (08:11)
[2022-08-20] MEDS: CEROVITE ADV FORMULA TAB PO SCH (08:11)
[2022-08-20] MEDS: FIRST - Mouthwash BLM 119 ML PO SCH ×4 (08:11→21:21)
[2022-08-20] MEDS: SUCRALFATE 1 GM/10 ML UDC PO SCH ×4 (08:12→21:21)
[2022-08-20] MEDS: oxyBUTYnin chloride 5 MG TAB PO SCH ×3 (08:12→21:25)
[2022-08-20] MEDS: POLYETHYLENE (MIRALAX) 17 GM PACK PO SCH ×2 (08:12→21:23)
[2022-08-20] MEDS: APIXABAN 5 MG TABLET PO SCH ×2 (08:13→21:24)
--- NOTE | 2022-08-20 10:59 | Palliative Care Progress Note ---
Date of Service August 20, 2022 Assessment & Plan (1) Palliative care encounter: Plan: He is meeting with PT this morning and is looking forward to going to [facility] for rehab. He has had the opportunity to speak with the hospital booster operator and with the interim rolling machine operator at his [facility]. He remains hopeful but understands the severity of his illness. He and his will have a televisit with [facility] oncology next week for a second opinion and discussion about prognosis. He has requested that we meet after than meeting for support and discussion about goals of care. Will arrange palliative care televisit at [facility] next Wednesday per his request. I called his but no answer. Left message. Admission and Anticipated Discharge Date Admission Date: August 04, 2022 Subjective Sleeping but easily arousable. Continues to have problems with the taste of many foods but has found mashed potatoes and beef broth more tolerable. Also drinking peach boost. Denies pain or dyspnea. Review of Systems Review of Systems: ESAS Pain 0/3 Dyspnea 0/3 Nausea 1/3 Drowsiness1/3 Physical Exam Constitutional: + frail appearing ENMT: Mouth: + dry oral mucous membranes Respiratory: normal respiratory effort; no labored breathing Musculoskeletal: Extremities: + muscle atrophy Neurologic: Speech / Cognition: normal cognition Results & Data Vital Signs (Past 12 Hours) Vital Signs Temp Pulse Pulse Resp BP Pulse Ox O2 Del Method 08/20/22 09:30 Nasal Cannula 08/20/22 07:26 89 08/20/22 06:08 98.2 F 88 18 102/56 L 92 Nasal Cannula 08/20/22 04:22 97.9 F 93 H 18 100/54 L 93 Nasal Cannula 08/20/22 00:01 89 08/19/22 23:17 97.9 F 90 18 118/61 92 Nasal Cannula O2 Flow Rate 08/20/22 09:30 08/20/22 07:26 08/20/22 06:08 2 08/20/22 04:22 2 08/20/22 00:01 08/19/22 23:17 2 PG Care Time/CCT Total # of Minutes Spent Total Time Spent: 34 Total Time Spent with Patient: Total time spent is greater than 50% in coordination of care (as documented) at patient's floor/unit and/or counseling patient:[id number] goals of care, patient support Coding Level of Care Code 86950 SUB INP/OBS CARE MIN Diagnoses Palliative care encounter Z51.5
[2022-08-20 16:06] LABS: BUN Creatinine Ratio 23.6 (10-20); Calcium 5.9 mg/dl (8.6-10.3); Creatinine Clr Calc Pharmacy 101.4 ml/min; Est GFR (African American) 110.1 ml/min; Magnesium 1.6 mg/dl (1.7-2.4); Potassium 2.6 mmol/L (3.5-5.1)
[2022-08-20] MEDS ORDERED: POTASSIUM CHLORIDE CRTAB 20 MEQ TABCR PO STA ×2 (16:26→20:51)
[2022-08-20] MEDS ORDERED: CALCIUM GLUCONATE 10% 2,000 MG in DEXTROSE 5% 50 ML IV ONE (16:26)
[2022-08-20] MEDS ORDERED: STAT IV STA (16:26)
[2022-08-20] MEDS ORDERED: CALCIUM GLUCONATE 10% 1,000 MG in DEXTROSE 5% 50 ML IV ONE (16:27)
[2022-08-20] MEDS: MAGNESIUM SULFATE / D5W 1 GM/100 ML BAG IV SCH ×2 (17:15→19:12)
--- NOTE | 2022-08-20 21:07 | Hospitalist Progress Note ---
Date of Service August 20, 2022 Assessment & Plan (1) Hypocalcemia: Plan: acute on chronic acute component today - 2nd to lasix diuresis and compounded by low K/low Mag chroncic - 2nd to vit D deficiency possibly 2nd to chemo although both chemo agents (gemcitabine & abraxane), per the literature, rarely cause low calcium (there are case reports only) 25-OH vit D level low at 19 - started vitamin D supplementation earlier this stay plan - 2 amps of calcium gluconate IV now then cont calcium carbonate 1000mg QID by mouth replace low mag replace low K elevated PTH consistent with vit D deficiency patient does not have bone mets from his cancer thus osteoblastic mets causing low calcium unlikely (2) Hypokalemia: Plan: 2nd to lasix and other electrolyte issues kdur 40meq x 2 doses tonight replace low Ca replace low Mag repeat BMP/mag/Ca am (3) Hypomagnesemia: Plan: 2nd to lasix mag sulfate 2gm IV x 1 now replace low K and low Ca repeat level am (4) Atrial fibrillation with RVR: Plan: 08/19/22 - episode of rapid a.fib lasting about 1 hour patient had gotten up from the bed to use the commode and developed dizziness with significant drop in SBP to the 60s he was also tachycardic with HRs in the 130-140 range. tele strips appeared c/w rapid a.fib. 12-lead EKG obtained - rapid a.fib confirmed. given the a.fib, high risk of DVT/PE due to advanced cancer, and prior h/o DVT started Eliquis 5mg BID. fortunately has converted back to NSR. cont to replace low lytes. cont telemetry. (5) Anasarca: Plan: 2nd to low albumin, abdominal carcinomatosis, copious IV fluids earlier this stay, etc. we have been attempting to diurese him but at this point may be intravascularly dry despite ongoing 3rd spacing unfortunately will have to stop diuretics due to such as well as low K/Ca/mag (6) Cellulitis of right leg: Plan: resolved. completed full course of IV/PO abx earlier this stay. (7) Adenocarcinoma carcinomatosis: Plan: stage [address] follows with [address] Arroy[facility], [facility]. Recently initiated gemcitabine and abraxane. last chemo was 07/31/22. Recent CT a/p findings show progressive enlargement of primary pancreatic mass and carcinomatosis findings are also worse. On exam his ascites is worse. he denies having pain thus defer on therapeutic paracentesis for now. Dr Arroyo rechecked CA 19-9 level - 2155 - worse than several weeks prior. I spoke with Dr Arroyo this week. Pt's had requested a 2nd opinion re: any additional treatment options. He has a scheduled telehealth appointment with [facility] on 08/26 to discuss any remaining options. HOWEVER - cont to have recurrent problems affecting multiple systems and is making poor progress on grand scale. Spoke with pt's by phone this evening - she will come tomorrow pm to discuss goals of care with me and patient. Need to address code status as well. (8) SVT (supraventricular tachycardia): Plan: encountered earlier in the stay 2nd to low calcium? no recurrent episodes since but did have rapid a.fib 08/19/22 -- see above cont to monitor (9) Paralytic ileus of large intestine: Plan: resolved moving his bowels regularly now multifactorial etiology - electrolyte disturbances, copious amounts of imodium at home pre-hospital, immobility, etc. cannot rule out some effect of his carcinomatosis contributing to such but much less likely. CT a/p 08/09/22 without obstruction. (10) Antineoplastic chemotherapy induced pancytopenia: Plan: resolved cbc is stable. (11) Neutropenia: Plan: 2nd to recent chemotherapy for stage 4 pancreatic ca -- resolved. 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 (14) Candidiasis of mouth and esophagus: Plan: resolved can stop magic mouthwash and nystatin solution (15) History of DVT (deep vein thrombosis): Plan: 1970s by report (16) Severe protein-calorie malnutrition: Plan: 15 pounds of weight loss - 2nd to stage 4 cancer - over the last 2 months cont boost, MVI, etc eating improved with remeron (17) DVT prophylaxis: Plan: Eliquis 5mg BID (18) Vitamin D deficiency: Plan: level = 18 cont vit D supplementation (19) Hypophosphatemia: Plan: replaced resolved (20) Acute metabolic encephalopathy: Plan: likely multifactorial - hospital psychosis, infection (cellulitis), etc. checked CT head - no mets, ICH, etc. this has resolved (21) Urinary retention: Plan: likely 2nd to BPH colonic issues could be contributing as well mcginnis placed 08/08/22 removed, had voiding trial - failed, and mcginnis placed back poor candidate for BPH rx with alpha afshin given low-normal BPs consider finasteride but he would not have any benefit for several months Plan updated extensively by phone today family meeting tomorrow pm appreciate Dr Wiseman meeting with patient day to day prognosis remains very poor [facility], but he is still not fit for discharge Admission and Anticipated Discharge Date Admission Date: August 04, 2022 Subjective eating a little better than prior in his stay but he has very little taste at this time denies dyspnea at rest he was able to sit in chair today and denies that he felt dizzy continues with abdominal bloating but no pain we had long, kusum discussion today about his ongoing, recurrent issues (arrhythmia, electrolyte issues, volume overload, the episode of PAF yesterday, etc) he realizes that his "time is near the end" he realizes and understands that "rehabbing" at SNF likely would be difficult and/or impossible he also understands that the likelihood of being able to do more chemo is unlikely I suggested that we have a meeting together w/ his tomorrow to discuss all of this Review of Systems Review of Systems: gen - denies pain in any location cv - no chest pain pulm - mild cough; no dyspnea at rest GI - no vomiting - mcginnis in place Physical Exam Physical Exam: gen - NAD, looks tired and very weak mouth - MMM; mucositis/thrush not present neck - no JVD heart - irregular, s1 s2, no murmur; rate <100 lungs - decreased BS bases b/l with mild rales bases abd - distension unchanged; no tenderness; metastatic deposit L side of abdomen unchanged; probable ascites - same as yesterday ext - 1-2+ edema RLE>LLE; pulses 2+ b/l back - flank edema b/l ongoing psych - restricted affect; a/o x 3 Results & Data Results & Data Vital Signs (Past 12 Hours) Vital Signs Temp Pulse Pulse Resp BP BP Pulse Ox 08/20/22 19:07 36.9 C 84 18 112/48 L 95 08/20/22 15:23 36.5 C 96 H 20 122/55 L 92 08/20/22 15:04 88 08/20/22 11:11 36.7 C 108 H 20 92/52 L 96 08/20/22 09:30 O2 Del Method O2 Flow Rate 08/20/22 19:07 Nasal Cannula 2 08/20/22 15:23 Nasal Cannula 2 08/20/22 15:04 08/20/22 11:11 Nasal Cannula 2 08/20/22 09:30 Nasal Cannula Laboratory Results Laboratory Results - last 24 hr 08/20/22 09:29 Sodium 139 Potassium 2.6 L D Chloride 111 H Carbon Dioxide 23 Anion Gap 5 BUN 13 Creatinine 0.55 L Est Cr Clr Drug Dosing 101.4 Est GFR ( Amer) 110.1 Est GFR (Non-Af Amer) 95.0 BUN/Creatinine Ratio 23.6 H Glucose 115 H Calcium 5.9 L* Magnesium 1.6 L PG Care Time/CCT Total # of Minutes Spent Total Time Spent with Patient: Total time spent is greater than 50% in coordination of care (as documented) at patient's floor/unit and/or counseling patient: Coding Level of Care Code 77854 SUB INP/OBS CARE 3/50MIN Diagnoses Hypocalcemia E83.51 Hypokalemia E87.6 Hypomagnesemia E83.42 Atrial fibrillation with RVR I48.91 Anasarca R60.1 Cellulitis of right leg L03.115 Adenocarcinoma carcinomatosis C80.0 SVT (supraventricular tachycardia) I47.1 Paralytic ileus of large intestine K56.0 Antineoplastic chemotherapy induced pancytopenia D61.810; T45.1X5A Neutropenia D70.9 Hypothyroidism E03.9 Post-polio syndrome G14 Candidiasis of mouth and esophagus B37.81; B37.0 History of DVT (deep vein thrombosis) Z86.718 Severe protein-calorie malnutrition E43 DVT prophylaxis Z29.9 Vitamin D deficiency E55.9 Hypophosphatemia E83.39 Acute metabolic encephalopathy G93.41 Urinary retention R33.9
[2022-08-20] MEDS: oxyCODONE HCL IR 5 MG TAB (IMMEDIATE RELEASE) PO PRN (21:20)
[2022-08-20] MEDS: MELATONIN 3 MG TAB PO SCH (21:21)
[2022-08-20] MEDS: MIRTAZAPINE TAB 15 MG TAB PO SCH (21:21)
[2022-08-20] MEDS: HEPARIN 100 UNIT/ML 5ML FLUSH FLUSH PRN (21:25)
--- NOTE | 2022-08-20 22:40 | Electrocardiogram Report ---
Test Reason : Blood Pressure : / mmHG Vent. Rate : 128 BPM Atrial Rate : 057 BPM P-R Int : 000 ms QRS Dur : 082 ms QT Int : 276 ms P-R-T Axes : 000 047 180 degrees QTc Int : 402 ms Accelerated Junctional rhythm with Premature ventricular complexes or Fusion complexes Low voltage QRS Nonspecific ST and T wave abnormality Abnormal ECG When compared with ECG of 09-AUG-2022 16:24, Junctional rhythm has replaced Sinus rhythm Vent. rate has increased BY 43 BPM Confirmed by Osvaldo Perkins ([id number]) on 08/20/2022 10:40:13 PM Referred By: REFERRED SELF Confirmed By:Osvaldo Perkins
[2022-08-21] MEDS: LEVOTHYROXINE SODIUM 100 MCG TABLET PO SCH (06:21)
[2022-08-21] MEDS: APIXABAN 5 MG TABLET PO SCH ×2 (08:11→21:26)
[2022-08-21] MEDS: CEROVITE ADV FORMULA TAB PO SCH (08:11)
[2022-08-21] MEDS: PANTOprazole 40 MG TAB PO SCH (08:11)
[2022-08-21] MEDS: DOCUSATE SODIUM 100 MG CAP PO SCH (08:11)
[2022-08-21] MEDS: oxyBUTYnin chloride 5 MG TAB PO SCH ×3 (08:11→21:25)
[2022-08-21] MEDS: CALCIUM CARBONATE 500 MG CHEWABLE TAB PO SCH ×5 (08:11→21:35)
[2022-08-21] MEDS: FIRST - Mouthwash BLM 119 ML PO SCH (08:12)
[2022-08-21] MEDS: POLYETHYLENE (MIRALAX) 17 GM PACK PO SCH ×2 (08:12→08:43)
[2022-08-21] MEDS: SUCRALFATE 1 GM/10 ML UDC PO SCH (08:12)
[2022-08-21 08:29] LABS: BUN Creatinine Ratio 24.3 (10-20); Calcium 7.5 mg/dl (8.6-10.3); Creatinine Clr Calc Pharmacy 79.7 ml/min; Est GFR (African American) 99.7 ml/min; Est GFR (Non-African American) 86.1 ml/min; Potassium 3.4 mmol/L (3.5-5.1)
[2022-08-21] MEDS ORDERED: POTASSIUM CHLORIDE CRTAB 20 MEQ TABCR PO STA (08:40)
--- NOTE | 2022-08-21 17:30 | Palliative Care Progress Note ---
Date of Service August 21, 2022 Assessment & Plan (1) Weakness: Plan: Plan has been transfer to [facility] when stable for rehab with goal of improving functional status for further treatment. He has not been medically stable for transfer to [facility]. (2) Palliative care encounter: Plan: Extensive meeting, over one hour, with Mehran and his , along with Dr. Greenwood. Goals of care reviewed. Mehran's current status and challenges reviewed with Dr. Greenwood. We expressed concern that despite optimal treatment and Mehran's best effort, rehab potential is likely limited and possibility of additional treatment is likely not realistic. They understand that he is high risk for further complications with his malignancy, peritoneal carcinomatosis, hypoalbuminemia, pleural effusions etc. Mehran has said multiple times that he is concerned that he is not going to get better. His greatest concern at this time is Paulina's wellbeing. When asked what was most important to him knowing his current situation, Mehran initially told me that Paulina was most important but also talked about his desire to have a peaceful . He has witnessed difficult deaths in his family and this has been a recurring thought for him. We discussed his code status discrepancy with desire to have a peaceful and reviewed statistical likelihood that CPR would almost certainly not have the desired effect of prolonging his life in a meaningful way, but could cause harm and suffering for him at his dying time. They tell me that they have living nicholas which indicate that he would not want resuscitation. With their consent, will change code status to DNR per his wishes. Given his wish for peaceful , we discussed option of hospice care and what would be involved with that. Paulina does not have family support to care for him at home and they would need to hire additional caregivers to manage. We also discussed option for SNF with initial trial of therapy and transition to hospice when appropriate. Answered their questions about insurance coverage and specifics of the plans. They would like to consider this together to determine what feels like the best fit for them. Admission and Anticipated Discharge Date Admission Date: August 04, 2022 Subjective Eating but has to find foods that are palatable with his altered taste. Feels weak. Had to rest of getting up to bathroom earlier today. Denies pain. Continues to have tachycardia at times. Review of Systems Review of Systems: ESAS Pain 0/3 Dyspnea 1/3 Nausea 1/3 Drowsiness 1/3 Anxiety 0/3 Physical Exam Constitutional: + ill appearing ENMT: Mouth: + dry oral mucous membranes Respiratory: normal respiratory effort and + cough; no labored breathing Cardiovascular: sinus tachycardia, LE edema Gastrointestinal (Abdomen): distended, ascites Musculoskeletal: Extremities: + muscle atrophy Neurologic: Speech / Cognition: normal cognition Results & Data Vital Signs (Past 12 Hours) Vital Signs Temp Pulse Pulse Resp BP Pulse Ox O2 Del Method 08/21/22 15:51 97.5 F L 83 18 114/53 L 96 Room Air 08/21/22 15:10 72 08/21/22 11:39 97.5 F L 104 H 18 117/56 L 96 Nasal Cannula 08/21/22 08:00 69 08/21/22 09:34 Nasal Cannula 08/21/22 07:49 98.1 F 97 H 18 131/56 L 93 Nasal Cannula O2 Flow Rate 08/21/22 15:51 08/21/22 15:10 08/21/22 11:39 3 08/21/22 08:00 08/21/22 09:34 08/21/22 07:49 2 PG Care Time/CCT Total # of Minutes Spent Total Time Spent: 100 Total Time Spent with Patient: Total time spent is greater than 50% in coordination of care (as documented) at patient's floor/unit and/or counseling patient:[id number] goals of care, code status, hospice, patient and family education and support Coding Level of Care Code 19820 SUB INP/OBS CARE 3/50MIN Diagnoses Weakness R53.1 Palliative care encounter Z51.5
--- NOTE | 2022-08-21 21:18 | Hospitalist Progress Note ---
Date of Service August 21, 2022 Assessment & Plan (1) Goals of care, counseling/discussion: Plan: Extensive discussion with pt, his , Bowen, and myself today. See subjective portion of this note for details. Up until this point the plan was attempting rehab at [facility] with the hope of regaining enough strength to consider "low-dose" chemo in the future. His had coordinated a telehealth visit with [facility] to discuss any other options available to Mr Wiseman. Mr Wiseman himself has said all week that he accepts the fact that he is going to continue to decline and ultimately pass away. He has been very realistic that the chances of getting stronger and being able to do more chemo is very unlikely. To this point Mrs Wiseman was very hopeful that rehab was an option. She now realizes that "rehabbing" potential is very poor and that his ability to get stronger and more conditioned is unlikely. We discussed hospice in detail. Discussed home with hospice vs SNF w/ hospice vs other. Appreciate Dr Wiseman's consultation and assistance today. Mr Wiseman is now DNR/DNI. Mr & Mrs Wiseman plan to discuss their wishes for d/c plan and will let us know what they decide. I suspect they are leaning towards SNF +/- hospice there but will await their final wishes. (2) Hypocalcemia: Plan: acute on chronic acute component today - 2nd to lasix diuresis and compounded by low K/low Mag chroncic - 2nd to vit D deficiency possibly 2nd to chemo although both chemo agents (gemcitabine & abraxane), per the literature, rarely cause low calcium (there are case reports only) 25-OH vit D level low at 19 - started vitamin D supplementation earlier this stay calcium corrected today is >8 following IV replacement yesterday and ongoing PO replacement cont calcium carbonate 1000mg QID by mouth replace low mag and K as needed elevated PTH consistent with vit D deficiency patient does not have bone mets from his cancer thus osteoblastic mets causing low calcium unlikely (3) Hypokalemia: Plan: 2nd to lasix and other electrolyte issues replace again today with PO replace low Ca and mag as needed repeat BMP/mag/Ca am (4) Hypomagnesemia: Plan: 2nd to lasix ongoing replacement prn (5) Atrial fibrillation with RVR: Plan: 08/19/22 - episode of rapid a.fib lasting about 1 hour patient had gotten up from the bed to use the commode and developed dizziness with significant drop in SBP to the 60s he was also tachycardic with HRs in the 130-140 range. tele strips appeared c/w rapid a.fib. 12-lead EKG obtained - rapid a.fib confirmed. given the a.fib, high risk of DVT/PE due to advanced cancer, and prior h/o DVT started Eliquis 5mg BID. fortunately has converted back to NSR. cont to replace low lytes. cont telemetry. (6) Anasarca: Plan: 2nd to low albumin, abdominal carcinomatosis, copious IV fluids earlier this stay, etc. we have been attempting to diurese him but at this point may be intravascularly dry despite ongoing 3rd spacing unfortunately have had to stop diuretics due to such as well as low K/Ca/mag (7) Cellulitis of right leg: Plan: resolved. completed full course of IV/PO abx earlier this stay. 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 follows with Dr Arroyo, [facility]. Recently initiated gemcitabine and abraxane. last chemo was 07/31/22. Recent CT a/p findings show progressive enlargement of primary pancreatic mass and carcinomatosis findings are also worse. On exam his ascites is worse. he denies having pain thus defer on therapeutic paracentesis for now. Dr Arroyo rechecked CA 19-9 level - 2155 - worse than several weeks prior. I spoke with Dr Arroyo this week. Pt's had requested a 2nd opinion re: any additional treatment options. He has a scheduled telehealth appointment with [facility] on 08/26 to discuss any remaining options. HOWEVER - cont to have recurrent problems affecting multiple systems and is making poor progress on grand scale. See #1 above re: details of today's discussion. (9) SVT (supraventricular tachycardia): Plan: encountered earlier in the stay 2nd to low calcium? no recurrent episodes since but did have rapid a.fib 08/19/22 -- see above cont to monitor (10) Paralytic ileus of large intestine: Plan: resolved moving his bowels regularly now multifactorial etiology - electrolyte disturbances, copious amounts of imodium at home pre-hospital, immobility, etc. cannot rule out some effect of his carcinomatosis contributing to such but much less likely. CT a/p 08/09/22 without obstruction. (11) Antineoplastic chemotherapy induced pancytopenia: Plan: resolved cbc is stable. (12) Neutropenia: Plan: 2nd to recent chemotherapy for stage 4 pancreatic ca -- resolved. 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 (15) Candidiasis of mouth and esophagus: Plan: resolved stopped magic mouthwash and nystatin solution (16) History of DVT (deep vein thrombosis): Plan: 1970s by report (17) Severe protein-calorie malnutrition: Plan: 15 pounds of weight loss - 2nd to stage 4 cancer - over the last 2 months cont boost, MVI, etc eating improved mildly with remeron (18) DVT prophylaxis: Plan: Eliquis 5mg BID (19) Vitamin D deficiency: Plan: level = 18 cont vit D supplementation (20) Hypophosphatemia: Plan: replaced resolved (21) Acute metabolic encephalopathy: Plan: likely multifactorial - hospital psychosis, infection (cellulitis), etc. checked CT head - no mets, ICH, etc. this has resolved (22) Urinary retention: Plan: cont mcginnis has severe scrotal edema from 3rd spacing Plan see #1 above see subjective portion of this note total time today with care coordination and bedside discussion - 80 minutes Admission and Anticipated Discharge Date Admission Date: August 04, 2022 Subjective very lengthy discussion held at bedside today with pt, pt's Paulina, Dr Wiseman, and myself. bedside discussion was minimum 60 minutes. we reviewed all medical issues affecting him to date including but not limited to volume overload state from hypoalbuminemia, electrolyte issues, o2 requirement from pulm edema, difficulty "rehabbing" knowing that he will require oxygen/mcginnis, high risk of readmission to hospital due to ongoing/multiple medical issues, etc answered 's questions regarding his medical status answered 's questions regarding levels of therapy (home with home PT/OT vs SNF vs rehab) discussed that Mr Wiseman can barely stand - needs considerable assistance just to move from the bed discussed that the chances of him getting strong enough to pursue additional chemo down the line is slim to none he was very consistent in what he told us today - again stated he recognizes that his time is short and that he likely "won't get better" he told Dr Wiseman and myself that he wants a peaceful, comfortable he has witnessed family members while having pain - he wants to avoid this at all costs he does not feel that going home will work - he doesn't want to burden his continues to have struggles eating due to issues with taste Dr Wiseman confirmed with patient and his that he is DNR/DNI - this was changed in computer we discussed home w/ hospice vs SNF with hospice telemetry - continues to have episodes of SVT and/or a.fib and/or sinus tach with frequent ectopy he is asymptomatic from such Review of Systems Review of Systems: gen - fatigue, weak, anorexia cv - no cp pulm - ongoing cough GI - no pain musculo - no pain Physical Exam Physical Exam: gen - NAD, looks tired and very weak, tearful during our discussion, coughing at times pulm - no increased work of breathing psych - restricted affect; a/o x 3; tearful neuro - no facial droop, speech clear extremities - mild edema b/l Results & Data Results & Data Vital Signs (Past 12 Hours) Vital Signs Temp Pulse Pulse Resp BP Pulse Ox O2 Del Method 08/21/22 19:05 36.6 C 102 H 16 99/66 L 95 Nasal Cannula 08/21/22 15:51 36.4 C L 83 18 114/53 L 96 Room Air 08/21/22 15:10 72 08/21/22 11:39 36.4 C L 104 H 18 117/56 L 96 Nasal Cannula 08/21/22 09:34 Nasal Cannula O2 Flow Rate 08/21/22 19:05 2 08/21/22 15:51 08/21/22 15:10 08/21/22 11:39 3 08/21/22 09:34 Laboratory Results Laboratory Results - last 24 hr 08/21/22 07:30 Sodium 137 Potassium 3.4 L D Chloride 103 Carbon Dioxide 29 Anion Gap 5 BUN 17 Creatinine 0.70 Est Cr Clr Drug Dosing 79.7 Est GFR ( Amer) 99.7 Est GFR (Non-Af Amer) 86.1 BUN/Creatinine Ratio 24.3 H Glucose 106 H Calcium 7.5 L Magnesium 2.0 PG Care Time/CCT Total # of Minutes Spent Total Time Spent with Patient: Total time spent is greater than 50% in coordination of care (as documented) at patient's floor/unit and/or counseling patient: Prolonged Care Time Prolonged Care Time: Yes Total Prolonged Care Time: 80 Coding Level of Care Code 09289 SUB INP/OBS CARE 3/50MIN (25 - SIGNIFICANT, SEPARATELY IDENTIFIABLE ) Diagnoses Goals of care, counseling/discussion Z71.89 Hypocalcemia E83.51 Hypokalemia E87.6 Hypomagnesemia E83.42 Atrial fibrillation with RVR I48.91 Anasarca R60.1 Cellulitis of right leg L03.115 Adenocarcinoma carcinomatosis C80.0 SVT (supraventricular tachycardia) I47.1 Paralytic ileus of large intestine K56.0 Antineoplastic chemotherapy induced pancytopenia D61.810; T45.1X5A Neutropenia D70.9 Hypothyroidism E03.9 Post-polio syndrome G14 Candidiasis of mouth and esophagus B37.81; B37.0 History of DVT (deep vein thrombosis) Z86.718 Severe protein-calorie malnutrition E43 DVT prophylaxis Z29.9 Vitamin D deficiency E55.9 Hypophosphatemia E83.39 Acute metabolic encephalopathy G93.41 Urinary retention R33.9 Additional Codes Prolonged Care Time - Prolonged Care Time: Yes ([id number])
[2022-08-21] MEDS: MELATONIN 3 MG TAB PO SCH ×2 (21:25→21:35)
[2022-08-21] MEDS: MIRTAZAPINE TAB 15 MG TAB PO SCH (21:26)
[2022-08-22] MEDS: LEVOTHYROXINE SODIUM 100 MCG TABLET PO SCH (06:21)
[2022-08-22 07:54] LABS: BUN Creatinine Ratio 24.2 (10-20); Calcium 7.2 mg/dl (8.6-10.3); Creatinine Clr Calc Pharmacy 84.5 ml/min; Est GFR (African American) 102.2 ml/min; Est GFR (Non-African American) 88.2 ml/min; Potassium 3.5 mmol/L (3.5-5.1)
[2022-08-22] MEDS: oxyBUTYnin chloride 5 MG TAB PO SCH ×3 (07:55→19:55)
[2022-08-22] MEDS: CALCIUM CARBONATE 500 MG CHEWABLE TAB PO SCH ×4 (07:56→19:56)
[2022-08-22] MEDS: APIXABAN 5 MG TABLET PO SCH ×2 (07:56→19:55)
[2022-08-22] MEDS: CEROVITE ADV FORMULA TAB PO SCH (07:57)
[2022-08-22] MEDS: PANTOprazole 40 MG TAB PO SCH (07:57)
[2022-08-22] MEDS: POLYETHYLENE (MIRALAX) 17 GM PACK PO SCH (07:58)
[2022-08-22] MEDS ORDERED: ERGOCALCIFEROL 50,000 UNITS 1250 MCG CAP PO SCH (09:00)
[2022-08-22] MEDS: HEPARIN 100 UNIT/ML 5ML FLUSH FLUSH PRN (15:01)
[2022-08-22] MEDS ORDERED: BUMETANIDE 1 MG in SYRINGE 0 ML IV ONE (18:18)
[2022-08-22] MEDS ORDERED: guaiFENesin/CODEINE 100MG/10MG 5ML UDC PO STA (18:18)
[2022-08-22] MEDS: BENZONATATE 100 MG CAPSULE PO SCH (19:53)
[2022-08-22] MEDS: MIRTAZAPINE TAB 15 MG TAB PO SCH (19:54)
[2022-08-22] MEDS: MELATONIN 3 MG TAB PO SCH (19:56)
--- NOTE | 2022-08-22 20:07 | Hospitalist Progress Note ---
Date of Service August 22, 2022 Assessment & Plan (1) Anasarca: Plan: 2nd to low albumin, abdominal carcinomatosis, copious IV fluids earlier this stay, etc. His pulmonary edema is clinically worse today - likely due to frequent runs of atrial based dysrhythmia. bumex 1mg IV x 1 now. schedule tessalon pearles 100mg TID. codeine cough syrup x 1 now, then prn thereafter. will need to watch electrolytes carefullly. bmp/mag in am. can't exclude developing infection but if any worsening repeat cxr. (2) Hypocalcemia: Plan: acute on chronic acute component today - 2nd to lasix diuresis and compounded by low K/low Mag chroncic - 2nd to vit D deficiency possibly 2nd to chemo although both chemo agents (gemcitabine & abraxane), per the literature, rarely cause low calcium (there are case reports only) 25-OH vit D level low at 19 - started vitamin D supplementation earlier this stay calcium corrected today is >8 following IV replacement yesterday and ongoing PO replacement cont calcium carbonate 1000mg QID by mouth replace low mag and K as needed elevated PTH consistent with vit D deficiency patient does not have bone mets from his cancer thus osteoblastic mets causing low calcium unlikely (3) Hypokalemia: Plan: 2nd to lasix and other electrolyte issues K 3.5 today repeat BMP/mag/Ca am (4) Hypomagnesemia: Plan: 2nd to lasix ongoing replacement prn (5) Atrial fibrillation with RVR: Plan: 08/19/22 - episode of rapid a.fib lasting about 1 hour patient had gotten up from the bed to use the commode and developed dizziness with significant drop in SBP to the 60s he was also tachycardic with HRs in the 130-140 range. tele strips appeared c/w rapid a.fib. 12-lead EKG obtained - rapid a.fib confirmed. given the a.fib, high risk of DVT/PE due to advanced cancer, and prior h/o DVT started Eliquis 5mg BID. fortunately has converted back to NSR. cont to replace low lytes. cont telemetry. (6) Cellulitis of right leg: Plan: resolved. completed full course of IV/PO abx earlier this stay. (7) Adenocarcinoma carcinomatosis: Plan: stage [address] pancreatic ca[address] follows with [address] Arroyo, [facility]. Recently initiated gemcitabine and abraxane. last chemo was 07/31/22. Recent CT a/p findings show progressive enlargement of primary pancreatic mass and carcinomatosis findings are also worse. On exam his ascites is worse. he denies having pain thus defer on therapeutic paracentesis for now. Dr Arroyo rechecked CA 19-9 level - 2155 - worse than several weeks prior. I spoke with Dr Arroyo this week. Pt's had requested a 2nd opinion re: any additional treatment options. He has a scheduled telehealth appointment with [facility] on 08/26 to discuss any remaining options. HOWEVER - cont to have recurrent problems affecting multiple systems and is making poor progress on grand scale. likely to SNF w/ hospice (8) SVT (supraventricular tachycardia): Plan: encountered earlier in the stay and has had runs lately as well cont to monitor poor candidate for standing beta afshin due to low-normal BPs (9) Paralytic ileus of large intestine: Plan: resolved moving his bowels regularly now multifactorial etiology - electrolyte disturbances, copious amounts of imodium at home pre-hospital, immobility, etc. cannot rule out some effect of his carcinomatosis contributing to such but much less likely. CT a/p 08/09/22 without obstruction. (10) Antineoplastic chemotherapy induced pancytopenia: Plan: resolved cbc is stable. (11) Neutropenia: Plan: 2nd to recent chemotherapy for stage 4 pancreatic ca -- resolved. 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 (14) Candidiasis of mouth and esophagus: Plan: resolved stopped magic mouthwash and nystatin solution (15) History of DVT (deep vein thrombosis): Plan: 1970s by report (16) Severe protein-calorie malnutrition: Plan: 15 pounds of weight loss - 2nd to stage 4 cancer - over the last 2 months cont boost, MVI, etc eating improved mildly with remeron but now worse again (17) DVT prophylaxis: Plan: Eliquis 5mg BID (18) Vitamin D deficiency: Plan: level = 18 cont vit D supplementation (19) Hypophosphatemia: Plan: replaced resolved (20) Acute metabolic encephalopathy: Plan: likely multifactorial - hospital psychosis, infection (cellulitis), etc. checked CT head - no mets, ICH, etc. this has resolved (21) Urinary retention: Plan: jordyn mcginnis has severe scrotal edema from 3rd spacing (22) Goals of care, counseling/discussion: Plan: see documentation from my progress note 08/21/22 pt today stated he wishes to go to [facility] and likely have hospice there Admission and Anticipated Discharge Date Admission Date: August 04, 2022 Subjective pt states he had an episode of "hyperventilating" today he was laying flat in bed when this happened; had to sit up it lasted a while then finally resolved on its own he continues to have no appetite scrotal discomfort continues tele - no a.fib overnight; brief episode of PAT yesterday that self-resolved pt's 2 sisters came to visit today Review of Systems Review of Systems: gen - ongoing fatigue, weakness, anorexia cv - no chest pain pulm - severe cough, occasional sputum GI - no pain despite ascites Physical Exam Physical Exam: gen - NAD, looks tired and weak as previous, severe cough today neck - no JVD at 45 degrees heart - borderline tachy, s1 s2, no murmur; irregular lungs - diffuse b/l basilar rales, coughing abd - distended, NT ext - 1 + edema b/l; pulses 2+ b/l Results & Data Results & Data Vital Signs (Past 12 Hours) Vital Signs Temp Pulse Pulse Resp BP Pulse Ox O2 Del Method 08/22/22 14:30 73 08/22/22 14:50 36.6 C 84 16 121/52 L 96 Nasal Cannula 08/22/22 11:13 36.6 C 88 16 114/54 L 91 Nasal Cannula O2 Flow Rate 08/22/22 14:30 08/22/22 14:50 2 08/22/22 11:13 2 Laboratory Results Laboratory Results - last 24 hr 08/22/22 06:40 Sodium 137 Potassium 3.5 Chloride 105 Carbon Dioxide 28 Anion Gap 4 BUN 16 Creatinine 0.66 Est Cr Clr Drug Dosing 84.5 Est GFR ( Amer) 102.2 Est GFR (Non-Af Amer) 88.2 BUN/Creatinine Ratio 24.2 H Glucose 112 H Calcium 7.2 L PG Care Time/CCT Total # of Minutes Spent Total Time Spent with Patient: Total time spent is greater than 50% in coordination of care (as documented) at patient's floor/unit and/or counseling patient: Coding Level of Care Code 74393 SUB INP/OBS CARE 2/35MIN Diagnoses Anasarca R60.1 Hypocalcemia E83.51 Hypokalemia E87.6 Hypomagnesemia E83.42 Atrial fibrillation with RVR I48.91 Cellulitis of right leg L03.115 Adenocarcinoma carcinomatosis C80.0 SVT (supraventricular tachycardia) I47.1 Paralytic ileus of large intestine K56.0 Antineoplastic chemotherapy induced pancytopenia D61.810; T45.1X5A Neutropenia D70.9 Hypothyroidism E03.9 Post-polio syndrome G14 Candidiasis of mouth and esophagus B37.81; B37.0 History of DVT (deep vein thrombosis) Z86.718 Severe protein-calorie malnutrition E43 DVT prophylaxis Z29.9 Vitamin D deficiency E55.9 Hypophosphatemia E83.39 Acute metabolic encephalopathy G93.41 Urinary retention R33.9 Goals of care, counseling/discussion Z71.89
[2022-08-22] MEDS ORDERED: DIGOXIN 250 MCG in SYRINGE 9 ML IV ONE (22:30)
[2022-08-22] MEDS: ALBUMIN 25% 100 mL 25 GM/100 ML VIAL IV SCH (23:24)
[2022-08-23] MEDS ORDERED: guaiFENesin/CODEINE 100MG/10MG 5ML UDC PO PRN
[2022-08-23] MEDS: ALBUMIN 25% 100 mL 25 GM/100 ML VIAL IV SCH (01:15)
--- NOTE | 2022-08-23 02:39 | Communication Note ---
Date of Service: August 23, 2022 Patient was in afib RVR for a few hours overnight. Converted into NSR shortly after administration of digoxin and albumin. Resident Activity Tracking Resident Involvement: Resident Care Provided Care Provided: Adult [facility]
[2022-08-23] MEDS: oxyCODONE HCL IR 5 MG TAB (IMMEDIATE RELEASE) PO PRN ×2 (05:42→20:05)
[2022-08-23] MEDS: LEVOTHYROXINE SODIUM 100 MCG TABLET PO SCH (05:43)
[2022-08-23 08:11] LABS: BUN Creatinine Ratio 23.9 (10-20); Calcium 7.4 mg/dl (8.6-10.3); Creatinine Clr Calc Pharmacy 83.2 ml/min; Est GFR (African American) 101.5 ml/min; Est GFR (Non-African American) 87.6 ml/min; Magnesium 1.8 mg/dl (1.7-2.4); Potassium 3.3 mmol/L (3.5-5.1)
[2022-08-23] MEDS: CEROVITE ADV FORMULA TAB PO SCH (08:18)
[2022-08-23] MEDS: oxyBUTYnin chloride 5 MG TAB PO SCH ×3 (08:18→20:07)
[2022-08-23] MEDS: PANTOprazole 40 MG TAB PO SCH (08:18)
[2022-08-23] MEDS: BENZONATATE 100 MG CAPSULE PO SCH ×3 (08:19→20:06)
[2022-08-23] MEDS: APIXABAN 5 MG TABLET PO SCH (08:19)
[2022-08-23] MEDS: POLYETHYLENE (MIRALAX) 17 GM PACK PO SCH (08:21)
[2022-08-23] MEDS: CALCIUM CARBONATE 500 MG CHEWABLE TAB PO SCH ×5 (08:22→20:53)
[2022-08-23] MEDS ORDERED: BUMETANIDE 1 MG in SYRINGE 0 ML IV ONE (09:45)
[2022-08-23] MEDS: POTASSIUM CHLORIDE CRTAB 20 MEQ TABCR PO SCH ×3 (10:55→20:22)
[2022-08-23] MEDS: HEPARIN 100 UNIT/ML 5ML FLUSH FLUSH PRN ×3 (10:57→20:06)
[2022-08-23] MEDS: ONDANSETRON INJ 2 MG/ML 2 ML VIAL IV PRN ×3 (11:08→20:06)
[2022-08-23] MEDS ORDERED: DIGOXIN 250 MCG in SYRINGE 9 ML IV SCH (16:00)
--- NOTE | 2022-08-23 19:49 | Hospitalist Progress Note ---
Date of Service August 23, 2022 Assessment & Plan (1) Anasarca: Plan: 2nd to low albumin, abdominal carcinomatosis, copious IV fluids earlier this stay, etc. His pulmonary edema worsened in the last 24 hours - likely due to frequent runs of atrial based dysrhythmia. bumex 1mg IV x 1 again today. cont scheduled tessalon pearles 100mg TID for cough. codeine cough syrup prn. can't exclude developing infection but if any worsening repeat cxr. at risk of such due to vomiting overnight. (2) Coffee ground emesis: Plan: gastritis vs PUD vs esophagitis vs other. stop Eliquis. check cbc am. convert PO PPI to IV and give twice daily. if any recurrence will downgrade diet. (3) Acute diastolic CHF (congestive heart failure): Plan: s/p bumex yesterday and again today most of the current volume overload is from severe hypoalbuminemia and 3rd spacing frequent a.fib and SVT/PAT likely contributing as well (4) Hypocalcemia: Plan: acute on chronic acute - due to lasix at times chronic - 2nd to vit D deficiency possibly 2nd to chemo although both chemo agents (gemcitabine & abraxane), per the literature, rarely cause low calcium (there are case reports only) 25-OH vit D level low at 19 - started vitamin D supplementation earlier this stay cont calcium carbonate 1000mg QID by mouth replace low mag and K as needed elevated PTH consistent with vit D deficiency patient does not have bone mets from his cancer thus osteoblastic mets causing low calcium unlikely (5) Hypokalemia: Plan: 2nd to lasix and other electrolyte issues replace K again today repeat BMP/mag/Ca am (6) Hypomagnesemia: Plan: 2nd to lasix ongoing replacement prn (7) Atrial fibrillation with RVR: Plan: multiple episodes of such over the last several days usually self-terminate / convert back to NSR loaded with IV digoxin overnight have to stop Eliquis due to coffee-ground emesis (8) Cellulitis of right leg: Plan: present on admission early in the stay. fully resolved. completed full course of IV/PO abx earlier this stay. 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 with Dr Arroyo, [facility]. Recently initiated gemcitabine and abraxane. last chemo was 07/31/22. Recent CT a/p findings show progressive enlargement of primary pancreatic mass and carcinomatosis findings are also worse. Dr Arroyo rechecked CA 19-9 level - 2155 - worse than several weeks prior despite taking standard chemo. Apparently Pt's had requested a 2nd opinion re: any additional treatment options. He has a previously scheduled telehealth appointment with [facility] on 08/26 to discuss any remaining options. HOWEVER - he cont to have recurrent problems affecting multiple systems and is making poor progress on grand scale. likely to SNF w/ hospice we had lengthy discussion today about going to [facility] with hospice and what that means for him she asked if I thought he would actually make it to [facility] given the numerous issues he has had over the last few days we had kusum discussion about these issues we discussed transition to comfort care measures only and explained what that meant Mr Wiseman stated he wasn't ready for comfort care measures just yet however, he might consider such once his son arrives from [place] and they have had time to talk and catch up (10) SVT (supraventricular tachycardia): Plan: intermittent throughout this hospital stay cont to monitor poor candidate for standing beta afshin due to low-normal BPs (11) Paralytic ileus of large intestine: Plan: resolved moving his bowels regularly now multifactorial etiology - electrolyte disturbances, copious amounts of imodium at home pre-hospital, immobility, etc. cannot rule out some effect of his carcinomatosis contributing to such but much less likely. CT a/p 08/09/22 without obstruction. (12) Antineoplastic chemotherapy induced pancytopenia: Plan: resolved (13) Neutropenia: Plan: 2nd to recent chemotherapy for stage 4 pancreatic ca -- resolved. 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 (16) Candidiasis of mouth and esophagus: Plan: resolved stopped magic mouthwash and nystatin solution (17) History of DVT (deep vein thrombosis): Plan: 1970s by report (18) Severe protein-calorie malnutrition: Plan: 15 pounds of weight loss - 2nd to stage 4 cancer - over the last 2 months cont boost, MVI, etc eating improved mildly with remeron but now worse again (19) DVT prophylaxis: Plan: stopping Eliquis 5mg BID due to #2 (20) Vitamin D deficiency: Plan: level = 18 cont vit D supplementation for now but once converted to comfort care at some point then stop meds such as this (21) Hypophosphatemia: Plan: replaced resolved (22) Acute metabolic encephalopathy: Plan: likely multifactorial - hospital psychosis, infection (cellulitis), etc. checked CT head - no mets, ICH, etc. this has resolved (23) Urinary retention: Plan: cont ras has severe scrotal edema from 3rd spacing (24) Goals of care, counseling/discussion: Plan: see documentation from my progress note 08/21/22 again pt stated today he wishes to go to [facility] and have hospice there Plan 's questions answered to the best of my ability patient continuing to decline Admission and Anticipated Discharge Date Admission Date: August 04, 2022 Subjective overnight patient had another episode of rapid a.fib he was given IV digoxin he ultimately converted back to NSR he also had 2 episodes of what sounds like coffee-ground emesis this awoke him from sleep he is still passing flatus and stool he was able to eat breakfast/lunch today despite the overnight vomiting at bedside today she had multiple questions about the plan of care she mentioned that Mr Wiseman's son is coming in from [place] he also has a daughter that lives in [place] but they are relatively estranged his breathing is more comfortable than yesterday cough remains but not as harsh he denies pain in any location scrotal pain is better Review of Systems Review of Systems: gen - very tired today cv - no chest pain pulm - dyspnea a little better s/p bumex yesterday & today GI - distended but no pain ; coffee-ground emesis as above Physical Exam Physical Exam: gen - NAD, looks tired and weak, not as dyspneic today; cough not as severe mouth - MMM neck - no JVD at 45 degrees heart - regular rate, s1 s2, no murmur; irregular lungs - diffuse b/l basilar rales - somewhat better but still severe; decreased BS bases abd - distended, NT, metastatic lesion in abd wall on left unchanged, ascites ext - 1 + edema b/l; pulses 2+ b/l psych - tired, only scant confusion noted Results & Data Results & Data Vital Signs (Past 12 Hours) Vital Signs Temp Pulse Pulse Resp BP BP Pulse Ox 08/23/22 14:02 88 08/23/22 15:02 36.5 C 86 16 103/48 L 97 08/23/22 11:33 36.7 C 94 H 16 107/56 L 97 08/23/22 08:30 08/23/22 07:57 36.7 C 95 H 16 113/59 L 93 O2 Del Method O2 Flow Rate 08/23/22 14:02 08/23/22 15:02 Nasal Cannula 3 08/23/22 11:33 Nasal Cannula 3 08/23/22 08:30 Nasal Cannula 2 08/23/22 07:57 Nasal Cannula 3 Laboratory Results Laboratory Results - last 24 hr 08/23/22 08/23/22 07:29 Unknown Sodium 137 Potassium 3.3 L Chloride 105 Carbon Dioxide 29 Anion Gap 3 BUN 16 Creatinine 0.67 Est Cr Clr Drug Dosing 83.2 Est GFR ( Amer) 101.5 Est GFR (Non-Af Amer) 87.6 BUN/Creatinine Ratio 23.9 H Glucose 121 H Calcium 7.4 L Magnesium 1.8 Gastric Fluid pH Cancelled Gastric Occult Blood Cancelled PG Care Time/CCT Total # of Minutes Spent Total Time Spent with Patient: Total time spent is greater than 50% in coordination of care (as documented) at patient's floor/unit and/or counseling patient: Coding Level of Care Code 73591 SUB INP/OBS CARE 3/50MIN Diagnoses Anasarca R60.1 Coffee ground emesis K92.0 Acute diastolic CHF (congestive heart failure) I50.31 Hypocalcemia E83.51 Hypokalemia E87.6 Hypomagnesemia E83.42 Atrial fibrillation with RVR I48.91 Cellulitis of right leg L03.115 Adenocarcinoma carcinomatosis C80.0 SVT (supraventricular tachycardia) I47.1 Paralytic ileus of large intestine K56.0 Antineoplastic chemotherapy induced pancytopenia D61.810; T45.1X5A Neutropenia D70.9 Hypothyroidism E03.9 Post-polio syndrome G14 Candidiasis of mouth and esophagus B37.81; B37.0 History of DVT (deep vein thrombosis) Z86.718 Severe protein-calorie malnutrition E43 DVT prophylaxis Z29.9 Vitamin D deficiency E55.9 Hypophosphatemia E83.39 Acute metabolic encephalopathy G93.41 Urinary retention R33.9 Goals of care, counseling/discussion Z71.89
[2022-08-23] MEDS: PANTOprazole 40 MG in SYRINGE 0 ML IV SCH (20:06)
[2022-08-23] MEDS: MIRTAZAPINE TAB 15 MG TAB PO SCH (20:07)
[2022-08-23] MEDS: MELATONIN 3 MG TAB PO SCH (20:07)
[2022-08-24] MEDS: PANTOprazole 40 MG in SYRINGE 0 ML IV SCH ×2 (08:08→20:12)
[2022-08-24] MEDS: LEVOTHYROXINE SODIUM 100 MCG TABLET PO SCH (08:08)
[2022-08-24] MEDS: oxyBUTYnin chloride 5 MG TAB PO SCH ×3 (08:09→20:14)
[2022-08-24] MEDS: BENZONATATE 100 MG CAPSULE PO SCH ×3 (08:09→20:14)
[2022-08-24] MEDS: POLYETHYLENE (MIRALAX) 17 GM PACK PO SCH (08:09)
[2022-08-24 08:17] LABS: Hematocrit (blood only) 23.7 % (42.0-52.0); Hemoglobin 7.8 g/dl (14.0-18.0); Mean Corpuscular Hgb Conc 32.9 g/dL (32.0-36.0); Mean Corpuscular Volume 91.2 fL (80.0-100.0); Mean Platelet Volume 10.4 fL (9.4-12.4); Platelet Count 275 K/uL (130-400); RDW Standard Deviation 53.8 fL (36.4-46.3); White Blood Count 9.05 K/ul (4.8-10.8)
[2022-08-24 10:19] LABS: BUN Creatinine Ratio 19.7 (10-20); Calcium 7.5 mg/dl (8.6-10.3); Creatinine Clr Calc Pharmacy 73.4 ml/min; Est GFR (African American) 96.4 ml/min; Est GFR (Non-African American) 83.2 ml/min; Magnesium 1.7 mg/dl (1.7-2.4); Potassium 4.2 mmol/L (3.5-5.1)
[2022-08-24] MEDS: CALCIUM CARBONATE 500 MG CHEWABLE TAB PO SCH ×4 (10:39→23:50)
[2022-08-24] MEDS ORDERED: BUMETANIDE 1 MG in SYRINGE 0 ML IV ONE (11:00)
[2022-08-24] MEDS ORDERED: MAGNESIUM SULFATE / D5W 1 GM/100 ML BAG IV ONE (11:00)
--- NOTE | 2022-08-24 12:51 | Palliative Care Progress Note ---
Date of Service August 24, 2022 Assessment & Plan (1) Palliative care encounter: Plan: Mehran has been visiting with family, working with his on financial matters and talking about giving away some of his things. He talked with me for some time about life review and things that are important to him. He is preparing for his dying time. He continues to deny fears or worries for himself with dying and remains concerned about his and support for her after his . Careful listening and support provided. Plan is to continue current level of care for now, at least until his son arrives. 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 Will follow. Admission and Anticipated Discharge Date Admission Date: August 04, 2022 Subjective Respiratory distress over the weekend but has had some diuresis and is down to 2L NC. He denies dyspnea or pain. He was able to visit with his sisters over the weekend and is expecting his son to arrive from [place] tomorrow. Review of Systems Review of Systems: ESAS Pain 0/3 Dyspnea 0/3 Nausea 0/3 Drowsiness 1/3 Physical Exam Constitutional: + frail appearing ENMT: Mouth: + dry oral mucous membranes Respiratory: normal respiratory effort; no labored breathing Cardiovascular: Rate/Rhythm: regular rate and regular rhythm Skin: warm and dry Neurologic: Speech / Cognition: normal cognition Results & Data Vital Signs (Past 12 Hours) Vital Signs Temp Pulse Pulse Resp BP Pulse Ox O2 Del Method 08/24/22 11:15 98.1 F 87 18 116/63 93 Nasal Cannula 08/24/22 08:33 Nasal Cannula 08/24/22 08:21 90 08/24/22 07:11 97.9 F 89 18 125/63 92 Nasal Cannula O2 Flow Rate 08/24/22 11:15 4 08/24/22 08:33 2 08/24/22 08:21 08/24/22 07:11 4 PG Care Time/CCT Total # of Minutes Spent Total Time Spent: 27 Total Time Spent with Patient: Total time spent is greater than 50% in coordination of care (as documented) at patient's floor/unit and/or counseling patient: [id number] Symptom management, patient support Coding Level of Care Code 28045 SUB INP/OBS CARE 2/35MIN Diagnoses Palliative care encounter Z51.5
[2022-08-24] MEDS: oxyCODONE HCL IR 5 MG TAB (IMMEDIATE RELEASE) PO PRN (20:12)
[2022-08-24] MEDS: HEPARIN 100 UNIT/ML 5ML FLUSH FLUSH PRN (20:12)
[2022-08-24] MEDS: MELATONIN 3 MG TAB PO SCH (20:14)
[2022-08-24] MEDS: MIRTAZAPINE TAB 15 MG TAB PO SCH (20:14)
--- NOTE | 2022-08-24 20:20 | Hospitalist Progress Note ---
Date of Service August 24, 2022 Assessment & Plan (1) Anasarca: Plan: 2nd to low albumin, abdominal carcinomatosis, copious IV fluids earlier this stay, volume overload/pulmonary edema in the setting of diastolic dysfunction and numerous runs of atrial-based arrhythmia, etc. His pulmonary edema worsened in the last 2-3 days - likely due to frequent runs of atrial based dysrhythmia (afib, PAT, etc). s/p bumex daily. will give bumex 1mg IV x 1 again today. cont scheduled tessalon pearles 100mg TID for cough. codeine cough syrup prn. can't exclude developing pulmonary infection but less likely -- at risk of such due to vomiting 2 nights ago. upon d/c to [facility] would place on bumex 1mg daily to try and prevent recurrent pulmonary edema. (2) Coffee ground emesis: Plan: occurred 2 nights ago. has not recurred since then. gastritis vs PUD vs esophagitis vs other. stopped Eliquis. converted PO PPI to IV and giving twice daily. if any recurrence will downgrade diet. (3) Acute diastolic CHF (congestive heart failure): Plan: s/p bumex daily last few days. give bumex IV again today. most of the current volume overload is from severe hypoalbuminemia and 3rd spacing frequent a.fib and SVT/PAT likely contributing as well (4) Hypocalcemia: Plan: acute on chronic acute - due to lasix at times chronic - 2nd to vit D deficiency possibly 2nd to chemo although both chemo agents (gemcitabine & abraxane), per the literature, rarely cause low calcium (there are case reports only) 25-OH vit D level low at 19 - started vitamin D supplementation earlier this stay cont calcium carbonate 1000mg QID by mouth replace low mag and K as needed elevated PTH consistent with vit D deficiency patient does not have obvious bone mets from his cancer thus osteoblastic mets causing low calcium unlikely (5) Hypokalemia: Plan: 2nd to lasix and other electrolyte issues K level stable today (6) Hypomagnesemia: Plan: 2nd to lasix ongoing replacement prn (7) Atrial fibrillation with RVR: Plan: multiple episodes of such over the last several days usually self-terminate / convert back to NSR spontaneously loaded with IV digoxin over the weekend for rate control will not continue since we are transitioning to hospice shortly stopped Eliquis due to coffee-ground emesis (8) Cellulitis of right leg: Plan: present on admission early in the stay. fully resolved. completed full course of IV/PO abx earlier this stay. 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 follows with Dr [facility]. Recently initiated gemcitabine and abraxane. last chemo was 07/31/22. Recent CT a/p findings show progressive enlargement of primary pancreatic mass and carcinomatosis findings are also worse. Dr Arroyo rechecked CA 19-9 level - 2155 - worse than several weeks prior despite taking standard chemo. Apparently Pt's had requested a 2nd opinion re: any additional treatment op tions. He had a previously scheduled telehealth appointment with [facility] on 08/26 to discuss any remaining options. this likely will not be pursued in light of continuing decline - he is not a candidate for any remaining chemo options. numerous palliative care discussions over the last week - appreciate assistance by Dr Wiseman from palliative patient now DNR/DNI to [facility] w/ hospice this week (10) SVT (supraventricular tachycardia): Plan: intermittent throughout this hospital stay cont to monitor poor candidate for standing beta afshin due to low-normal BPs (11) Paralytic ileus of large intestine: Plan: resolved moving his bowels regularly now multifactorial etiology - electrolyte disturbances, copious amounts of imodium at home pre-hospital, immobility, etc. cannot rule out some effect of his carcinomatosis contributing to such but much less likely. CT a/p 08/09/22 without obstruction. (12) Antineoplastic chemotherapy induced pancytopenia: Plan: resolved (13) Neutropenia: Plan: 2nd to recent chemotherapy for stage 4 pancreatic ca -- resolved. 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 (19) DVT prophylaxis: Plan: stopped Eliquis 5mg BID due to #2 (20) Vitamin D deficiency: Plan: level = 18 cont vit D supplementation for now but once converted to comfort care/hospice then stop meds such as this (21) Hypophosphatemia: Plan: replaced resolved (22) Acute metabolic encephalopathy: Plan: likely multifactorial - hospital psychosis, infection (cellulitis), etc. checked CT head - no mets, ICH, etc. this has resolved (23) Urinary retention: Plan: cont mcginnis has severe scrotal edema from 3rd spacing (24) Goals of care, counseling/discussion: Plan: see documentation from my progress note 08/21/22 Plan 's questions answered today dispo - [facility] with hospice I told & Mrs Wiseman I was going off-service and I wished them well Admission and Anticipated Discharge Date Admission Date: August 04, 2022 Subjective patient diuresed considerably overnight again his breathing has continued to improve with diuresis cough improved as well during my visit his son arrived from [place] he also reported his daughter from the [place] area is also coming to visit his Paulina was at bedside today we had a lengthy discussion about SNF placement at [facility] we discussed hospice once again Paulina mentions she spoke with the financial representative for [facility] today Bowen continues to state he is comfortable and has no pain no recurrent coffee-ground emesis Review of Systems Review of Systems: gen - weak, fatigued, tired; poor appetite cv - no chest pain; orthopnea still present but better pulm - dyspnea better; cough improved GI - distended but no pain; no nausea today; no coffee ground emesis today Physical Exam Physical Exam: gen - NAD, looks tired and weak, cachectic, no dyspnea noted today; minimal cough mouth - MMM neck - no JVD at 45 degrees today heart - regular rate, s1 s2, no murmur; irregular rhythm (ectopy) lungs - b/l basilar rales - improved; decreased BS bases; no wheezes; no increased work of breathing abd - distended, NT, metastatic lesion in abd wall on left unchanged, ascites present ext - 1 + edema b/l; pulses 2+ b/l skin - dry skin on distal right leg psych - tired, no confusion, big smile when his son entered the room Results & Data Results & Data Vital Signs (Past 12 Hours) Vital Signs Temp Pulse Pulse Resp BP Pulse Ox O2 Del Method 08/24/22 19:40 36.8 C 84 20 91/56 L 97 Nasal Cannula 08/24/22 15:10 88 08/24/22 11:15 36.7 C 87 18 116/63 93 Nasal Cannula 08/24/22 08:33 Nasal Cannula 08/24/22 08:21 90 O2 Flow Rate 08/24/22 19:40 2 08/24/22 15:10 08/24/22 11:15 4 08/24/22 08:33 2 08/24/22 08:21 Laboratory Results Laboratory Results - last 24 hr 08/24/22 08/24/22 07:37 07:37 WBC 9.05 RBC 2.60 L Hgb 7.8 L Hct 23.7 L MCV 91.2 MCH 30.0 MCHC 32.9 RDW Std Deviation 53.8 H RDW Coeff of Dinora 17.0 H Plt Count 275 MPV 10.4 Sodium 137 Potassium 4.2 D Chloride 104 Carbon Dioxide 30 Anion Gap 3 BUN 15 Creatinine 0.76 Est Cr Clr Drug Dosing 73.4 Est GFR ( Amer) 96.4 Est GFR (Non-Af Amer) 83.2 BUN/Creatinine Ratio 19.7 Glucose 88 Calcium 7.5 L Magnesium 1.7 PG Care Time/CCT Total # of Minutes Spent Total Time Spent with Patient: Total time spent is greater than 50% in coordination of care (as documented) at patient's floor/unit and/or counseling patient: Coding Level of Care Code 30493 SUB INP/OBS CARE 2/35MIN Diagnoses Anasarca R60.1 Coffee ground emesis K92.0 Acute diastolic CHF (congestive heart failure) I50.31 Hypocalcemia E83.51 Hypokalemia E87.6 Hypomagnesemia E83.42 Atrial fibrillation with RVR I48.91 Cellulitis of right leg L03.115 Adenocarcinoma carcinomatosis C80.0 SVT (supraventricular tachycardia) I47.1 Paralytic ileus of large intestine K56.0 Antineoplastic chemotherapy induced pancytopenia D61.810; T45.1X5A Neutropenia D70.9 Hypothyroidism E03.9 Post-polio syndrome G14 Candidiasis of mouth and esophagus B37.81; B37.0 History of DVT (deep vein thrombosis) Z86.718 Severe protein-calorie malnutrition E43 DVT prophylaxis Z29.9 Vitamin D deficiency E55.9 Hypophosphatemia E83.39 Acute metabolic encephalopathy G93.41 Urinary retention R33.9 Goals of care, counseling/discussion Z71.89
[2022-08-25] MEDS: oxyBUTYnin chloride 5 MG TAB PO SCH ×3 (09:58→20:10)
[2022-08-25] MEDS: LEVOTHYROXINE SODIUM 100 MCG TABLET PO SCH (09:58)
[2022-08-25] MEDS: BENZONATATE 100 MG CAPSULE PO SCH ×3 (09:58→20:12)
[2022-08-25] MEDS: PANTOprazole 40 MG in SYRINGE 0 ML IV SCH (09:59)
[2022-08-25] MEDS: POLYETHYLENE (MIRALAX) 17 GM PACK PO SCH (10:03)
[2022-08-25] MEDS: CALCIUM CARBONATE 500 MG CHEWABLE TAB PO SCH ×3 (12:29→20:12)
[2022-08-25] MEDS: SUCRALFATE 1 GM TAB PO SCH ×3 (12:30→20:10)
--- NOTE | 2022-08-25 15:13 | Hospitalist Progress Note ---
Date of Service August 25, 2022 Assessment & Plan (1) Anasarca: Plan: 2nd to low albumin, abdominal carcinomatosis, copious IV fluids earlier this stay, volume overload/pulmonary edema in the setting of diastolic dysfunction and numerous runs of atrial-based arrhythmia, etc. His pulmonary edema worsened in the last 2-3 days - likely due to frequent runs of atrial based dysrhythmia (afib, PAT, etc). s/p bumex daily. His shortness of breath at a later today may be due to excess fluid. Portable chest x-ray pending (2) Coffee ground emesis: Plan: occurred 2 nights ago. has not recurred since then. Now on oral Protonix and Carafate. Eliquis has been stopped. (3) Acute diastolic CHF (congestive heart failure): Plan: s/p bumex daily last few days. Repeat portable chest x-ray again today, August 25. He noticed shortness of breath earlier today. (4) Hypocalcemia: Plan: acute on chronic . Serial labs. Continue p.o. supplementation. Known vit D deficiency. (5) Hypokalemia: Plan: Oral supplementation. Serial labs (6) Hypomagnesemia: Plan: Oral supplementation. Serial labs (7) Atrial fibrillation with RVR: Plan: Medical management. Currently in normal sinus rhythm. He is off Eliquis due to suspected upper GI bleeding (8) Cellulitis of right leg: Plan: present on admission early in the stay. Now resolved after IV/PO abx earlier this stay. 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 Follow[address] with Dr Arroyo, [facility]. Recently initiated gemcitabine and abraxane. Last chemo was 07/31/22. Recent CT a/p findings show progressive enlargement of primary pancreatic mass and carcinomatosis findings are also worse. He had a previously scheduled telehealth appointment with [facility] on 08/26 to discuss any remaining options. This likely will not be pursued in light of continuing decline - he is not a candidate for any remaining chemo options. Numerous palliative care discussions over the last week - appreciate assistance by Dr Wiseman from palliative care. Patient now DNR/DNI to [facility]/ hospice this week (10) SVT (supraventricular tachycardia): Plan: intermittent throughout this hospital stay. Telemetry. Not a candidate for beta afshin due to low-normal BPs (11) Paralytic ileus of large intestine: Plan: resolved . Multifactorial etiology - electrolyte disturbances, copious amounts of imodium at home pre-hospital, immobility, etc. CT a/p 08/09/22 without obstruction. (12) Antineoplastic chemotherapy induced pancytopenia: Plan: resolved (13) Neutropenia: Plan: 2nd to recent chemotherapy for stage 4 pancreatic ca -- resolved. (14) Hypothyroidism: Plan: TSH 05/2022 wnl . 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 Supportive care (16) Candidiasis of mouth and esophagus: Plan: resolved (17) History of DVT (deep vein thrombosis): Plan: He is now off Eliquis due to suspected upper GI bleeding (18) Severe protein-calorie malnutrition: Plan: Per [place] criteria. Dietary supplements recommended. Low protein levels undoubtedly contributing to anasarca (19) DVT prophylaxis: Plan: Ambulation. He is off Eliquis due to suspected upper GI bleeding (20) Vitamin D deficiency: Plan: Oral supplementation (21) Hypophosphatemia: Plan: replaced. Resolved (22) Acute metabolic encephalopathy: Plan: Present on admission. Now resolved . Head CT scan negative for metastatic disease (23) Urinary retention: Plan: cont mcginnis . Has severe scrotal edema from 3rd spacing (24) Goals of care, counseling/discussion: Plan: Eventual discharge to [facility] with hospice care Plan Eventual discharge to [facility] with hospice care Admission and Anticipated Discharge Date Admission Date: August 04, 2022 Subjective Alert and oriented. No distress. He stated he had some shortness of breath earlier this morning which has since resolved. No associated choking episodes. Portable chest x-ray has been ordered and is pending. He is now on Carafate and oral Protonix for the recent suspected upper GI bleed. Eliquis remains on hold. Placement at [facility] is pending Review of Systems Review of Systems: Constitutional-no fever or chills ENT-no blurred vision, no double vision, no epistaxis, no sore throat Respiratory-no cough, no wheezing. He did have shortness of breath earlier today of uncertain etiology Cardiac-no palpitations, no chest pain, no syncope GI-no nausea, vomiting, diarrhea, melena, hematochezia -no urinary retention, no urinary incontinence, no dysuria, no hematuria Musculoskeletal-no joint pain, no muscle tenderness Skin-no bruising, no rashes, no pruritus Neuro-no isolated weakness, no paresthesia, no weakness Psych-no depression, no anxiety Physical Exam Physical Exam: General-alert and oriented x3, no fevers, no chills HEENT-head atraumatic and normocephalic, pupils equal and reactive to light, extraocular muscles intact Neck-no lymphadenopathy or thyromegaly, trachea midline Chest-clear to auscultation percussion. No rales wheezing or rhonchi Cardiac-regular rate and rhythm, normal S1 and S2 Abdomen-normal bowel sounds, nontender, no hepatosplenomegaly Extremities-no cyanosis, clubbing, or edema Neuro-cranial nerves II through XII intact, motor and sensory function within normal limits, strength symmetrical, no focal deficits Psych-normal affect, normal mood Results & Data Results & Data Vital Signs (Past 12 Hours) Vital Signs Temp Pulse Pulse Resp BP BP Pulse Ox 08/25/22 08:00 08/25/22 08:00 89 08/25/22 11:24 36.6 C 86 16 105/62 97 08/25/22 08:07 36.5 C 90 14 108/56 L 90 08/25/22 03:24 36.8 C 93 H 20 128/69 93 O2 Del Method O2 Flow Rate 08/25/22 08:00 Nasal Cannula 4 08/25/22 08:00 08/25/22 11:24 Nasal Cannula 08/25/22 08:07 Nasal Cannula 08/25/22 03:24 Room Air Laboratory Results 08/24/22 07:37 08/24/22 07:37 PG Care Time/CCT Total # of Minutes Spent Total Time Spent with Patient: Total time spent is greater than 50% in coordination of care (as documented) at patient's floor/unit and/or counseling patient: Coding Level of Care Code 69611 SUB INP/OBS CARE 3/50MIN Diagnoses Anasarca R60.1 Coffee ground emesis K92.0 Acute diastolic CHF (congestive heart failure) I50.31 Hypocalcemia E83.51 Hypokalemia E87.6 Hypomagnesemia E83.42 Atrial fibrillation with RVR I48.91 Cellulitis of right leg L03.115 Adenocarcinoma carcinomatosis C80.0 SVT (supraventricular tachycardia) I47.1 Paralytic ileus of large intestine K56.0 Antineoplastic chemotherapy induced pancytopenia D61.810; T45.1X5A Neutropenia D70.9 Hypothyroidism E03.9 Post-polio syndrome G14 Candidiasis of mouth and esophagus B37.81; B37.0 History of DVT (deep vein thrombosis) Z86.718 Severe protein-calorie malnutrition E43 DVT prophylaxis Z29.9 Vitamin D deficiency E55.9 Hypophosphatemia E83.39 Acute metabolic encephalopathy G93.41 Urinary retention R33.9 Goals of care, counseling/discussion Z71.89
--- NOTE | 2022-08-25 15:31 | XRay Report ---
XR chest 1V portable CLINICAL HISTORY: Dyspnea. COMPARISON STUDY: Chest radiograph August 19, 2022. FINDINGS: Left subclavian [id number] is in place. There is no pneumothorax. [id number] bila teral pleural effusions are noted with associated airspace opacities. Moderate pulmonary edema persis ts. Cardiomediastinal silhouette is stable. IMPRESSION: Persistent pulmonary edema with small to moderate bilateral pleural effusions and associa lucy airspace opacities. ACT 112: Negative or not required by law. Electronically signed by: Stevie Riley M.D. 08/25/2022 3:30 PM
[2022-08-25] MEDS: MIRTAZAPINE TAB 15 MG TAB PO SCH (20:10)
[2022-08-25] MEDS: MELATONIN 3 MG TAB PO SCH (20:10)
[2022-08-25] MEDS: PANTOprazole 40 MG TAB PO SCH (20:59)
[2022-08-26] MEDS: CALCIUM CARBONATE 500 MG CHEWABLE TAB PO SCH ×2 (07:26→12:41)
[2022-08-26] MEDS ORDERED: FUROSEMIDE 40 MG/4 ML VIAL IV STA (09:13)
[2022-08-26] MEDS: HEPARIN 100 UNIT/ML 5ML FLUSH FLUSH PRN (09:20)
[2022-08-26] MEDS: SUCRALFATE 1 GM TAB PO SCH ×4 (09:27→20:06)
[2022-08-26] MEDS: LEVOTHYROXINE SODIUM 100 MCG TABLET PO SCH (09:28)
[2022-08-26] MEDS: oxyBUTYnin chloride 5 MG TAB PO SCH ×3 (09:30→20:04)
[2022-08-26] MEDS: BENZONATATE 100 MG CAPSULE PO SCH ×3 (09:30→20:03)
[2022-08-26] MEDS: POLYETHYLENE (MIRALAX) 17 GM PACK PO SCH (09:35)
[2022-08-26] MEDS: PANTOprazole 40 MG TAB PO SCH ×2 (12:38→20:05)
--- NOTE | 2022-08-26 16:19 | Hospitalist Progress Note ---
Date of Service August 26, 2022 Assessment & Plan (1) Anasarca: Plan: Due to advanced age pancreatic cancer. Parenteral Lasix ordered again today, August 26. We will monitor intake and output. (2) Coffee ground emesis: Plan: occurred earlier this admission. Now resolved. Continue Protonix and C arafate. Eliquis has been stopped. (3) Acute diastolic CHF (congestive heart failure): Plan: Parenteral Lasix again today, August 26. Monitor intake and output. (4) Hypocalcemia: Plan: acute on chronic . Serial labs. Continue p.o. supplementation. Known vit D deficiency. (5) Hypokalemia: Plan: Oral supplementation. Serial labs (6) Hypomagnesemia: Plan: Oral supplementation. Serial labs (7) Atrial fibrillation with RVR: Plan: Medical management. Currently in normal sinus rhythm. He is off Eliquis due to suspected upper GI bleeding (8) Cellulitis of right leg: Plan: present on admission. Now resolved after IV/PO abx earlier this stay. 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 Follows with Dr Arroyo, [facility]. Recently initiated gemcitabine and abraxane. Last chemo was 07/31/22. Recent CT a/p findings show progressive enlargement of primary pancreatic mass and carcinomatosis findings are also worse. He had a previously scheduled telehealth appointment with [facility] on 08/26 to discuss any remaining options. This likely will not be pursued in light of continuing decline - he is not a candidate for any remaining chemo options. Numerous palliative care discussions over the last week - appreciate assistance by Dr Wiseman from palliative care. Patient now DNR/DNI (10) SVT (supraventricular tachycardia): Plan: intermittent throughout this hospital stay. Telemetry. Not a candidate for beta afshin due to low-normal BPs (11) Paralytic ileus of large intestine: Plan: resolved . Multifactorial etiology. CT a/p 08/09/22 without obstruction. (12) Antineoplastic chemotherapy induced pancytopenia: Plan: resolved (13) Neutropenia: Plan: 2nd to recent chemotherapy for stage 4 pancreatic ca -- resolved. (14) Hypothyroidism: Plan: TSH 05/2022 wnl . 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 Supportive care (16) Candidiasis of mouth and esophagus: Plan: resolved (17) History of DVT (deep vein thrombosis): Plan: He is now off Eliquis due to suspected upper GI bleeding. Lovenox SQ (18) Severe protein-calorie malnutrition: Plan: Per [place] criteria. Dietary supplements recommended. Low protein levels undoubtedly contributing to anasarca (19) DVT prophylaxis: Plan: Lovenox SQ. he is off Eliquis now (20) Vitamin D deficiency: Plan: Oral supplementation (21) Hypophosphatemia: Plan: replaced. Resolved (22) Acute metabolic encephalopathy: Plan: Present on admission. Now resolved . Head CT scan negative for metastatic disease (23) Urinary retention: Plan: cont mcginnis . Has severe scrotal edema from 3rd spacing (24) Goals of care, counseling/discussion: Plan: Eventual discharge to [facility] with hospice care Plan Eventual discharge to [facility] with hospice care Admission and Anticipated Discharge Date Admission Date: August 04, 2022 Subjective Portable chest x-ray was again read as pulmonary edema. The patient is asymptomatic at rest on supplemental oxygen at 5 L. Will administer parenteral Lasix today to see if this helps in any way. Anticipate eventual discharge to [facility] hospice. Son is at the bedside Review of Systems Review of Systems: Constitutional-no fever or chills ENT-no blurred vision, no double vision, no epistaxis, no sore throat Respiratory-no cough, no wheezing. He did have shortness of breath earlier today of uncertain etiology Cardiac-no palpitations, no chest pain, no syncope GI-no nausea, vomiting, diarrhea, melena, hematochezia -no urinary retention, no urinary incontinence, no dysuria, no hematuria Musculoskeletal-no joint pain, no muscle tenderness Skin-no bruising, no rashes, no pruritus Neuro-no isolated weakness, no paresthesia, no weakness Psych-no depression, no anxiety Physical Exam Physical Exam: General-alert and oriented x3, no fevers, no chills HEENT-head atraumatic and normocephalic, pupils equal and reactive to light, extraocular muscles intact Neck-no lymphadenopathy or thyromegaly, trachea midline Chest-clear to auscultation percussion. No rales wheezing or rhonchi Cardiac-regular rate and rhythm, normal S1 and S2 Abdomen-normal bowel sounds, nontender, no hepatosplenomegaly Extremities-no cyanosis, clubbing, or edema Neuro-cranial nerves II through XII intact, motor and sensory function within normal limits, strength symmetrical, no focal deficits Psych-normal affect, normal mood Results & Data Results & Data Vital Signs (Past 12 Hours) Vital Signs Temp Pulse Pulse Resp BP Pulse Ox O2 Del Method 08/26/22 15:33 36.9 C 88 20 116/58 L 98 Nasal Cannula 08/26/22 14:00 Nasal Cannula 08/26/22 14:00 97 Nasal Cannula 08/26/22 12:30 97 Nasal Cannula 08/26/22 10:00 98 Nasal Cannula 08/26/22 09:30 Nasal Cannula 08/26/22 11:36 36.5 C 90 20 117/55 L 98 Nasal Cannula 08/26/22 07:33 80 08/26/22 07:21 36.6 C 81 20 121/57 L 97 Nasal Cannula O2 Flow Rate 08/26/22 15:33 2 08/26/22 14:00 2 08/26/22 14:00 3 08/26/22 12:30 4 08/26/22 10:00 5 08/26/22 09:30 5 08/26/22 11:36 3 08/26/22 07:33 08/26/22 07:21 5 Laboratory Results 08/24/22 07:37 08/24/22 07:37 PG Care Time/CCT Total # of Minutes Spent Total Time Spent with Patient: Total time spent is greater than 50% in coordination of care (as documented) at patient's floor/unit and/or counseling patient: Coding Level of Care Code 54714 SUB INP/OBS CARE 2/35MIN Diagnoses Anasarca R60.1 Coffee ground emesis K92.0 Acute diastolic CHF (congestive heart failure) I50.31 Hypocalcemia E83.51 Hypokalemia E87.6 Hypomagnesemia E83.42 Atrial fibrillation with RVR I48.91 Cellulitis of right leg L03.115 Adenocarcinoma carcinomatosis C80.0 SVT (supraventricular tachycardia) I47.1 Paralytic ileus of large intestine K56.0 Antineoplastic chemotherapy induced pancytopenia D61.810; T45.1X5A Neutropenia D70.9 Hypothyroidism E03.9 Post-polio syndrome G14 Candidiasis of mouth and esophagus B37.81; B37.0 History of DVT (deep vein thrombosis) Z86.718 Severe protein-calorie malnutrition E43 DVT prophylaxis Z29.9 Vitamin D deficiency E55.9 Hypophosphatemia E83.39 Acute metabolic encephalopathy G93.41 Urinary retention R33.9 Goals of care, counseling/discussion Z71.89
[2022-08-26] MEDS: MELATONIN 3 MG TAB PO SCH (20:03)
[2022-08-26] MEDS: MIRTAZAPINE TAB 15 MG TAB PO SCH (20:04)
[2022-08-27] MEDS: LEVOTHYROXINE SODIUM 100 MCG TABLET PO SCH (07:45)
[2022-08-27] MEDS: PANTOprazole 40 MG TAB PO SCH (08:40)
[2022-08-27] MEDS: POLYETHYLENE (MIRALAX) 17 GM PACK PO SCH (08:41)
[2022-08-27] MEDS: oxyBUTYnin chloride 5 MG TAB PO SCH ×2 (08:41→14:52)
[2022-08-27] MEDS: BENZONATATE 100 MG CAPSULE PO SCH ×2 (08:41→14:51)
[2022-08-27] MEDS: SUCRALFATE 1 GM TAB PO SCH ×2 (08:46→14:52)
[2022-08-27 08:51] LABS: Basophils # (auto) 0.05 K/uL (0-0.2); Basophils % (auto) 0.5 %; Eosinophils # (auto) 0.42 K/uL (0-0.50); Hematocrit (blood only) 26.8 % (42.0-52.0); Hemoglobin 8.9 g/dl (14.0-18.0); Lymphocytes # (auto) 1.14 K/uL (1.2-3.4); Mean Corpuscular Hemoglobin 29.8 pg (25.0-34.0); Mean Corpuscular Hgb Conc 33.2 g/dL (32.0-36.0); Mean Corpuscular Volume 89.6 fL (80.0-100.0); Mean Platelet Volume 9.9 fL (9.4-12.4); Monocytes # (auto) 0.98 K/uL (0.11-0.59); Monocytes % (auto) 9.4 %; Neutrophils # (auto) 7.72 K/uL (1.40-6.50); Neutrophils % (auto) 74.1 %; Platelet Count 341 K/uL (130-400); RDW Coefficient of Variation 16.7 % (11.5-14.5); RDW Standard Deviation 52.8 fL (36.4-46.3); Red Blood Count 2.99 M/uL (4.70-6.10); White Blood Count 10.41 K/ul (4.8-10.8)
[2022-08-27] MEDS ORDERED: ENOXAPARIN INJ 40 MG/0.4 ML SYR SQ SCH (09:00)
[2022-08-27 09:06] LABS: BUN Creatinine Ratio 17.6 (10-20); Calcium 7.8 mg/dl (8.6-10.3); Creatinine Clr Calc Pharmacy 65.6 ml/min; Est GFR (African American) 92.1 ml/min; Est GFR (Non-African American) 79.5 ml/min; Potassium 3.7 mmol/L (3.5-5.1)
[2022-08-27] MEDS ORDERED: FUROSEMIDE 40 MG/4 ML VIAL IV STA (10:25)
--- NOTE | 2022-08-27 10:46 | Palliative Care Progress Note ---
Date of Service August 27, 2022 Assessment & Plan (1) Palliative care encounter: Plan: Likely discharge to [facility] today. Plan for trial of rehab. He is aware that rehab potential is limited. He will transition to hospice when appropriate. He tells me that he has had good discussions with family members and has been doing life review. Continue supportive care for symptom management. Admission and Anticipated Discharge Date Admission Date: August 04, 2022 Subjective Currently on 2L NC. Denies dyspnea. Negative fluid balance 2500cc last 24 hours. He denies pain. Review of Systems Review of Systems: ESAS Pain0/3 Dyspnea 0/3 Nausea 0/3 Drowsiness 1/3 Physical Exam Constitutional: + frail appearing Respiratory: normal respiratory effort; no labored breathing Cardiovascular: decreased edema Musculoskeletal: muscle atrophy Neurologic: Speech / Cognition: normal cognition Results & Data Vital Signs (Past 12 Hours) Vital Signs Temp Pulse Pulse Resp BP Pulse Ox O2 Del Method 08/27/22 07:33 97.5 F L 88 16 124/66 93 Nasal Cannula 08/27/22 04:18 98.1 F 94 H 20 129/62 96 Nasal Cannula 08/27/22 00:51 83 08/26/22 23:53 98.6 F 93 H 20 123/61 94 Nasal Cannula O2 Flow Rate 08/27/22 07:33 2 08/27/22 04:18 2 08/27/22 00:51 08/26/22 23:53 2 PG Care Time/CCT Total # of Minutes Spent Total Time Spent with Patient: Total time spent is greater than 50% in coordination of care (as documented) at patient's floor/unit and/or counseling patient: Coding Level of Care Code 03513 SUB INP/OBS CARE 1/25MIN Diagnoses Palliative care encounter Z51.5
--- NOTE | 2022-08-27 12:35 | Discharge Summary ---
Date of Service August 27, 2022 Admission HPI Per Admitting Provider 87 y/o male w/ metastatic presumably pancreatic adenocarcinoma, preDM, HLD, and hypothyroidism who presents w/ generalized weakness since receiving his 3rd chemo treatment on 07/31/22. He has essentially been bedbound for the past few days secondary to this. He had intraable nausea w/ some episodes of emesis post chemo. This was followed by a day of diarrhea. PO intake has been poor. He also noted R foot swelling and redness. He denies having subjective fevers/chills. Per chart review, hx of provoked DVTx1 in the 1970s. Patient denies other VTE risk factors such as family hx. He has had dyspnea in the past few days at rest that he attributes to the generalized weakness. Patient denies hx of CHF. He has not had recently coughing symptoms. He quit tobacco in the . Currently, he has mild abd discomfort. is present at bedside and helped provide additional history. ED course: vanc+cefepime. 2L NSS. Principal Diagnosis Stage IV pancreatic cancer with carcinomatosis, anasarca, pulmonary edema, acute hypoxic respiratory failure, atrial fibrillation with rapid ventricular rate, hypocalcemia, hypokalemia, hypomagnesemia Discharge Exam General-alert and oriented x3, no fevers, no chills HEENT-head atraumatic and normocephalic, pupils equal and reactive to light, extraocular muscles intact Neck-no lymphadenopathy or thyromegaly, trachea midline Chest-clear to auscultation percussion. No rales wheezing or rhonchi Cardiac-regular rate and rhythm, normal S1 and S2 Abdomen-normal bowel sounds, nontender, no hepatosplenomegaly Extremities-no cyanosis. Edema has improved considerably with Lasix diuresis Neuro-cranial nerves II through XII intact, motor and sensory function within normal limits, strength symmetrical, no focal deficits Psych-normal affect, normal mood Discharge Data Allergies Allergy/AdvReac Type Severity Reaction Status Date / Time No Known Allergies Allergy Verified 08/04/22 19:07 Consultations 08/04/22 19:53 ED Decision to Admit Stat 08/10/22 09:24 Consult Nephrology Routine 08/13/22 11:41 Consult Urology Routine 08/17/22 14:13 Consult Palliative Care Routine Ordered Studies 08/05/22 US venous doppler LE RT Routine 08/09/22 15:04 CT abd pelvis IV con only Routine Head CT [CT head/brain wo con] Routine Hospital Course (1) Anasarca: Due to advanced age pancreatic cancer. High-dose parenteral Lasix has helped considerably with the edema. We will monitor intake and output. (2) Coffee ground emesis: occurred earlier this admission. Now resolved. Continue Protonix and Carafate. Eliquis has been stopped. (3) Acute diastolic CHF (congestive heart failure): Parenteral Lasix again today, August 27. Improved. Monitor intake and output. (4) Hypocalcemia: acute on chronic . Serial labs. Continue p.o. supplementation. Known vit D deficiency. (5) Hypokalemia: Oral supplementation. Serial labs (6) Hypomagnesemia: Oral supplementation. Serial labs (7) Atrial fibrillation with RVR: Medical management. Currently in normal sinus rhythm. He is off Eliquis due to suspected upper GI bleeding (8) Cellulitis of right leg: present on admission. Now resolved after IV/PO abx earlier this stay. (9) Adenocarcinoma carcinomatosis: stage 4 pancreatic ca[address] Follow[address] with Dr Arroyo, [facility]. Recently initiated gemcitabine and abraxane. Last chemo was 07/31/22. Recent CT a/p findings show progressive enlargement of primary pancreatic mass and carcin omatosis findings are also worse. He had a previously scheduled telehealth appointment with [facility] on 08/26 to discuss any remaining options. This likely will not be pursued in light of continuing decline - he is not a candidate for any remaining chemo options. Numerous palliative care discussions over the last week - appreciate assistance by Dr Wiseman from palliative care. Patient now DNR/DNI (10) SVT (supraventricular tachycardia): intermittent throughout this hospital stay. Telemetry. Not a candidate for beta afshin due to low-normal BPs (11) Paralytic ileus of large intestine: resolved . Multifactorial etiology. CT a/p 08/09/22 without obstruction. (12) Antineoplastic chemotherapy induced pancytopenia: resolved (13) Neutropenia: 2nd to recent chemotherapy for stage 4 pancreatic ca -- resolved. (14) Hypothyroidism: TSH 05/2022 wnl . 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 Supportive care (16) Candidiasis of mouth and esophagus: resolved (17) History of DVT (deep vein thrombosis): He is now off Eliquis due to suspected upper GI bleeding. Lovenox SQ (18) Severe protein-calorie malnutrition: Per [place] criteria. Dietary supplements recommended. Low protein levels undoubtedly contributing to anasarca (19) DVT prophylaxis: Lovenox SQ. He is off Eliquis now (20) Vitamin D deficiency: Oral supplementation (21) Hypophosphatemia: replaced. Resolved (22) Acute metabolic encephalopathy: Present on admission. Now resolved . Head CT scan negative for metastatic disease (23) Urinary retention: cont mcginnis . Has severe scrotal edema from 3rd spacing (24) Goals of care, counseling/discussion: Eventual discharge to [facility] with hospice care Plan discharge to [facility] with hospice care todayAugust 27 Total Time Total Time Spent Total Time Spent (In Minutes): 40 minutes Discharge Plan Discharge Items Patient Disposition: Transfer Assisted Fac Reason For Visit: GENERALIZED WEAKNESS Discharge Diagnosis: Stage IV pancreatic cancer with carcinomatosis, anasarca, pulmonary edema, acute hypoxic respiratory failure, atrial fibrillation with rapid ventricular rate, hypocalcemia, hypokalemia, hypomagnesemia Activity: Resume your previous activity Non-emergency contact: Primary Care Provider Call non-emergency contact if: you have any medication questions Follow-up/Referrals: ProHosea MD [Primary Care Provider] - Diet: Regular and Heart Healthy Addtl Attending Provider Instructions: director learning at [facility] will assume care. Eliquis has been discontinued Pending Studies at Discharge: No Stand-Alone Forms: My [facility] Skilled Items Patient informed of condition?: Yes DNR: Yes Discharge Level of Care: Skilled Communicable Disease: No Discharge Prognosis: Deteriorating Lines: None Urinary Catheter: Yes Medications and DC Order Prescriptions: New oxycodone 5 mg Tablet 5 mg PO Q4H PRN (Reason: pain) Qty: 10 0RF melatonin 3 mg Tablet 3 mg PO HS Qty: 0 0RF mirtazapine 15 mg Tablet 7.5 mg PO HS Qty: 0 0RF simethicone [Gas Relief (simethicone)] 80 mg Tablet,Chewable 80 mg PO Q6H PRN (Reason: abdominal distention) Qty: 0 0RF acetaminophen 325 mg Tablet 650 mg PO Q4H PRN (Reason: fever or pain) Qty: 0 0RF polyethylene glycol 3350 [Miralax] 17 gram Powder In Packet 17 g PO DAILY Qty: 0 0RF sucralfate 1 gram Tablet 1 g PO QID Qty: 0 0RF oxybutynin chloride 5 mg Tablet 5 mg PO TID Qty: 0 0RF ergocalciferol (vitamin D2) 1,250 mcg (50,000 unit) Capsule 50,000 unit PO Q7D@0900 Qty: 0 0RF benzonatate 100 mg Capsule 100 mg PO TID Qty: 0 0RF enoxaparin [Lovenox] 40 mg/0.4 mL Syringe 40 mg subcut QAM Qty: 0 0RF Continued Metamucil 3.4 gram/5.4 gram powder 1 tbsp PO BID PRN (Reason: Constipation) Rx Instructions: mix into at least 8 oz of water or juice before administering levothyroxine 100 mcg tablet 100 mcg PO QAM calcium carbonate-mag hydroxid 550-110 mg Tablet,Chewable 2 tab PO Q4H PRN (Reason: Acid Reflux) acetaminophen [Tylenol] 325 mg Tablet 325 mg PO QID PRN (Reason: Pain) loperamide [Imodium] 2 mg Capsule 2 mg PO DIRECTED PRN (Reason: Diarrhea) ondansetron HCl 8 mg tablet 8 mg PO Q8H PRN (Reason: NAUSEA/VOMITING) prochlorperazine maleate 10 mg tablet 10 mg PO Q6H PRN (Reason: NAUSEA/VOMITING) lidocaine-prilocaine 2.5-2.5 % cream 1 applic topical DIRECTED PRN (Reason: PRIOR TO PROCEDURES) pantoprazole 40 mg tablet,delayed release (DR/EC) 40 mg PO HS oxycodone 5 mg tablet 5 mg PO .Q4-6H PRN (Reason: Pain) Multivitamin 50 Plus Tablet 1 tab PO DAILY Discontinued cholecalciferol (vitamin D3) 50 mcg (2,000 unit) capsule 50 mcg PO DAILY Discharge Orders: Discharge Order (Routine); Ordered 08/27/22 Ordered By: Tyler Morgan Admission Data Admit Date/Time: 08/04/22 21:19 Attending Provider: Tyler Morgan Admit Provider: Jerry Mays Primary Care Provider: Hosea Patel Other Providers: Jerry Mays ; Brandon Caceres ; Tristan Cosby at [place] ; [place],[facility] ; Angelita Wiseman Coding Level of Care Code 06057 INP/OBS DISCH >30 MIN Diagnoses Anasarca R60.1 Coffee ground emesis K92.0 Acute diastolic CHF (congestive heart failure) I50.31 Hypocalcemia E83.51 Hypokalemia E87.6 Hypomagnesemia E83.42 Atrial fibrillation with RVR I48.91 Cellulitis of right leg L03.115 Adenocarcinoma carcinomatosis C80.0 SVT (supraventricular tachycardia) I47.1 Paralytic ileus of large intestine K56.0 Antineoplastic chemotherapy induced pancytopenia D61.810; T45.1X5A Neutropenia D70.9 Hypothyroidism E03.9 Post-polio syndrome G14 Candidiasis of mouth and esophagus B37.81; B37.0 History of DVT (deep vein thrombosis) Z86.718 Severe protein-calorie malnutrition E43 DVT prophylaxis Z29.9 Vitamin D deficiency E55.9 Hypophosphatemia E83.39 Acute metabolic encephalopathy G93.41 Urinary retention R33.9 Goals of care, counseling/discussion Z71.89
== END 2022-08-27 16:09 | DRG 374 ==
LOC: ED 17:35 → SUATTDRO 21:19 → 2N 21:19